=== PATIENT | male | born 1955 | race Caucasian/White ===

== ENCOUNTER 2021-09-03 06:53 | Observation (INO) ==
--- NOTE | 2021-08-30 16:15 | Anesthesiology Consultation ---
Date of Service August 30, 2021 Assessment & Plan (1) Encounter for pre-operative examination: - check CBC with diff, BMP and coags am DOS. - Pt expresses concern with neuraxial anesthesia related to concerns with significant pain/paresthesias with cortisone injections in past. We discussed GA vs neuraxial anesthesia risks/benefits.He will have final discussion with anesthesiologist am DOS. - Surgeon's office requested anesthesia evaluation if patient is acceptable outpatient joint candidate. Case was reviewed with Dr. Shelton who advised patient isNOToutpatient joint candidate given his cardiac history. Laura at surgeon's office made aware. - cardiology office visit 07/08/2021 [place]: "...history of CAD s/p RCA and 1st Diagonal Stents, Dyslipidemia, Hypertension, COPD, Anxiety/Depression, and Tobacco Use -- who presents today for routine Cardiologic Follow-up...stable and asymptomatic from a cardiac standpoint...remains physically active on a daily basis -- and he admits to chronic APONTE that consistently responds to his albuterol rescue inhaler. Patient has not experienced any angina pectoris or symptoms, overt signs or symptoms heart failure, nor has he had any symptoms suggestive of dysrhythmia...blood pressure appears to be controlled..." Patient advised to continue medication regimen, increase aerobic activity, stop tobacco use and follow-up in 6 months. - medical pre-op evaluation and optimization 06/09/2021 [place]: "...preoperative clearance for an upcoming RIGHT TKA surgical intervention...After a careful revi ew of his chart, evaluation of his medical file, and a thorough physical examination, I have found that he is an acceptable risk surgical candidate. He is guarded under the condition of his cardiac, pulmonary functional capacity. At this time, patient is medically cleared. After careful discussion of risks and benefits of surgical intervention, Mr. Kaur wishes to pursue the proposed surgical intervention...History of coronary artery disease / htn - stable...Restart Lisinopril and Metoprolol. Continue taking aspirin 81 milligrams, atorvastatin 80 milligrams, lisinopril 2.5 milligrams, metoprolol, and nitroglycerin as needed..." - COVID screening: Per child welfare director on 08/30/2021: Travel screen negative, no known COVID-19 positive contacts or current COVID-19 related symptoms in past 2 weeks. Patient vaccinated. Surgeon's office not requiring pre-op COVID testing given positive COVID test 06/15/2021. Chart Review Chart Review: Acceptable Risk for Surgery and Patient NOT seen in Pre Admission Testing History Surgery Operation Date: 09/03/21 13:00 Proposed Procedures p Right Total Knee Arthroplasty - Joshua Andrew DO Surgery re-scheduled since 05/19/2021 anesthesia review. Below information obtained from that review and updated records. Height/Weight Height: 5 ft 8 in Weight: 76.204 kg Allergies Allergy/AdvReac Type Severity Reaction Status Date / Time ibuprofen [From Motrin] Allergy Intermediate GI Upset, Verified 08/30/21 15:06 diffuse rash Medications Home Medications Medication Instructions Recorded Confirmed Last Taken aspirin 81 mg tablet,delayed 81 mg PO QAM 03/19/18 08/30/21 02/03/21 08:00 release (Aspir-) nitroglycerin 0.4 mg sublingual 0.4 mg SUBLINGUAL DIRECTED PRN 03/19/18 08/30/21 Unknown tablet (Nitrostat) albuterol sulfate 90 mcg/actuation 2 puffs INH Q6H PRN #6.7 gm 11/13/19 08/30/21 02/02/21 14:30 aerosol inhaler (Ventolin HFA) capsaicin 0.1 % topical cream 1 applic TOPICAL TID PRN #60 g 09/16/20 08/30/21 Unknown (Arthritis Pain Relief (capsaicin)) evolocumab 140 mg/mL subcutaneous See Rx Instructions .ROUTE 11/19/20 08/30/21 01/21/21 17:00 syringe (Repatha Syringe) .COMPLEX #6 ml ezetimibe 10 mg tablet 10 mg PO QAM #90 tab 12/29/20 08/30/21 02/03/21 08:00 lisinopril 2.5 mg tablet 2.5 mg PO QAM #90 tab 06/09/21 08/30/21 Unknown metoprolol succinate 25 mg 25 mg PO QAM #90 tab 06/09/21 08/30/21 Unknown tablet,extended release 24 hr betamethasone dipropionate 0.05 % 1 applic TOPICAL BID PRN #45 g 07/26/21 08/30/21 Unknown topical cream tramadol 50 mg tablet 50 mg PO Q6H PRN #30 tab 08/15/21 08/30/21 Unknown Past Medical History Medical History Anxiety and depression Bipolar disorder Chronic back pain Chronic obstructive pulmonary disease, unspecified stable, rescue inhaler use every few days with higher levels of activity Closed compression fracture of L3 vertebra 02/2019 (no surgical intervention/conservative management) Coronary artery disease First diagonal and RCA PCI (2012, 2014) Cardiac Cath 2017 ([employer] TUBE of distal circumflex) Degenerative disc disease Dyslipidemia (high LDL; low HDL) Hearing difficulty Heart attack Total x3 () Follows with [facility] ([facility]) History of COVID-19 06/15/21 *SYMPTOMS ONLY NAUSEA (TESTED AT [facility]) Hx of rheumatic fever As child Hypertension Post traumatic stress disorder Restless legs syndrome Patient denied h/o stroke, seizures, heart failure, DM, blood clots or blood transfusions. Past Family History Family History Other Adopted Past Surgical History Surgical History History of arthroscopy Right knee PMM, chondroplasty (02/04/21): LMA#4 at [facility]. No issues per anesthesia progress note. History of back surgery Lumbar decompression History of cardiac cath 2008 ([facility]) First diagonal and RCA PCI (2012, 2014) Cardiac Cath 03/2018 [employer] TU[employer] of distal circumflex ([facility]) History of cholecystectomy History of cochlear implant right osteointegrated implant History of colonoscopy History of heart artery stent First diagonal and RCA PCI (2012, 2014) History of laminectomy L4-S1 Social History Smoking Status: Current every day smoker tobacco type: cigarettes Smoking cigarettes per day: 10 CIG PER DAY*ADVISED Do You Dip or Chew Tobacco: No Hx Alcohol Use: No Alcohol type: beer alcohol intake frequency: other Hx Substance Use: Yes substance use type: marijuana Substance Use Type Other:: smokes few times per month, aware of pre-op interval Last Used Substance: Unknown Last Used Substance Other:: ADVISED Review of Systems Patient denied chest pain, shortness of breath, dyspnea on exertion, snoring, witnessed apneas, reflux, fever, chills, cough, wheezing, or palpitations. Physical Exam Vital Signs Vitals BP 123/79 P 78 TEMP 97.7 SP02 98% on RA RESP 17 Physical Full cervical extension range of motion without pain Full TMJ range of motion TMD 3.5 finger breaths Mallampati Score 3 Dentition: edentulous, full upper and lower dentures Lungs: normal respiratory effort. Clear throughout to auscultation, no adventitious breath sounds Cardiac: regular rate and rhythm, no murmurs noted Carotid arteries: negative bruit bilat Extremities: no distal extremity edema Lab Results Anesthesia Preop Results Results Lab Comments: K: 5.3 05/19/2021, 4.3 05/25/2021. Testing Electrocardiogram Date: 05/19/21 Normal sinus rhythm, rate 74 bpm. Cardiac Catheterization Date: 03/19/18 Summary: 1. Severe single-vessel coronary artery disease -Chronic total occlusion of distal circumflex; left PLB fills via left to left collaterals 40-50% mid LAD Widely patent diagonal, R-PAV stents 2. Normal intracardiac filling pressure Recommendations: Maximize antianginal therapy Continued ASCVD risk factor modification If refractory symptoms in the future could consider FFR with possible PCI to mid LAD. PCI of LAD would likely involve long, small-diameter stent across bifurcation of first diagonal. Other Testing CT lung 09/18/2020: IMPRESSION: 1. Minimal dependent groundglass opacities of the posterior segment right upper lobe suggest atelectasis or a mild nonspecific pneumonitis. 2. Mild emphysema. 3. No suspicious pulmonary nodules. 4. Extensive coronary artery calcifications. [place] AAA screening 09/18/2020: IMPRESSION: Mildly ectatic distal abdominal aorta without evidence for aneurysm. This is similar to the prior study Aorto-iliac duplex 08/26/2020: <49% stenosis in the aorto-iliac system Ectatic proximal abdominal aorta (2.5 cm) Compared to 01/16/2019, there are no significant changes
--- NOTE | 2021-09-02 13:51 | History & Physical Report ---
Date of Service September 02, 2021 Assessment & Plan (1) Osteoarthritis of right knee: We will proceed with a right total knee arthroplasty. Postoperatively he will be started on aspirin for DVT prophylaxis and kept overnight for postop medical management. He plans to use energy physical therapy upon discharge. History of Present Illness Chief Complaint: Osteoarthritis of the right knee. Primary Care Provider: HOLA Tonwsend Ray is a pleasant 65-year-old male who I did a right knee arthroscopy on in September 2000. He was found to have advanced arthritis at that time. Unfortunately his knee is never gotten better. He continues to be very painful. After failing extensive conservative treatment, he has elected proceed with a right total knee arthroplasty. Allergies Allergy/AdvReac Type Severity Reaction Status Date / Time ibuprofen [From Motrin] Allergy Intermediate GI Upset, Verified 08/30/21 15:06 diffuse rash Home Medications Medication Instructions Recorded Confirmed Type aspirin 81 mg tablet,delayed 81 mg PO QAM 03/19/18 08/30/21 History release (Aspir-) nitroglycerin 0.4 mg sublingual 0.4 mg SUBLINGUAL DIRECTED PRN 03/19/18 08/30/21 History tablet (Nitrostat) albuterol sulfate 90 mcg/actuation 2 puffs INH Q6H PRN #6.7 gm 11/13/19 08/30/21 Rx aerosol inhaler (Ventolin HFA) capsaicin 0.1 % topical cream 1 applic TOPICAL TID PRN #60 g 09/16/20 08/30/21 Rx (Arthritis Pain Relief (capsaicin)) evolocumab 140 mg/mL subcutaneous See Rx Instructions .ROUTE 11/19/20 08/30/21 Rx syringe (Repatha Syringe) .COMPLEX #6 ml ezetimibe 10 mg tablet 10 mg PO QAM #90 tab 12/29/20 08/30/21 Rx lisinopril 2.5 mg tablet 2.5 mg PO QAM #90 tab 06/09/21 08/30/21 Rx metoprolol succinate 25 mg 25 mg PO QAM #90 tab 06/09/21 08/30/21 Rx tablet,extended release 24 hr betamethasone dipropionate 0.05 % 1 applic TOPICAL BID PRN #45 g 07/26/21 08/30/21 Rx topical cream tramadol 50 mg tablet 50 mg PO Q6H PRN #30 tab 08/15/21 08/30/21 Rx Past Med/Surg History Medical History Anxiety and depression Bipolar disorder Chronic back pain Chronic obstructive pulmonary disease, unspecified stable, rescue inhaler use every few days with higher levels of activity Closed compression fracture of L3 vertebra 02/2019 (no surgical intervention/conservative management) Coronary artery disease First diagonal and RCA PCI (2012, 2014) Cardiac Cath 2017 ([employer] WORK[employer] of distal circumflex) Degenerative disc disease Dyslipidemia (high LDL; low HDL) Hearing difficulty Heart attack Total x3 () Follows with [facility] ([facility]) History of COVID-19 06/15/21 *SYMPTOMS ONLY NAUSEA (TESTED AT [facility]) Hx of rheumatic fever As child Hypertension Post traumatic stress disorder Restless legs syndrome Surgical History History of arthroscopy Right knee PMM, chondroplasty (02/04/21): LMA#4 at [facility]. No issues per anesthesia progress note. 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 ([facility]) History of cholecystectomy History of cochlear implant right osteointegrated implant History of colonoscopy History of heart artery stent First diagonal and RCA PCI (2012, 2014) History of laminectomy L4-S1 Family History Other Adopted Social History Smoking Status: Current every day smoker Tobacco Type: Cigarettes packs per day: 0.5; Cigarettes Per Day: 10 CIG PER DAY*ADVISED; Second Hand Exposure: Yes; Hx Alcohol Use: No Hx Substance Use: Yes Prescribed Medications: Marijuana Last Used Substance: Unknown Last Used Substance Other:: ADVISED Substance Use Type Other:: smokes few times per month, aware of pre-op interval Preferred Language: [place] Communication Ability: Effective Visual Impairment: No Limitations Hearing Ability: Use of Hearing Aid Wood Grainer Required: No Beliefs That Will Affect Care: None marital status: Current Living Situation: Family Current Living Situation Comment: Lives with and daughter current occupational status: retired Feels Safe at Home: Yes caffeine: Yes during the past year weight has: remained stable Dental Care, Regularly: No Physical Activity Frequency: Daily Seatbelt Use: always Sunscreen Use: No Assistive Devices: Denture - Upper, Denture - Lower and Glasses Review of Systems All systems reviewed & are unremarkable except as noted in HPI & below. Physical Exam On physical examination of the right knee, he has no effusion on exam. His motion of 0 to 125 degrees. He has no instability. He has pain over the distal medial femoral condyle and over the medial joint line. Constitutional WD/WN, vitals as above Eyes PERRL, conjunctivae normal, anicteric sclerae ENMT external ear and nose normal, oropharynx normal Neck trachea midline, no thyromegaly Respiratory normal respiratory effort Cardiovascular RRR, no murmur, no edema Gastrointestinal (Abdomen) normal bowel sounds, soft, nontender, no hepatosplenomegaly Psychiatric A+Ox3, euthymic affect Results & Data Results & Data Laboratory Results . Diagnostic Findings X-rays of the right knee do show medial compartment arthritis with some joint space narrowing and some obvious cartilage defects. PG Care Time/CCT Total # of Minutes Spent Total Time Spent with Patient: Total time spent is greater than 50% in coordination of care (as documented) at patient's floor/unit and/or counseling patient: Coding Level of Care Code None Diagnoses Osteoarthritis of right knee M17.11
[~2021-09-03 06:53] MED LIST: ACETAMINOPHEN 500 MG TAB PO SCH; FAMOTIDINE 20 MG TAB PO SCH; GABAPENTIN 300 MG CAP PO SCH; LR 500ML BOLUS, THEN 15ML/HR IV SCH; LR 60ML/HR IV SCH; ceFAZolin 2000MG 2,000 MG/15 ML SYR IV SCH; dexAMETHasone 4 MG TAB PO SCH
[2021-09-03] MEDS ORDERED: ROPIVACAINE 0.5% 5 MG/ML 30 ML VIAL ONE (07:13)
[2021-09-03] MEDS ORDERED: BUPIVACAINE 0.5 % 5 MG/1 ML PF 10ML VIAL ONE (07:13)
[2021-09-03] MEDS ORDERED: MIDAZOLAM HCL 1 MG/ML 2ML VIAL ONE (07:20)
[2021-09-03] MEDS ORDERED: PROPOFOL IV EMULSION 10 MG/ML 20 ML VIAL IV ONE (07:20)
[2021-09-03] MEDS ORDERED: fentaNYL citrate 100 MCG/2 ML VIAL ONE ×2 (07:20→09:38)
[2021-09-03 07:28] LABS: Basophils # (auto) 0.02 K/uL (0-0.2); Basophils % (auto) 0.2 %; Eosinophils % (auto) 2.2 %; Hematocrit (blood only) 49.4 % (42-52); Hemoglobin 17.5 g/dL (14.0-18.0); Immature Granulocytes # (auto) 0.02 K/uL (0.00-0.02); Immature Granulocytes % (auto) 0.2 %; Lymphocytes # (auto) 1.27 K/uL (1.2-3.4); Lymphocytes % (auto) 13.9 %; Mean Corpuscular Hemoglobin 31.8 pg (25-34); Mean Corpuscular Volume 89.7 fL (80-100); Mean Platelet Volume 9.2 fL (7.4-10.4); Monocytes # (auto) 0.87 K/uL (0.11-0.59); Monocytes % (auto) 9.5 %; Neutrophils # (auto) 6.77 K/uL (1.4-6.5); Platelet Count 250 K/uL (130-400); RDW Coefficient of Variation 13.9 % (11.5-14.5); RDW Standard Deviation 45.9 fL (36.4-46.3); Red Blood Count 5.51 M/uL (4.7-6.1); White Blood Count 9.15 K/uL (4.8-10.8)
[2021-09-03 07:37] LABS: Partial Thromboplastin Time 28.6 Seconds (21.0-31.0); Prothrombin Time 10.9 Seconds (9.0-12.0)
[2021-09-03 07:50] LABS: Mean Corpuscular Hgb Conc 35.4 g/dL (32-36)
[2021-09-03 07:56] LABS: Calcium 9.8 mg/dl (8.5-10.1); Creatinine Clr Calc Pharmacy 42.9 ml/min; Est GFR (African American) 49.8 ml/min; Est GFR (Non-African American) 42.9 ml/min; Potassium 4.2 mmol/L (3.5-5.1)
--- NOTE | 2021-09-03 08:09 | History & Physical Bridge Note ---
Date of Service September 03, 2021 History & Physical Bridge Note I have examined the patient, reviewed the History & Physical and in the interval since the performance of the History & Physical I have noted the following changes of clinical significance: no changes noted
[2021-09-03] MEDS ORDERED: TRANEXAMIC ACID 100 MG/ML 10 ML VIAL IV ONE (08:39)
[2021-09-03] MEDS ORDERED: TRANEXAMIC ACID / 0.7% NACL 1000MG/100ML BAG IV ONE (08:40)
[2021-09-03] MEDS ORDERED: ONDANSETRON INJ 2 MG/ML 2 ML VIAL IV PRN ×2 (08:53→12:21)
[2021-09-03] MEDS ORDERED: ePHEDrine sulfate 50 MG/ML AMP IV PRN (08:53)
[2021-09-03] MEDS ORDERED: ATROPINE SULFATE 0.1 MG/ML 10ML SYR IV PRN (08:53)
[2021-09-03] MEDS ORDERED: PROMETHAZINE HCL 12.5 MG in SODIUM CHLORIDE 0.9% 50 ML IV PRN (08:53)
[2021-09-03] MEDS ORDERED: MoRPHine SULFATE 10 MG/ML CARP/VIAL IV PRN (08:53)
[2021-09-03] MEDS ORDERED: TRANEXAMIC ACID 1,000 MG **IV Intra-op IV ONE (09:00)
[2021-09-03] MEDS ORDERED: PHENYLEPHRINE 100MCG/ML 5ML SYR ONE (09:13)
[2021-09-03] MEDS ORDERED: ONDANSETRON INJ 2 MG/ML 2 ML VIAL ONE (09:13)
[2021-09-03] MEDS ORDERED: TRANEXAMIC ACID 1,000 MG **IV Pre-op IV ONE (09:15)
[2021-09-03] MEDS ORDERED: Ketorolac (*for OR use only*) 30 MG, dexAMETHasone 4 MG, KETAMINE HCL (**OR use only) 1... INFIL ONE (09:15)
[2021-09-03] MEDS ORDERED: ePHEDrine sulfate 50 MG/ML AMP ONE (09:24)
--- NOTE | 2021-09-03 10:22 | Operative Report ---
PG Post Operative Report Pre & Post Diagnosis Operation Date: 09/03/21 09:20 Pre-Op Diagnosis: Right Knee Degenerative Joint Disease Post-Op Diagnosis: Right Knee Degenerative Joint Disease I identified the patient and participated in the time-out.: Yes Procedure Operation Date: 09/03/21 09:20 Actual Procedures p Right Total Knee Arthroplasty, Cemented(Right) - Joshua Andrew DO Surgeon Joshua Andrew DO Advanced Developer Joshua Zelaya PAC Estimated Blood Loss 10 Findings Consistent with Post-Op Diagnosis Specimens Right femoral and tibial bone Complications none Disposition Disposition: Recovery Room Indications Ray is a pleasant six 6-year-old male who is been doing with chronic increasing right knee pain. I did knee arthroscopy on him over the last summer. Unfortunately found full-thickness chondral loss. After failing conservative treatment, he elected proceed with a right total knee arthroplasty. Description of Procedure Implants used: I used a [employer] total knee arthroplasty system with a size 10 standard femur, F tibia, 34 oval patella, and a size 10 medial congruent polyethylene bearing. All components were cemented in place with Biomet cement. Ray arrived [facility] for the above procedure. He was seen in the preoperative holding area and the operative extremity was identified and signed. He was given a preoperative antibiotic, TXA, a spinal anesthetic and an adductor nerve block. He was taken back to the operating room and laid on the table in supine position. He was given basic sedation. The operative knee was then prepped and draped in sterile fashion. A timeout was done, and the patient and the operative extremity was properly identified. A midline incision was made directly over the patella. Dissection was taken down to the extensor mechanism. A subvastus arthrotomy was used. The medial retinaculum was released and the fat pad was mostly excised. The knee was flexed and the ACL, PCL, and meniscus were removed. A drill was sent down the center of the femoral canal followed by an intramedullary rohith. Off that rohith a distal femoral cutting block was placed. 9 mm was resected off the distal femur at 5 of valgus. A posterior referencing AP sizing guide was then placed on the distal femur. The femur measured to be a size 10 standard. 2 drill holes were placed in 3 of external rotation. A 4-in-1 cutting block was then impacted into place. Anterior, posterior, and chamfer cuts were then made. The proximal tibia was then exposed. An external tibial alignment guide was placed. A tibial cut guide was then anchored in place and the proximal tibia was then resected. The posterior aspect of the knee was then opened up and any additional meniscus fragments and osteophytes were removed. The tibia measured to be a size F. The tibial plate was then placed in the appropriate rotation and the tibia was drilled and punched. Trial components were then placed. I used a size 10 medial congruent po lyethylene insert. The knee was brought through a full range of motion and felt to be stable. The peg holes for the femoral component were then drilled. The patella was then everted and 9 mm was resected off the posterior aspect of the patella. The patella measured to be a size 34 oval. 3 peg holes were then drilled. A trial patella was placed. The knee was once again brought through a full range of motion and felt to be stable. Trial components were then removed. The surrounding soft tissues were injected with 100 cc of an orthopedic pain control cocktail. All components were then c emented into place with Biomet cement. The final polyethylene insert was then snapped into place. Once cement was dry the tourniquet was deflated. Hemostasis was obtained. A dilute betadyne lavage was then done for 3 minutes. The joint was then irrigated with normal saline solution. The subvastus arthrotomy was then closed with #1 Vicryl suture. The skin was closed with 2-0 Vicryl, 3-0V lock suture, and asmita. A soft compressive dressing was placed. He was then transferred to a hospital bed and taken to the postanesthesia care unit in stable condition. He tolerated the procedure well. Joshua Zelaya PA-C, was present for the entire procedure. He was critical for patient positioning, prepping, draping, retraction exposure, wound closure and application of sterile dressing. I attest to the content of the Intraoperative Record and any orders documented therein. Any exceptions are noted below.
[2021-09-03] MEDS: fentaNYL citrate 100 MCG/2 ML VIAL IV PRN ×2 (10:55→11:00)
--- NOTE | 2021-09-03 11:06 | XRay Report ---
XR knee RT 1 or 2V routine CLINICAL HISTORY: Surgical Post Op COMPARISON: Right knee radiographs October 21, 2020. FINDINGS: Alignment of the total right knee arthroplasty is anatomic. There is no periprosthetic fra cture or unexpected radiopaque foreign body. There are skin asmita. IMPRESSION: Expected findings following total right knee arthroplasty. ACT 112: Negative or not required by law. Electronically signed by: Javid Gerardo M.D. 09/03/2021 11:05 AM
[2021-09-03] MEDS: HYDROmorphone INJ 2 MG/ML SYR/VIAL IV PRN ×4 (11:08→11:25)
--- NOTE | 2021-09-03 11:42 | Anesthesiology Progress Note ---
Date of Service September 03, 2021 Anesthesia Post Procedure Vital Signs Vital Signs: Temp Pulse Pulse Resp BP Pulse Ox 09/03/21 11:35 36.1 C L 66 16 134/77 97 09/03/21 11:25 68 16 135/78 95 09/03/21 11:15 73 16 140/81 94 09/03/21 11:05 66 18 142/79 H 100 09/03/21 10:55 77 19 127/93 99 09/03/21 10:45 78 23 136/77 100 09/03/21 10:38 36.4 C L 65 23 116/65 99 09/03/21 07:49 36.4 C L 74 18 169/102 H 97 Pain Intensity Right Knee: Pain Intensity: 4 Transfer of Care Handoff Completed per policy Notes Mental Status: alert / awake / arousable and participated in evaluation Patient Amnestic to Procedure: Yes Nausea / Vomiting: adequately controlled Pain: adequately controlled Airway Patency, RR, SpO2: stable & adequate BP & HR: stable & adequate Hydration State: stable & adequate Anesthetic Complications: no major complications apparent
[2021-09-03] MEDS ORDERED: NITROGLYCERIN SL 0.4 MG/TAB TAB SL PRN (12:21)
[2021-09-03] MEDS ORDERED: ALBUTEROL HFA 8 GM INHALER INH PRN (12:21)
[2021-09-03] MEDS ORDERED: bisacodyL 10 MG SUPP PR PRN (12:21)
[2021-09-03] MEDS ORDERED: MAGNESIUM HYDROXIDE SUSP 30 ML UDC PO PRN (12:21)
[2021-09-03] MEDS ORDERED: METOCLOPRAMIDE HCL INJ 5 MG/ML 2 ML VIAL IV PRN (12:21)
[2021-09-03] MEDS ORDERED: NALOXONE HCL 0.4 MG/1 ML VIAL/CARP IV PRN (12:21)
[2021-09-03] MEDS: KETOROLAC TROMETHAMINE 15 MG/ML VIAL IV SCH ×2 (13:12→19:55)
[2021-09-03] MEDS: ACETAMINOPHEN 500 MG TAB PO SCH ×2 (14:16→21:03)
[2021-09-03] MEDS: HYDROmorphone INJ 0.5 MG/0.5 ML SYR IV PRN ×2 (14:22→18:15)
[2021-09-03] MEDS: SODIUM CHLORIDE 0.9% 1000ML 1,000 ML IV SCH (14:46)
[2021-09-03] MEDS: oxyCODONE HCL IR 5 MG TAB (IMMEDIATE RELEASE) PO PRN ×2 (16:47→20:46)
[2021-09-03] MEDS: ceFAZolin 2000MG 2,000 MG/15 ML SYR IV SCH (18:00)
[2021-09-03] MEDS: ASPIRIN 81 MG ECTAB PO SCH (20:36)
[2021-09-03] MEDS: DOCUSATE SODIUM 100 MG CAP PO SCH (20:37)
[2021-09-03] MEDS ORDERED: SENNA 8.6 MG TAB PO SCH (21:00)
[2021-09-04] MEDS: ceFAZolin 2000MG 2,000 MG/15 ML SYR IV SCH (00:38)
[2021-09-04] MEDS: KETOROLAC TROMETHAMINE 15 MG/ML VIAL IV SCH ×2 (00:38→06:03)
[2021-09-04] MEDS: SODIUM CHLORIDE 0.9% 1000ML 1,000 ML IV SCH (00:41)
[2021-09-04] MEDS: oxyCODONE HCL IR 5 MG TAB (IMMEDIATE RELEASE) PO PRN ×2 (04:05→09:02)
[2021-09-04] MEDS ORDERED: TRANEXAMIC ACID 100 MG/ML 10 ML VIAL IV SCH (06:00)
[2021-09-04] MEDS: ACETAMINOPHEN 500 MG TAB PO SCH (06:02)
[2021-09-04] MEDS ORDERED: dexAMETHasone 4 MG TAB PO SCH (08:00)
--- NOTE | 2021-09-04 08:14 | Orthopedic Progress Note ---
Date of Service September 04, 2021 Assessment & Plan (1) Status post right knee replacement: Overall is doing very well. Is not having much pain in the right knee. He will be seen by physical therapy today for ambulation and range of motion exercises. His dressing can be changed by the nursing staff after physical therapy. He is on aspirin for DVT prophylaxis. He can be discharged home later today. He will follow-up with orthopedics in 2 weeks. Pippa Bell was seen and examined at bedside this morning. Overall is doing very well. Is not any much pain in the right knee. He has been up and ambulating to the bathroom. He has no complaints. Review of Systems All systems reviewed & are unremarkable except as noted in HPI & below. Physical Exam On physical examination of the right knee, the dressing is clean and dry. His legs out full extension. He has active dorsiflexion and plantarflexion of the right ankle.. Results & Data Results & Data Laboratory Results . Diagnostic Findings Postoperative x-rays of the right knee show the prosthesis to be in anatomic alignment without any evidence of fracture, desiccation, or loosening. PG Care Time/CCT Total # of Minutes Spent Total Time Spent with Patient: Total time spent is greater than 50% in coordination of care (as documented) at patient's floor/unit and/or counseling patient: Coding Level of Care Code 82836 Post Operative Follow-Up Diagnoses Status post right knee replacement Z96.651
--- NOTE | 2021-09-04 08:15 | Discharge Summary ---
Date of Service September 04, 2021 Admission HPI (Per Admitting) Ray is a pleasant 65-year-old male who I did a right knee arthroscopy on in September 2000. He was found to have advanced arthritis at that time. Unfortunately his knee is never gotten better. He continues to be very painful. After failing extensive conservative treatment, he has elected proceed with a right total knee arthroplasty. Admission Exam (Per Admitting) On physical examination of the right knee, he has no effusion on exam. His motion of 0 to 125 degrees. He has no instability. He has pain over the distal medial femoral condyle and over the medial joint line. Principal Diagnosis Same as "Discharge Diagnosis" noted below under Discharge Instructions. Discharge Exam On physical examination of the right knee, the dressing is clean and dry. His legs out full extension. He has active dorsiflexion and plantarflexion of the right ankle.. Discharge Data Procedures Performed Operation Date: 09/03/21 09:20 Actual Procedures p Right Total Knee Arthroplasty, Cemented(Right) - Joshua Andrew DO Ordered Studies 09/03/21 05:00 US - OR guided needle placemen Routine Hospital Course (1) Status post right knee replacement: On September 03, 2021 Ray arrived at [facility] and underwent a right knee replacement without complication. He had a general anesthetic. Postoperatively he was started on aspirin for DVT prophylaxis and transferred to the general orthopedic floors. His hospital course was uneventful. On postop day #1 his vital signs were stable and his pain was well controlled. He was able to participate well with physical therapy doing ambulation and range of motion exercises. He was then discharged home. He will follow-up with orthopedics in 2 weeks. PG Care Time/CCT Total # of Minutes Spent Total Time Spent with Patient: Total time spent is greater than 50% in coordination of care (as documented) at patient's floor/unit and/or counseling patient: Discharge Plan Discharge Items Patient Disposition: Home - Home Health Services Reason For Visit: Right Knee Degenerative Joint Disease Discharge Diagnosis: Right knee replacement Activity: Per Instructions section Non-emergency contact: Surgeon Call non-emergency contact if: your wound has increased redness and your wound has increased drainage Follow-up/Referrals: Leonard Nicolas CRNP [Primary Care Provider] - Diet: Regular Addtl Attending Provider Instructions: Activity and Therapy Recommendations: * If you are using [facility] then therapy will be provided at your home until they feel you have accomplished all of your goals. * If you are using [facility] then Physical Therapy will be provided until they feel you are ready to start Outpatient Physical Therapy. * If you are not using home therapy then Outpatient Physical Therapy should start about 3-5 days from your day of surgery. Therapy will last about 6-10 weeks * It is important not to put a pillow under your knee when you are relaxing or sleeping. It is just as important to make sure you are getting your knee perfectly straight as it is to regain your knee bend. * You were shown a series of exercises in the hospital. Do these exercises three times each day including the exercises you were shown in physical therapy. * Get up and walk several times each day. For the first four weeks, try not to stand or walk for more than one hour at a time. If you do stand or walk for more than one hour, you will not hurt anything, but your leg will likely swell. * As you feel comfortable, you may change from the walker or crutches to a cane and then to independent walking. Medications: * Narcotic You will likely be sent home from the hospital with a prescription for the narcotic pain medication that worked best throughout your stay. * Aspirin Most patients will be required to take Aspirin 81mg twice a day for 6 weeks after surgery. This is obtained [id number] and a prescription is not necessary. * Other medications may be prescribed for specific circumstances. If you have any questions, please call the office at . * Resume previous home medications unless otherwise instructed TEDs/Elastic Stockings: The white elastic stockings help limit swelling and prevent blood clots from forming in your legs.~ The more you wear them, the more they work. Wear them for six weeks. Dressing Care: The dressing can be changed after physical therapy on postop day #1. Daily dry dressing changes for a few days, especially if the incision is still draining some. If the incision is not draining then you may leave the asmita open to air. If there is a little bit of drainage or if the asmita are getting stuck on your clothing then cover the incision with a dry dressing. The asmita will be removed at your 2 week follow-up appointment. Showering: You may shower 5 days from the day of surgery as long as the incision is no longer draining. You may shower with the asmita exposed. Let soapy water run over the asmita and pat them dry. Do not scrub or soak the incision. Things To Watch For: * Drainage from the incision site that occurs more than one week after your surgery. * Increased redness at the incision site. * Fever above 102 degrees Fahrenheit. * Unusual chest pain or shortness of breath. * Call [facility] at with any of the above problems Follow-Up Visit: Follow-up with Dr. Andrew's PA (Joshua Zelaya) 2-3 weeks after your day of surgery. He will remove your asmita and answer any questions. If you have any additional questions or concerns, Dr Andrew is usually in the office at the same time and will be available An appointment was probably scheduled when you signed-up for surgery in the office. If you have any questions call Office Instructions: More detailed instructions as well as Frequently Asked Questions were provided in a folder by our office when you signed-up for surgery. Please review these instructions when you get home. If you have any further questions or concerns, please feel free to call the office at [phone] Pending Studies at Discharge: No Stand-Alone Forms: My [facility], Smoking Cessation Medications and DC Order Prescriptions: New oxycodone-acetaminophen 5-325 mg tablet 1 tab PO Q6H PRN (Reason: pain) Qty: 40 RF: 0 aspirin 81 mg Tablet,Delayed Release (Dr/Ec) 81 mg PO BID 42 Days Qty: 84 RF: 0 Continued albuterol sulfate [Ventolin HFA] 90 mcg/actuation HFA aerosol inhaler 2 puffs INH Q6H PRN (Reason: shortness of breath or wheezing) Qty: 6.7 RF: 2 tramadol 50 mg tablet 50 mg PO Q6H PRN (Reason: pain) Qty: 30 RF: 0 capsaicin [Arthritis Pain Relief(capsaic)] 0.1 % cream 1 applic topical TID PRN (Reason: joint pain) Qty: 60 RF: 0 Repatha Syringe 140 mg/mL syringe See Rx Instructions .ROUTE .COMPLEX Qty: 6 RF: 3 lisinopril 2.5 mg tablet 2.5 mg PO QAM Qty: 90 RF: 1 metoprolol succinate 25 mg tablet extended release 24 hr 25 mg PO QAM Qty: 90 RF: 1 betamethasone dipropionate 0.05 % cream 1 applic topical BID PRN (Reason: skin irritation) Qty: 45 RF: 0 nitroglycerin [Nitrostat] 0.4 mg Tablet, Sublingual 0.4 mg Sublingual DIRECTED PRN (Reason: Chest Pain ) RF: 0 ezetimibe [Zetia] 10 mg tablet 10 mg PO QAM RF: 0 Discontinued aspirin [Aspir-81] 81 mg Tablet,Delayed Release (Dr/Ec) 81 mg PO QAM RF: 0 Discharge Orders: Discharge Order (Routine); Ordered 09/04/21 Ordered By: Joshua Andrew Admission Data Admit Date/Time: 09/03/21 12:10 Attending Provider: Joshua Andrew Admit Provider: Joshua Andrew Primary Care Provider: Leonard Nicolas
[2021-09-04] MEDS ORDERED: MULTIVITAMIN TAB PO SCH (09:00)
[2021-09-04] MEDS ORDERED: METOPROLOL SUCC 25MG EXT REL TAB PO SCH (09:00)
[2021-09-04] MEDS ORDERED: lisinopril 2.5 MG TAB PO SCH (09:00)
[2021-09-04] MEDS ORDERED: EZETIMIBE 10 MG TABLET PO SCH (09:00)
[2021-09-04] MEDS: ASPIRIN 81 MG ECTAB PO SCH (09:04)
[2021-09-04] MEDS: DOCUSATE SODIUM 100 MG CAP PO SCH (09:05)
== END 2021-09-04 12:19 | disposition home health service (06) ==
LOC: 3E 06:53 → ASU 06:53
DX: Z95.5 Presence of coronary angioplasty implant and graft; E78.5 Hyperlipidemia, unspecified; J44.9 Chronic obstructive pulmonary disease, unspecified; M17.11 Unilateral primary osteoarthritis, right knee; I10 Essential (primary) hypertension; F17.210 Nicotine dependence, cigarettes, uncomplicated; Z88.6 Allergy status to analgesic agent; Z79.82 Long term (current) use of aspirin; I25.2 Old myocardial infarction; I25.10 Atherosclerotic heart disease of native coronary artery without angina pectoris; Z79.899 Other long term (current) drug therapy

== ENCOUNTER 2022-08-22 10:03 | Inpatient (IN) ==
--- NOTE | 2022-07-29 15:53 | PAT Medication Instructions ---
Medication Instructions Date of Service July 29, 2022 Home Medications Medication Instructions Recorded albuterol sulfate 90 mcg/actuation 2 puffs inhalation Q6H PRN 11/13/19 aerosol inhaler (Ventolin HFA) shortness of breath or wheezing #6.7 grams ezetimibe 10 mg tablet (Zetia) 10 mg PO QAM #90 tabs 03/17/22 hydrocodone 5 mg-acetaminophen 325 1 tab PO BID PRN pain #20 tabs 05/25/22 mg tablet nitroglycerin 0.4 mg sublingual tablet (Nitrostat) 0.4 mg sublingual UD PRN albuterol sulfate 90 mcg/actuation aerosol inhaler (Ventolin HFA) 2 puffs inhalation Q6H PRN ezetimibe 10 mg tablet (Zetia) 10 mg PO QAM hydrocodone 5 mg-acetaminophen 325 mg tablet 1 tab PO BID PRN meloxicam 15 mg tablet 15 mg PO QAM evolocumab 140 mg/mL subcutaneous syringe (Repatha Syringe) 140 mg subcut Q14D lisinopril 5 mg tablet 5 mg PO QAM Continue as directed nitroglycerin 0.4 mg sublingual tablet (Nitrostat) 0.4 mg sublingual UD PRN(if needed) ASK your surgeon for instructions meloxicam 15 mg tablet 15 mg PO QAM ASK your prescriber and surgeon evolocumab 140 mg/mL subcutaneous syringe (Repatha Syringe) 140 mg subcut Q14D DO NOT take the morning of surgery lisinopril 5 mg tablet 5 mg PO QAM Take morning of surgery With a small sip of water, OTHERWISE NOTHING TO EAT OR DRINK AFTER MIDNIGHT: albuterol sulfate 90 mcg/actuation aerosol inhaler (Ventolin HFA) 2 puffs inhalation Q6H PRN(use if needed; please bring with you to hospital day of surgery if possible) ezetimibe 10 mg tablet (Zetia) 10 mg PO QAM hydrocodone 5 mg-acetaminophen 325 mg tablet 1 tab PO BID PRN(if needed) Take evening before surgery albuterol sulfate 90 mcg/actuation aerosol inhaler (Ventolin HFA) 2 puffs inhalation Q6H PRN(if needed) hydrocodone 5 mg-acetaminophen 325 mg tablet 1 tab PO BID PRN(if needed) Other Notes If you have any questions please call us at [phone] or [phone] or [phone] or [phone]
--- NOTE | 2022-08-03 13:39 | Anesthesiology Consultation ---
Date of Service August 03, 2022 Assessment & Plan (1) Encounter for pre-operative examination: - COVID screening: Per assessment on 08/03: No known COVID-19 positive contacts or current COVID-19 related symptoms. Travel screen negative. Patient vaccinated. At surgeon discretion if preop Covid testing being done. - Outpatient joint assessment: Pt currently scheduled for inpatient pathway. If surgeon requests review for outpatient joint pathway, patient is not recommended candidate for outpatient joint program for upcoming knee revision arthroplasty from anesthesia standpoint. - S/P Right TKA (09/03/21): LMA igel#4 + PNB at [facility] (pt concern with neuraxial anesthesia given hx of significant pain/paresthesia with cortisone injections in past per 08/2021 anesthesia consult) *Discussed SAB vs GA with patient at PAT visit 08/03/22- he would again wish to be done under GA for upcoming knee arthroplasty revision* - Cardiology office visit (08/04/22): "Based on his functional status without angina pectoris, normal EKG tracing, known coronary anatomy, widely patent stents on cardiac catheterization 2018, and the fact that his left main coronary artery disease has regressed -- patient is a low to intermediate cardiac risk for his upcoming elective orthopedic procedure. Patient is aware that he should take Aspirin 81 mg daily including the morning of surgery with sips of water. There is no need for further ischemic workup at this time." Chart Review Chart Review: Acceptable Risk for Surgery and Patient seen in Pre Admission Testing Teaching & Discussion Pre-Anesthesia Teaching/Discussion Notes: Instructed NPO after midnight before surgery,except medications with 15 cc of water. Medication instructions provided according to the PAT guidelines. History Surgery Operation Date: 08/22/22 11:10 Proposed Procedures p Partial versus Complete Revision Right Total Knee Arthroplasty - Joshua Andrew, DO Height/Weight Height: 5 ft 7 in Weight: 67 kg Allergies Allergy/AdvReac Type Severity Reaction Status Date / Time ibuprofen [From Motrin] Allergy Intermediate GI Upset, Verified 08/04/22 13:51 diffuse rash Medications Home Medications Medication Instructions Recorded Confirmed Last Taken nitroglycerin 0.4 mg sublingual 0.4 mg sublingual UD PRN Chest Pain 03/19/18 08/04/22 Unknown tablet (Nitrostat) albuterol sulfate 90 mcg/actuation 2 puffs inhalation Q6H PRN 11/13/19 08/04/22 02/02/21 14:30 aerosol inhaler (Ventolin HFA) shortness of breath or wheezing #6.7 grams ezetimibe 10 mg tablet (Zetia) 10 mg PO QAM #90 tabs 03/17/22 08/04/22 06/27/22 hydrocodone 5 mg-acetaminophen 325 1 tab PO BID PRN pain #20 tabs 05/25/22 08/04/22 Unknown mg tablet meloxicam 15 mg tablet 15 mg PO QAM 06/28/22 08/04/22 06/27/22 evolocumab 140 mg/mL subcutaneous 140 mg subcut Q14D 07/29/22 08/04/22 Unknown syringe (Repatha Syringe) lisinopril 5 mg tablet 5 mg PO QAM 07/29/22 08/04/22 Unknown tramadol 50 mg tablet 50 mg PO Q8H PRN pain #30 tabs 08/03/22 08/04/22 Unknown aspirin 81 mg tablet,delayed 81 mg PO DAILY #90 tabs 08/04/22 08/04/22 Unknown release (Vandana Low Dose Aspirin) Past Medical History Medical History Adopted unsure about family history Anxiety and depression Bipolar disorder Chronic back pain Chronic obstructive pulmonary disease, unspecified Closed compression fracture of L3 vertebra 2018 (no surgical intervention > conservative management) Coronary artery disease First diagonal and RCA PCI (2012, 2014) Cardiac Cath 2018 (LUGGER of distal circumflex) Degenerative disc disease Dyslipidemia (high LDL; low HDL) Hearing difficulty Heart attack Total x3 (2008/2012/2014) Follows with [facility] ([facility]) History of COVID-19 06/15/21- nausea, tested negative at [facility] Hx of rheumatic fever As child Hypertension Post traumatic stress disorder Restless legs syndrome Exercise / Class Metabolic Activity II 4-5 Yardwork/Stairs/Walk up hill Past Family History Family History Other Adopted Past Surgical History Surgical History History of arthroscopy Right knee PMM, chondroplasty (02/04/21): LMA#4 at [facility]. No issues per anesthesia progress note. History of back surgery Lumbar decompression History of cardiac cath 2008 ([facility]) First diagonal and RCA PCI (2012, 2014) Cardiac Cath 03/2018 LUGGER of distal circumflex ([facility]); f/u stew vasques History of cholecystectomy History of cochlear implant right osteointegrated implant History of colonoscopy History of heart artery stent First diagonal and RCA PCI (2012, 2014) History of laminectomy L4-S1 History of total right knee replacement Right TKA (09/03/21): LMA igel#4 + PNB at [facility] (pt concern with neuraxial anesthesia given hx of significant pain/paresthesia with cortisone injections in past per 08/2021 anesthesia consult) Past Anesthesia History No Hx of Anesthesia Complications and No Family Hx of Anesthesia Complications History of PONV No Hx of PONV and No Hx of Motion Sickness Social History Smoking Status: Current every day smoker tobacco type: cigarettes Smoking cigarettes per day: 10 cigs/day Do You Dip or Chew Tobacco: No Hx Alcohol Use: No Hx Substance Use: Yes substance use type: marijuana (occasional) Last Used Substance Other:: 3 weeks ago Review of Systems Patient denies chest pain, shortness of breath, dyspnea on exertion, fever, chills, cough, wheezing, palpitations. Physical Exam Vital Signs VITALS BP 171/84 P 88 TEMP 98.6 SP02 97%RA RESP 16 PHYSICAL Full cervical extension range of motion. Full TMJ range of motion. TMD 3.5 finger breaths Mallampati Score 2 Dentition: upper/lower dentures Lungs: course breath sounds Cardiac: regular rate and rhythm, no murmurs noted Spine: normal Carotid arteries: negative bruit Extremities: no edema Lab Results Anesthesia Preop Results Results Anesthesia Widget: WBC 8.30 K/ul (4.8-10.8) 08/03/22 Hgb 16.0 g/dl (14.0-18.0) 08/03/22 Hct 46.0 % (42.0-52.0) 08/03/22 Plt 252 K/uL (130-400) 08/03/22 Na 137 mmol/L (136-145) 08/03/22 K 3.9 mmol/L (3.5-5.1) 08/03/22 Cl 103 mmol/L (98-107) 08/03/22 CO2 28 mmol/L (21-32) 08/03/22 BUN 10 mg/dl (6-23) 08/03/22 Creat 1.34 mg/dl (0.6-1.4) 08/03/22 Glucose Level 95 mg/dl (70-99(Fasting)) 08/03/22 PT 10.6 Seconds (9.0-12.0) 08/03/22 PTT 29.8 Seconds (21.0-31.0) 08/03/22 INR 1.0 (0.9-1.1) 08/03/22 Urine Color Yellow 06/30/22 Urine Appearance Clear (Clear) 06/30/22 Urine pH 7.5 (4.5-7.5) 06/30/22 Urine Specific [place] 1.011 (1.000-1.030) 06/30/22 Urine Protein 1+ (Negative) H 06/30/22 Urine Glucose (UA) Negative (Negative) 06/30/22 Urine Ketones Negative (Negative) 06/30/22 Urine Blood Negative (Negative) 06/30/22 Urine Nitrite Negative (Negative) 06/30/22 Urine Bilirubin Negative (Negative) 06/30/22 Urine Urobilinogen Negative (Negative) 06/30/22 Urine Leukocyte Esterase Negative (Negative) 06/30/22 Urine WBC (Auto) 1-5 /hpf (0-5) 06/30/22 Urine RBC (Auto) 0-4 /hpf (0-4) 06/30/22 Urine Hyaline Casts (Auto) 0 /lpf (0-5) 06/30/22 Urine Epithelial Cells (Auto) 10-20 /lpf (0-5) H 06/30/22 Urine Bacteria (Auto) Negative (Negative) 06/30/22 Blood Type O Positive 08/03/22 Antibody Screen NEGATIVE 08/03/22 Testing Electrocardiogram Date: 08/03/22 NSR at 83bpm. Cardiac Catheterization Date: 03/19/18 Summary: Severe single-vessel coronary artery disease- Chronic total occlusion of distal circumflex; left PLB fills via left to left collaterals. 40-50% mid LAD. Widely patent diagonal, R-PAV stents Normal intracardiac filling pressure Recommendations: Maximize antianginal therapy. Continued ASCVD risk factor modification. If refractory symptoms in the future could consider FFR with possible PCI to mid LAD. PCI of LAD would likely involve long, small-diameter stent across bifurcation of first diagonal. Other Testing US AAA screening 09/18/2020: IMPRESSION: Mildly ectatic distal abdominal aorta without evidence for aneurysm. This is similar to the prior study Aorto-iliac duplex 08/26/2020: <49% stenosis in the aorto-iliac system Ectatic proximal abdominal aorta (2.5 cm) Compared to 01/16/2019, there are no significant changes CT lung (01/28/22) No new or suspicious pulmonary nodules. No focal lung consolidations to suggest pneumonia. Emphysema. Moderate coronary artery calcifications are again noted. COVID-19 Risk Screen Screening Information COVID-19 Screen Date: 08/03/22 Exposure 21 Days Family/Household +COVID Last 21 Days: No Exposure 10 Days Any COVID Exposure Last 10 Days: No Symptoms Last 10 Days Experienced COVID Sx Last 10 Days: No + COVID 0-90 Days COVID + in Last 0-90 Days: No
[~2022-08-22 10:03] MED LIST changes: +BUPIVACAINE 0.5 % 5 MG/1 ML PF 10ML VIAL ONE; +Ketorolac (*for OR use only*) 30 MG, dexAMETHasone 4 MG, KETAMINE HCL (**OR use only) 1... INFIL SCH; +ROPIVACAINE 0.5% 5 MG/ML 30 ML VIAL ONE; +TRANEXAMIC ACID 1,000 MG **IV Intra-op IV SCH; +TRANEXAMIC ACID 1,000 MG **IV Pre-op IV SCH
[2022-08-22] MEDS ORDERED: ePHEDrine sulfate 50 MG/ML AMP IV PRN (11:08)
[2022-08-22] MEDS ORDERED: ATROPINE SULFATE 0.1 MG/ML 10ML SYR IV PRN (11:08)
[2022-08-22] MEDS ORDERED: ONDANSETRON INJ 2 MG/ML 2 ML VIAL IV PRN ×2 (11:08→17:49)
[2022-08-22] MEDS ORDERED: LIDOCAINE 2% MPF LOCAL 5 ML VIAL INFIL ONE (11:34)
[2022-08-22] MEDS ORDERED: fentaNYL citrate PF 100 MCG/2 ML VIAL ONE ×2 (11:34→13:33)
[2022-08-22] MEDS ORDERED: MIDAZOLAM HCL 1 MG/ML 2ML VIAL ONE (11:34)
[2022-08-22] MEDS ORDERED: PROPOFOL IV EMULSION 10 MG/ML 20 ML VIAL IV ONE (11:34)
[2022-08-22] MEDS ORDERED: ORTHO JOINT ANESTHETIC ONE (12:56)
--- NOTE | 2022-08-22 13:09 | History & Physical Bridge Note ---
Date of Service August 22, 2022 History & Physical Bridge Note I have examined the patient, reviewed the History & Physical and in the interval since the performance of the History & Physical I have noted the following changes of clinical significance: no changes noted
--- NOTE | 2022-08-22 15:02 | Operative Report ---
PG Post Operative Report Pre & Post Diagnosis Operation Date: 08/22/22 12:20 Pre-Op Diagnosis: Instability following right knee replacement Post-Op Diagnosis: Instability following right knee replacement I identified the patient and participated in the time-out.: Yes Procedure Operation Date: 08/22/22 12:20 Actual Procedures p revision right total knee arthroplasty with removal of the femoral component only and conversion to a PRK femoral implant and a more constrained polyethylene insert. (Right) - Joshua Andrew DO Surgeon Joshua Andrew DO Fur Dry Cleaner Joshua Zelaya PA-C Estimated Blood Loss 5 Findings Consistent with Post-Op Diagnosis Varus instability of the right knee Specimens None Description of Procedure On August 22, 2022 Ray arrived at [facility] for the above procedure. He was seen in the preoperative holding area and the operative extremity was identified and signed. Is given a preoperative antibiotic. He was taken back the operating room and laid on the table in supine position. He was put under general anesthesia. The right knee was then prepped and draped in sterile fashion. A timeout was done. The patient and the operative extremity was prepped identified. On preoperative physical examination he had gross varus instability. He did not have any valgus instability. There was no effusion of the knee. The previous midline incision was opened back up. Dissection was taken down to the extensor mechanism. A medial parapatellar arthrotomy was used. There was normal appearing synovial fluid. There was no signs of infection. Any surrounding scar tissue was removed. The 10 mm medial congruent polyethylene insert was then removed. The femoral component was then removed using a small oscillating saw. The femoral component was well fixed however I was able to remove it fairly easily without much bone loss. The tibial component was well fixed. The current tibia measured to be a size 9. The reamer was sent down the center of the femoral canal. A 4-in-1 cutting block was placed. Any bone cuts were freshened up but very little additional bone was removed. The central canal was drilled. A 9 mm PRK femoral implant with a 30 mm stem was then trialed. I was able to get a good fit. A 12 mm CCK poly was also trialed. The knee was brought through full range of motion and felt to be stable. The trials were removed. The final size 9 mm PRK femoral implant with a 30 mm stem extension was then cemented in place with Palacos G cement. Once cement had hardened a final size 12 CCK polyethylene insert was snapped into place. The torque screw was also placed. The knee was brought through full range of motion and felt to be stable. The extensor mechanism was closed with #1 Vicryl. Skin was closed with 2-0 Vicryl, 3 oh VueLock sutures, and asmita. He was then placed in a soft compressive dressing. He was then extubated and transferred to a hospital bed. He was taken to the postanesthesia care unit in stable condition. He tolerated the procedure well. Joshua Zelaya PA-C, was present for the entire procedure. He was critical for patient positioning, prepping, draping, retraction exposure, wound closure and application of sterile dressing. I attest to the content of the Intraoperative Record and any orders documented therein. Any exceptions are noted below.
[2022-08-22] MEDS: fentaNYL citrate PF 100 MCG/2 ML VIAL IV PRN ×4 (15:29→15:45)
--- NOTE | 2022-08-22 15:32 | XRay Report ---
TWO VIEWS RIGHT KNEE CLINICAL HISTORY: Postoperative examination. FINDINGS: AP and crosstable lateral portable views of the right knee are obtained. A right knee arthr oplasty is in near anatomic alignment. There has been undersurface remodeling of the patella. No acut e fracture is seen. There are expected postoperative changes around the knee including skin clips, so ft tissue edema, and subcutaneous gas. IMPRESSION: Expected postoperative changes status post right knee arthroplasty. No acute fracture is seen. ACT 112: Negative or not required by law. Electronically signed by: Akil Contreras M.D. 08/22/2022 3:31 PM
--- NOTE | 2022-08-22 15:56 | Anesthesiology Progress Note ---
Date of Service August 22, 2022 Anesthesia Post Procedure Vital Signs Vital Signs: Temp Pulse Pulse Resp BP BP Pulse Ox 08/22/22 15:50 84 12 157/93 H 95 08/22/22 15:40 81 12 156/91 H 96 08/22/22 15:30 82 15 163/99 H 100 08/22/22 15:20 67 14 140/80 99 08/22/22 15:13 36.6 C 68 16 127/79 99 08/22/22 10:39 36.6 C 82 20 160/100 H 178/111 H 99 O2 Del Method O2 Flow Rate 08/22/22 15:50 Room Air 08/22/22 15:40 Room Air 08/22/22 15:30 Oxymask 4 08/22/22 15:20 Oxymask 9 08/22/22 15:13 Oxymask 9 08/22/22 10:39 Room Air Pain Intensity Right Knee: Pain Intensity: 8 Transfer of Care Handoff Completed per policy Notes Mental Status: alert / awake / arousable Patient Amnestic to Procedure: Yes Nausea / Vomiting: adequately controlled Pain: adequately controlled Airway Patency, RR, SpO2: stable & adequate BP & HR: stable & adequate Hydration State: stable & adequate Anesthetic Complications: no major complications apparent and Pt Satisfied with anesthetic care
--- NOTE | 2022-08-22 17:16 | Anesthesiology Progress Note ---
Date of Service August 22, 2022 Anesthesia Post Procedure Vital Signs Vital Signs: Temp Pulse Pulse Resp BP BP Pulse Ox 08/22/22 17:00 76 16 151/90 H 96 08/22/22 16:45 74 15 151/88 H 96 08/22/22 16:30 79 13 151/96 H 95 08/22/22 16:15 82 13 150/89 H 95 08/22/22 16:00 36.4 C L 86 15 154/92 H 96 08/22/22 15:50 84 12 157/93 H 95 08/22/22 15:40 81 12 156/91 H 96 08/22/22 15:30 82 15 163/99 H 100 08/22/22 15:20 67 14 140/80 99 08/22/22 15:13 36.6 C 68 16 127/79 99 08/22/22 10:39 36.6 C 82 20 160/100 H 178/111 H 99 O2 Del Method O2 Flow Rate 08/22/22 17:00 Room Air 08/22/22 16:45 Room Air 08/22/22 16:30 Room Air 08/22/22 16:15 Room Air 08/22/22 16:00 Room Air 08/22/22 15:50 Room Air 08/22/22 15:40 Room Air 08/22/22 15:30 Oxymask 4 08/22/22 15:20 Oxymask 9 08/22/22 15:13 Oxymask 9 08/22/22 10:39 Room Air Pain Intensity Right Knee: Pain Intensity: 7 Transfer of Care Handoff Completed per policy Notes Mental Status: alert / awake / arousable and participated in evaluation Nausea / Vomiting: adequately controlled Pain: adequately controlled Airway Patency, RR, SpO2: stable & adequate BP & HR: stable & adequate Hydration State: stable & adequate Anesthetic Complications: no major complications apparent and Pt Satisfied with anesthetic care
[2022-08-22] MEDS ORDERED: NALOXONE HCL 0.4 MG/1 ML VIAL/CARP IV PRN (17:49)
[2022-08-22] MEDS ORDERED: SODIUM CHLORIDE 0.9% 1000ML 1,000 ML IV SCH (17:49)
[2022-08-22] MEDS ORDERED: MAGNESIUM HYDROXIDE SUSP 30 ML UDC PO PRN (17:49)
[2022-08-22] MEDS ORDERED: NITROGLYCERIN SL 0.4 MG/TAB TAB SL PRN (17:49)
[2022-08-22] MEDS ORDERED: ALBUTEROL HFA 8 GM INHALER INH PRN (17:49)
[2022-08-22] MEDS ORDERED: METOCLOPRAMIDE HCL INJ 5 MG/ML 2 ML VIAL IV PRN (17:49)
[2022-08-22] MEDS ORDERED: bisacodyL 10 MG SUPP PR PRN (17:49)
[2022-08-22] MEDS: HYDROmorphone INJ 0.5 MG/0.5 ML SYR IV PRN ×2 (18:03→22:05)
[2022-08-22] MEDS: oxyCODONE HCL IR 5 MG TAB (IMMEDIATE RELEASE) PO PRN (19:27)
[2022-08-22] MEDS ORDERED: SENNA 8.6 MG TAB PO SCH (21:00)
[2022-08-22] MEDS: ceFAZolin 2000MG 2,000 MG/15 ML SYR IV SCH (21:09)
[2022-08-22] MEDS: ASPIRIN 81 MG ECTAB PO SCH (21:10)
[2022-08-22] MEDS: ACETAMINOPHEN 500 MG TAB PO SCH (21:10)
[2022-08-22] MEDS: DOCUSATE SODIUM 100 MG CAP PO SCH (21:10)
[2022-08-23] MEDS: oxyCODONE HCL IR 5 MG TAB (IMMEDIATE RELEASE) PO PRN ×2 (02:59→08:56)
[2022-08-23] MEDS: ACETAMINOPHEN 500 MG TAB PO SCH (05:31)
[2022-08-23] MEDS: ceFAZolin 2000MG 2,000 MG/15 ML SYR IV SCH (06:10)
--- NOTE | 2022-08-23 07:01 | Orthopedic Progress Note ---
Date of Service August 23, 2022 Assessment & Plan (1) Status post revision of total replacement of right knee: Overall he is doing fairly well. Is not having too much pain in the right knee. He will be seen by physical therapy today for ambulation and range of motion exercises. He is on aspirin for DVT prophylaxis. He can be discharged home later today. He will follow-up with orthopedics in 2 weeks. Pippa Bell was seen and examined at bedside this morning. Overall he is doing fairly well. He is not having too much pain in the right knee. He has been up and ambulating in the hallways. He has no complaints.. Review of Systems All systems reviewed & are unremarkable except as noted in HPI & below. Physical Exam On physical examination of the right knee, the dressing is clean and dry. His leg is out full extension. He has active dorsiflexion plantarflexion of his right ankle.. Results & Data Results & Data Laboratory Results . Diagnostic Findings Postoperative x-rays of the right knee show the prosthesis to be in anatomic alignment without any evidence of fracture, screws, or loosening. PG Care Time/CCT Total # of Minutes Spent Total Time Spent with Patient: Total time spent is greater than 50% in coordination of care (as documented) at patient's floor/unit and/or counseling patient: Coding Level of Care Code 06416 Post Operative Follow-Up Diagnoses Status post revision of total replacement of right knee Z96.651
--- NOTE | 2022-08-23 07:02 | Discharge Summary ---
Date of Service August 23, 2022 Principal Diagnosis Same as "Discharge Diagnosis" noted below under Discharge Instructions. Discharge Exam On physical examination of the right knee, the dressing is clean and dry. His leg is out full extension. He has active dorsiflexion plantarflexion of his right ankle.. Discharge Data Procedures Performed Operation Date: 08/22/22 12:20 Actual Procedures p Partial Revision Right Total Knee Arthroplasty(Right) - Joshua Andrew DO Ordered Studies 08/22/22 05:00 US - OR guided needle placemen Routine Hospital Course (1) Status post revision of total replacement of right knee: On August 22, 2022 Ray arrived at [facility] and underwent a revision right knee replacement without complication. He had a general anesthetic. Postoperatively he was started on aspirin for DVT prophylaxis and transferred to the general orthopedic floors. His hospital course was uneventful. On postop day #1, his vital signs were stable and his pain was well controlled. He was able to participate well with physical therapy doing ambulation and range of motion exercises. He was then discharged home. He will follow with orthopedics in 2 weeks. PG Care Time/CCT Total # of Minutes Spent Total Time Spent with Patient: Total time spent is greater than 50% in coordination of care (as documented) at patient's floor/unit and/or counseling patient: Discharge Plan Discharge Items Patient Disposition: Home - Home Health Services Reason For Visit: Painful Right Total Knee Replacement Discharge Diagnosis: Right knee replacement Activity: Per Instructions section Non-emergency contact: Surgeon Call non-emergency contact if: your wound has increased redness and your wound has increased drainage Follow-up/Referrals: Leonard Nicolas CRNP [Primary Care Provider] - Diet: Regular Addtl Attending Provider Instructions: Activity and Therapy Recommendations: * If you are using [facility] then therapy will be provided at your home until they feel you have accomplished all of your goals. * If you are using [facility] then Physical Therapy will be provided until they feel you are ready to start Outpatient Physical Therapy. * If you are not using home therapy then Outpatient Physical Therapy should start about 3-5 days from your day of surgery. Therapy will last about 6-10 weeks * It is important not to put a pillow under your knee when you are relaxing or sleeping. It is just as important to make sure you are getting your knee perfectly straight as it is to regain your knee bend. * You were shown a series of exercises in the hospital. Do these exercises three times each day including the exercises you were shown in physical therapy. * Get up and walk several times each day. For the first four weeks, try not to stand or walk for more than one hour at a time. If you do stand or walk for more than one hour, you will not hurt anything, but your leg will likely swell. * As you feel comfortable, you may change from the walker or crutches to a cane and then to independent walking. Medications: * Narcotic You will likely be sent home from the hospital with a prescription for the narcotic pain medication that worked best throughout your stay. * Aspirin Most patients will be required to take Aspirin 81mg twice a day for 6 weeks after surgery. This is obtained [id number] and a prescription is not necessary. * Other medications may be prescribed for specific circumstances. If you have any questions, please call the office at . * Resume previous home medications unless otherwise instructed TEDs/Elastic Stockings: The white elastic stockings help limit swelling and prevent blood clots from forming in your legs.~ The more you wear them, the more they work. Wear them for six weeks. Dressing Care: The dressing can be changed after physical therapy on postop day #1. Daily dry dressing changes for a few days, especially if the incision is still draining some. If the incision is not draining then you may leave the asmita open to air. If there is a little bit of drainage or if the asmita are getting stuck on your clothing then cover the incision with a dry dressing. The asmita will be removed at your 2 week follow-up appointment. Showering: You may shower 5 days from the day of surgery as long as the incision is no longer draining. You may shower with the asmita exposed. Let soapy water run over the asmita and pat them dry. Do not scrub or soak the incision. Things To Watch For: * Drainage from the incision site that occurs more than one week after your surgery. * Increased redness at the incision site. * Fever above 102 degrees Fahrenheit. * Unusual chest pain or shortness of breath. * Call [facility] at with any of the above problems Follow-Up Visit: Follow-up with Dr. Andrew's PA (Joshua Zelaya) 2-3 weeks after your day of surgery. He will remove your asmita and answer any questions. If you have any additional questions or concerns, Dr Andrew is usually in the office at the same time and will be available An appointment was probably scheduled when you signed-up for surgery in the office. If you have any questions call Office Instructions: More detailed instructions as well as Frequently Asked Questions were provided in a folder by our office when you signed-up for surgery. Please review these instructions when you get home. If you have any further questions or concerns, please feel free to call the office at [phone] Pending Studies at Discharge: No Stand-Alone Forms: My [facility] Medications and DC Order Prescriptions: New oxycodone-acetaminophen 5-325 mg tablet 1 tab PO Q6H PRN (Reason: pain) Qty: 30 0RF Continued albuterol sulfate [Ventolin HFA] 90 mcg/actuation HFA aerosol inhaler 2 puffs INH Q6H PRN (Reason: shortness of breath or wheezing) Qty: 6.7 2RF ezetimibe [Zetia] 10 mg tablet 10 mg PO QAM Qty: 90 1RF hydrocodone-acetaminophen 5-325 mg tablet 1 tab PO BID PRN (Reason: pain) Qty: 20 0RF tramadol 50 mg tablet 50 mg PO Q8H PRN (Reason: pain) Qty: 30 0RF nitroglycerin [Nitrostat] 0.4 mg Tablet, Sublingual 0.4 mg Sublingual UD PRN (Reason: Chest Pain ) lisinopril 5 mg tablet 5 mg PO QAM Repatha Syringe 140 mg/mL syringe 140 mg subcut Q14D Rx Instructions: Subcutaneously inject 140 mg (1 ml) every 2 weeks; meloxicam 15 mg Tablet 15 mg PO QAM Changed aspirin [Vandana Low Dose Aspirin] 81 mg tablet,delayed release (DR/EC) 81 mg PO BID 42 Days Qty: 90 3RF Admission Data Admit Date/Time: 08/22/22 15:14 Attending Provider: Joshua Andrew Admit Provider: Joshua Andrew Primary Care Provider: Leonard Nicolas
[2022-08-23] MEDS ORDERED: dexAMETHasone 4 MG TAB PO SCH (08:00)
[2022-08-23] MEDS: ASPIRIN 81 MG ECTAB PO SCH (08:51)
[2022-08-23] MEDS: DOCUSATE SODIUM 100 MG CAP PO SCH (08:51)
[2022-08-23] MEDS ORDERED: EZETIMIBE 10 MG TABLET PO SCH (09:00)
[2022-08-23] MEDS ORDERED: lisinopril 5 MG TAB PO SCH (09:00)
[2022-08-23] MEDS ORDERED: MULTIVITAMIN TAB PO SCH (09:00)
== END 2022-08-23 12:09 | disposition home health service (06) | DRG 468 ==
LOC: 3N 10:03 → ASU 10:03 → OBSVTOIN 15:14

== ENCOUNTER 2023-01-05 10:27 | Inpatient (IN) ==
--- NOTE | 2023-01-04 10:22 | Anesthesiology Consultation ---
Date of Service January 04, 2023 Assessment & Plan (1) Encounter for pre-operative examination: - Covid screening: Per streetcar motorman on 01/04/23: No known infectious disease contacts or current infectious disease symptoms in past 10 days. No COVID positive test result in the past 90 days noted. -Cardiology office visit (08/04/22): Patient seen prior to Right TKA revision performed 08/2022 at [facility] > "Based on his functional status without angina pectoris, normal EKG tracing, known coronary anatomy, widely patent stents on cardiac catheterization 2018, and the fact that his left main coronary artery disease has regressed --patient is a low to intermediate cardiac risk for his upcoming elective orthopedic procedure. Patient is aware that he should take Aspirin 81 mg daily including the morning of surgery with sips of water. There is no need for further ischemic workup at this time." - S/P Right TKA (09/03/21): LMA igel#4 + PNB at [facility] (pt concern with neuraxial anesthesia given hx of significant pain/paresthesia with cortisone injections in past per 08/2021 anesthesia consult). SAB vs GA was discussed with patient at 08/03/22 PAT visit, patient indicated he wished to have Revision TKA done under GA > Revision TKA with removal of hardware and conversion to PRK femoral implant (08/22/22): LMA#4.0, atraumatic + PNB at [facility] Chart Review Chart Review: Acceptable Risk for Surgery and Patient NOT seen in Pre Admission Testing History Surgery Operation Date: 01/05/23 13:00 Proposed Procedures p Open Irrigation and Debridement, Poly Exchange Right Total Knee Arthroplasty - Joshua Andrew DO Height/Weight Height: 5 ft 7 in Weight: 73.482 kg Allergies Allergy/AdvReac Type Severity Reaction Status Date / Time ibuprofen [From Motrin] Allergy Intermediate GI Upset, Verified 01/04/23 09:34 diffuse rash Medications Home Medications Medication Instructions Recorded Confirmed Last Taken nitroglycerin 0.4 mg sublingual 0.4 mg sublingual UD PRN Chest Pain 03/19/18 01/04/23 Unknown tablet (Nitrostat) albuterol sulfate 90 mcg/actuation 2 puffs inhalation Q6H PRN 11/13/19 01/04/23 08/18/22 14:00 aerosol inhaler (Ventolin HFA) shortness of breath or wheezing #6.7 grams meloxicam 15 mg tablet 15 mg PO QAM 06/28/22 01/04/23 08/21/22 07:00 evolocumab 140 mg/mL subcutaneous 140 mg subcut Q14D 07/29/22 01/04/23 08/14/22 10:00 syringe (Repatha Syringe) lisinopril 5 mg tablet 5 mg PO QAM 07/29/22 01/04/23 08/21/22 07:00 ezetimibe 10 mg tablet (Zetia) 10 mg PO QAM #90 tabs 09/12/22 01/04/23 Unknown tramadol 50 mg tablet 50 mg PO Q8H PRN pain #30 tabs 12/07/22 01/04/23 Unknown aspirin 81 mg tablet,delayed 81 mg PO QAM 01/04/23 01/04/23 Unknown release (Vandana Low Dose Aspirin) metoprolol succinate 50 mg 50 mg PO QAM 01/04/23 01/04/23 Unknown tablet,extended release 24 hr Past Medical History Medical History Anxiety and depression Bipolar disorder Chronic back pain Chronic obstructive pulmonary disease, unspecified Closed compression fracture of L3 vertebra 2018 (no surgical intervention > conservative management) Coronary artery disease First diagonal and RCA PCI (2012, 2014) Cardiac Cath 2017 ([employer] of distal circumflex) Degenerative disc disease Dyslipidemia (high LDL; low HDL) Hearing difficulty Heart attack Total x3 () Follows with [facility] cardiology History of COVID-19 06/15/21- nausea, tested negative at [facility] Hx of rheumatic fever As child Hypertension Post traumatic stress disorder Restless legs syndrome Past Family History Family History Other Adopted Family history not known due to adoption Past Surgical History Surgical History History of arthroscopy Right knee PMM, chondroplasty (02/04/21): LMA#4 at [facility]. No issues per anesthesia progress note. History of back surgery Lumbar decompression History of cardiac cath 2008 ([facility]) First diagonal and RCA PCI (2012, 2014) Cardiac Cath 03/2018 [employer] of distal circumflex ([facility]); f/u stew vasques---pt states total of 2 stents History of cholecystectomy History of cochlear implant right osteointegrated implant History of colonoscopy History of heart artery stent First diagonal and RCA PCI (2012, 2014) History of laminectomy L4-S1 History of total right knee replacement Right TKA (09/03/21): LMA igel#4 + PNB at [facility] (pt concern with neuraxial anesthesia given hx of significant pain/paresthesia with cortisone injections in past per 08/2021 anesthesia consult) Status post revision of total replacement of right knee Revision TKA with removal of hardware and conversion to PRK femoral implant (08/22/22): LMA#4.0, atraumatic + PNB at [facility] Social History Smoking Status: Current every day smoker tobacco type: cigarettes Smoking cigarettes per day: 10 cigs/day (advised on policy) Do You Dip or Chew Tobacco: No Hx Alcohol Use: No Alcohol type: beer alcohol intake frequency: other Hx Substance Use: Yes (smokes marijuana (advised on policy)) substance use type: marijuana Substance Use Type Other:: smokes few times per month, aware of pre-op interval Last Used Substance: Days (ago) Last Used Substance Other:: 2 days ago used marijuana Lab Results Anesthesia Preop Results Results Anesthesia Widget: WBC 7.06 K/ul (4.8-10.8) 12/28/22 Hgb 14.8 g/dl (14.0-18.0) 12/28/22 Hct 42.7 % (42.0-52.0) 12/28/22 Plt 243 K/uL (130-400) 12/28/22 Na 136 mmol/L (136-145) 12/28/22 K 4.5 mmol/L (3.5-5.1) 12/28/22 Cl 104 mmol/L (98-107) 12/28/22 CO2 26 mmol/L (21-32) 12/28/22 BUN 14 mg/dl (6-23) 12/28/22 Creat 1.46 mg/dl (0.6-1.4) H 12/28/22 Glucose Level 82 mg/dl (70-99(Fasting)) 12/28/22 PT 10.9 Seconds (9.0-12.0) 01/03/23 PTT 30.9 Seconds (21.0-31.0) 01/03/23 INR 1.0 (0.9-1.1) 01/03/23 Blood Type O Positive 01/03/23 Antibody Screen NEGATIVE 01/03/23 Testing Electrocardiogram Date: 08/03/22 Findings: + NSR @ (83) Cardiac Catheterization Date: 03/19/18 Summary: Severe single-vessel coronary artery disease- Chronic total occlusion of distal circumflex; left PLB fills via left to left collaterals. 40-50% mid LAD. Widely patent diagonal, R-PAV stents Normal intracardiac filling pressure Recommendations: Maximize antianginal therapy. Continued ASCVD risk factor modification. If refractory symptoms in the future could consider FFR with possible PCI to mid LAD. PCI of LAD would likely involve long, small-diameter stent across bifurcation of first diagonal. Other Testing US AAA screening Date: 09/18/2020 IMPRESSION: Mildly ectatic distal abdominal aorta without evidence for aneurysm. This is similar to the prior study Aorto-iliac duplex Date: 08/26/2020 <49% stenosis in the aorto-iliac system Ectatic proximal abdominal aorta (2.5 cm) Compared to 01/16/2019, there are no significant changes CT lung Date: 01/28/22 No new or suspicious pulmonary nodules. No focal lung consolidations to suggest pneumonia. Emphysema. Moderate coronary artery calcifications are again noted.
[~2023-01-05 10:27] MED LIST changes: -BUPIVACAINE 0.5 % 5 MG/1 ML PF 10ML VIAL ONE; -Ketorolac (*for OR use only*) 30 MG, dexAMETHasone 4 MG, KETAMINE HCL (**OR use only) 1... INFIL SCH; -ROPIVACAINE 0.5% 5 MG/ML 30 ML VIAL ONE; -ceFAZolin 2000MG 2,000 MG/15 ML SYR IV SCH
--- NOTE | 2023-01-05 11:32 | History & Physical Bridge Note ---
Date of Service January 05, 2023 History & Physical Bridge Note I have examined the patient, reviewed the History & Physical and in the interval since the performance of the History & Physical I have noted the following changes of clinical significance: no changes noted
[2023-01-05] MEDS ORDERED: ONDANSETRON INJ 2 MG/ML 2 ML VIAL ONE (12:15)
[2023-01-05] MEDS ORDERED: fentaNYL citrate PF 100 MCG/2 ML VIAL ONE ×2 (12:15→13:08)
[2023-01-05] MEDS ORDERED: LIDOCAINE 2% 2 ML VIAL/AMP(20MG/ML) INFIL ONE (12:15)
[2023-01-05] MEDS ORDERED: MIDAZOLAM HCL 1 MG/ML 2ML VIAL ONE (12:15)
[2023-01-05] MEDS ORDERED: PROPOFOL IV EMULSION 10 MG/ML 20 ML VIAL IV ONE (12:15)
[2023-01-05] MEDS ORDERED: ROPIVACAINE 0.5% 5 MG/ML 30 ML VIAL ONE (12:16)
[2023-01-05] MEDS ORDERED: PROMETHAZINE HCL 6.25 MG in SODIUM CHLORIDE 0.9% 50 ML IV PRN (12:21)
[2023-01-05] MEDS ORDERED: ONDANSETRON INJ 2 MG/ML 2 ML VIAL IV PRN (12:21)
[2023-01-05] MEDS ORDERED: LABETALOL HCL IV 5 MG/ML 20ML IV PRN (12:21)
[2023-01-05] MEDS ORDERED: ATROPINE SULFATE 0.1 MG/ML 10ML SYR IV PRN (12:21)
[2023-01-05] MEDS: ceFAZolin 2000MG 2,000 MG/15 ML SYR IV SCH ×2 (12:30→13:01)
[2023-01-05] MEDS ORDERED: DAKIN'S SOLN 0.5% FULL STRENGTH 473ML BTL EXT ONE (12:44)
--- NOTE | 2023-01-05 13:52 | Operative Report ---
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 A year after the procedure he was having pain and instability of his knee. He did not show any signs of infection. He underwent a revision of his knee replacement on August 22, 2022 to a more constrained liner with a femoral stem. Postoperatively he initially did great. He then began having some swelling of his knee. His knee would swell worse throughout the day and then go down by morning. His knee never really looked infected. There was never any redness. He never had any fevers. X-rays always look good and showed well fixed components. I then sent him for blood work and it showed a sed rate of 28 and a CRP of 2.4. These are mildly elevated. His white count was normal. He was having some discomfort in the knee but he was able to walk into the off ice without much difficulty. I then aspirated the knee and send it to lab for cultures. The cultures were negative and showed no growth. The fluid did not appear to be infected. I then sent the fluid to [facility] for testing. It came back positive for alpha defense and and leukocyte esterase. He was still dealing with some discomfort in the knee. He was about 4 months out from the index procedure, however, he had well cemented stemmed femoral and tibial components and there would be significant morbidity to remove the components from his knee. I do not see any signs of staph and I talked to the patient extensively about the risks, benefits, and failure rates of a DAIR procedure versus a two-stage revision of his knee. He elected to try the DAIR procedure first. Description of Procedure On January 05, 2023 Ray arrived at [facility] for the above procedure. He was seen in the preoperative holding area and the operative extremity identified and signed. He was not given a preoperative antibiotic. He was taken back to the operating room and laid on the table in supine position. He was put under general anesthesia. The right knee was prepped and draped in sterile fashion. A timeout was done. The patient and the operative extremity was properly identified. The previous midline incision was opened back up. Dissection was taken down to the extensor mechanism and a mid vastus arthrotomy was used. There was a small to moderate amount of synovial fluid that came out of the knee. It was watery and a little yellowish in color. It looked almost like standard synovial fluid. It did not appear to be infected. There was no purulent fluid. A swab culture was taken. The medial retinaculum was then released. Significant time was spent removing all synovium from the medial and lateral gutters. For soft tissue samples were also sent to pathology. The polyethylene insert was then removed. Time was spent debriding soft tissue in the posterior aspect of the knee. Once I was happy with the complete debridement of all synovial soft tissue, I felt comfortable proceeding with a irrigation. The implants were then irrigated with a 3-minute Betadine lavage.The components were then scrubbed vigorously with a Betadine scrub brush. The knee was then irrigated with 3 L normal saline solution with bacitracin. A 3-minute full strength Dakin's solution lavage was then done. The complements were then scrubbed once again with a Betadine scrub brush. The knee was then irrigated with another 3 L of normal saline solution by pulse lavage.An additional 3 L normal saline solution were used to irrigate the knee. A total of 9 L was irrigated through the knee. The drapes were then changed. Suction tips and Bovie tips were changed. New gloves were put on and a clean table was brought in. A 14 mm polyethylene insert was then trialed and felt to be a good fit. This was 2 mm larger than the previous insert. The final polyethylene insert was then snapped into place and the screw was locked. The knee was brought through full range of motion and felt to be stable. Tourniquet was deflated and hemostasis was obtained. There was not much bleeding. The extensor mechanism was closed with #1 Vicryl. Skin was closed with 2-0 Vicryl, 3 oh VueLock, and asmita. He was then placed in a soft compressive dressing. He was then extubated and transferred to [facility]. He was taken to the postanesthesia care unit in stable condition. He tolerated the procedure well. Joshua Zelaya PA-C, was present for the entire procedure. He was critical for patient positioning, prepping, draping, retraction exposure, wound closure and application of sterile dressing. I attest to the content of the Intraoperative Record and any orders documented therein. Any exceptions are noted below.
[2023-01-05] MEDS: HYDROmorphone INJ 1 MG/ML SYRINGE IV PRN ×4 (14:37→14:52)
--- NOTE | 2023-01-05 14:59 | XRay Report ---
XR knee RT 1 or 2V routine CLINICAL HISTORY: Postoperative evaluation. COMPARISON: Knee radiographs October 18, 2022. FINDINGS: Total right knee arthroplasty is noted. The hardware is intact. There is no periprosthetic fracture. There are no unexpected radiopaque foreign bodies. There are skin asmita. IMPRESSION: Expected findings following total right knee arthroplasty. ACT 112: Negative or not required by law. Electronically signed by: Javid Gerardo M.D. 01/05/2023 2:58 PM
--- NOTE | 2023-01-05 15:04 | Anesthesiology Progress Note ---
Date of Service January 05, 2023 Anesthesia Post Procedure Vital Signs Vital Signs: Temp Pulse Resp BP Pulse Ox O2 Del Method O2 Flow Rate 01/05/23 14:55 72 12 152/86 H 95 Room Air 01/05/23 14:45 36.5 C 76 13 153/87 H 97 Room Air 01/05/23 14:35 74 18 161/96 H 100 Room Air 01/05/23 14:25 82 18 165/101 H 100 Oxymask 4 01/05/23 14:15 36.7 C 65 20 147/93 H 100 Oxymask 6 01/05/23 10:49 37.2 C 95 H 18 172/100 H 100 Room Air Pain Intensity Right Knee: Pain Intensity: 4 Transfer of Care Handoff Completed per policy Notes Mental Status: alert / awake / arousable Patient Amnestic to Procedure: Yes Nausea / Vomiting: adequately controlled Pain: adequately controlled Airway Patency, RR, SpO2: stable & adequate BP & HR: stable & adequate Hydration State: stable & adequate Anesthetic Complications: no major complications apparent
[2023-01-05] MEDS ORDERED: ALBUTEROL HFA 8 GM INHALER INH PRN (16:28)
[2023-01-05] MEDS ORDERED: NITROGLYCERIN SL 0.4 MG/TAB TAB SL PRN (16:28)
[2023-01-05] MEDS ORDERED: HYDROmorphone INJ 0.5 MG/0.5 ML SYR IV PRN (16:28)
[2023-01-05] MEDS ORDERED: NALOXONE HCL 0.4 MG/1 ML VIAL/CARP IV PRN (16:28)
[2023-01-05] MEDS ORDERED: bisacodyL 10 MG SUPP PR PRN (16:28)
[2023-01-05] MEDS ORDERED: VANCOMYCIN CONSULT ACTIVE PRN (16:28)
[2023-01-05] MEDS ORDERED: MAGNESIUM HYDROXIDE SUSP 30 ML UDC PO PRN (16:28)
[2023-01-05] MEDS ORDERED: METOCLOPRAMIDE HCL INJ 5 MG/ML 2 ML VIAL IV PRN (16:28)
[2023-01-05] MEDS ORDERED: SODIUM CHLORIDE 0.9% 1000ML 1,000 ML IV SCH (16:28)
--- NOTE | 2023-01-05 16:42 | Pharmacy Report ---
Pharmacy PK ABX Note - Date of Service January 05, 2023 - Assessment and Plan Assessment 67 year old M receiving IV Vancomycin for empiric treatment of periprosthetic join infection of right knee, s/p open I & D, poly exchange of right TKA . Knee cultures pending. Day # 1 of antimicrobial therapy. Plan Vancomycin * Loading dose: 1500 mg IV x 1 * Maintenance dose: 1000 mg IV every 24 hours * Regimen is predicted to achieve target AUC/IDALMIS of 400-600 mg/L.hr * Level to be ordered if duration of therapy exceeds 48 hours empiric therapy Pharmacy will continue to follow and will adjust dose/frequency as necessary. Thank you. Pharmacy has transitioned to AUC monitoring for vancomycin. AUC/IDALMIS is the preferred PK/PD target and is associated with decreased risk of nephrotoxicity compared to traditional trough targets.
[2023-01-05] MEDS: KETOROLAC TROMETHAMINE 15 MG/ML VIAL IV SCH ×2 (16:52→22:21)
[2023-01-05] MEDS ORDERED: VANCOMYCIN HCL 1,500 MG in SODIUM CHLORIDE 0.9% 500 ML IV ONE (17:00)
[2023-01-05 17:28] LABS: Calcium 8.9 mg/dl (8.6-10.3); Creatinine Clr Calc Pharmacy 44.6 ml/min; Est GFR (African American) 57.3 ml/min; Est GFR (Non-African American) 49.5 ml/min; Potassium 4.8 mmol/L (3.5-5.1)
[2023-01-05] MEDS ORDERED: METOPROLOL SUCC 50MG EXT REL TAB PO STA (17:33)
[2023-01-05 17:54] LABS: Hematocrit (blood only) 44.3 % (42.0-52.0); Hemoglobin 15.2 g/dl (14.0-18.0); Mean Corpuscular Hemoglobin 29.6 pg (25.0-34.0); Mean Corpuscular Hgb Conc 34.3 g/dL (32.0-36.0); Mean Corpuscular Volume 86.2 fL (80.0-100.0); Mean Platelet Volume 8.8 fL (9.4-12.4); Platelet Count 216 K/uL (130-400); RDW Coefficient of Variation 13.8 % (11.5-14.5); RDW Standard Deviation 43.8 fL (36.4-46.3); Red Blood Count 5.14 M/uL (4.70-6.10); White Blood Count 8.37 K/ul (4.8-10.8)
[2023-01-05 18:26] LABS: Basophils # (auto) 0.03 K/uL (0-0.2); Basophils % (auto) 0.4 %; Eosinophils # (auto) 0.02 K/uL (0-0.50); Eosinophils % (auto) 0.2 %; Immature Granulocytes # (auto) 0.05 K/uL (0.01-0.20); Immature Granulocytes % (auto) 0.6 %; Lymphocytes # (auto) 0.39 K/uL (1.2-3.4); Lymphocytes % (auto) 4.7 %; Monocytes # (auto) 0.06 K/uL (0.11-0.59); Monocytes % (auto) 0.7 %; Neutrophils # (auto) 7.82 K/uL (1.40-6.50); Neutrophils % (auto) 93.4 %
--- NOTE | 2023-01-05 19:18 | Hospitalist Consultation ---
Date of Consultation January 05, 2023 Assessment & Plan (1) Infected prosthetic knee joint: Patient with negative cultures from right knee aspiration on 12/28 performed by orthopedics, but the Synovasure test was positive for alpha defense and He has not had any fevers or chills, no leukocytosis, no systemic symptoms. Only symptom was knee effusion and pain, no erythema. CRP was elevated at 2, procalcitonin is negative Now status post Open Irrigation and Debridement, Poly Exchange of Right Total Knee Arthroplasty(Right) by Dr. Andrew on 01/05 Knee cultures and blood cultures drawn and pending Infectious disease consult placed by orthopedics Continue empiric vancomycin for now, no gram-negative coverage needed-patient is not a diabetic or high risk for gram-negative organisms Pain control, postop management as per orthopedics Follow CBC, CMP, CRP (2) Benign essential hypertension: Blood pressures elevated postoperatively-the patient did not take his metoprolol or lisinopril this morning like he usually does Gave home metoprolol this evening but hold lisinopril this evening for now -Continue home metoprolol and lisinopril in the morning -Pain control will likely improve the blood pressure as well -Continue to monitor and can give IV hydralazine if systolic blood pressure greater than 180 -Follow BMP (3) Chronic obstructive pulmonary disease, unspecified: No acute issues Albuterol inhaler as needed Counseled on smoking cessation (4) Current smoker: counseled on smoking cessation and importance in wound healing He declines a nicotine patch at this time he is contemplating quitting (5) Coronary artery disease: CAD s/p RCA and 1st Diagonal Stents Stable, no chest pain Continue home aspirin but this has been increased to twice daily for DVT prophylaxis as per orthopedics Continue home Zetia, he receives Repatha injections every 2 weeks, and continue home metoprolol, lisinopril (6) Depression: Stable, not on medication anymore (7) Dyslipidemia (high LDL; low HDL): Zetia and Repatha (8) CKD (chronic kidney disease) stage 3, GFR 30-59 ml/min: Creatinine mildly elevated over baseline at 1.3-1.4 Okay to continue lisinopril as he is hypertensive Follow BMP Avoid nephrotoxins, renally dose meds when appropriate Plan DVT prophylaxis-SCDs, aspirin 81 Mg p.o. twice daily Disposition-continued stay medical/surgical unit. Hospitalist service will follow along History of Present Illness Reason for Consultation: Infected total knee arthroplasty Requesting Physician: Dr. Andrew Attending Physician: Joshua Anderw, History of Present Illness This patient is a 67-year-old male with a history of HTN, CAD s/p RCA and 1st Diagonal Stents, Dyslipidemia, Anxiety/Depression, Tobacco Use, Osteoarthritis s/p Right TKA, RLS, and COPD who was admitted for postoperative management after an Open Irrigation and Debridement, Poly Exchange of Right Total Knee Arthroplasty(Right) today with Dr. Andrew. The indication for surgery was infected periprosthetic knee joint. He had aspiration and cultures which did not grow any bacteria recently with Dr. Andrew, but the Synovasurecame back positive for alpha defense and indicating infection. He has been placed on IV vancomycin and an infectious disease consultation is pending. The patient has been having elevated blood pressures but had not received his home blood pressure pills prior to surgery today. He is having some pain in the right knee and is thinking on asking for pain medicine. He denies lightheadedness or headache, no chest pains or shortness of breath, no nausea or vomiting or abdominal pain. His last bowel movement was this morning before surgery. He is voiding well since surgery. Denies any other complaints. Allergies Allergy/AdvReac Type Severity Reaction Status Date / Time ibuprofen [From Motrin] Allergy Intermediate GI Upset, Verified 01/04/23 09:34 diffuse rash Home Medications Medication Instructions Recorded Confirmed Type nitroglycerin 0.4 mg sublingual 0.4 mg sublingual UD PRN Chest Pain 03/19/18 01/05/23 History tablet (Nitrostat) albuterol sulfate 90 mcg/actuation 2 puffs inhalation Q6H PRN 11/13/19 01/05/23 Rx aerosol inhaler (Ventolin HFA) shortness of breath or wheezing #6.7 grams meloxicam 15 mg tablet 15 mg PO QAM 06/28/22 01/05/23 History evolocumab 140 mg/mL subcutaneous 140 mg subcut Q14D 07/29/22 01/05/23 History syringe (Repatha Syringe) lisinopril 5 mg tablet 5 mg PO QAM 07/29/22 01/05/23 History ezetimibe 10 mg tablet (Zetia) 10 mg PO QAM #90 tabs 09/12/22 01/05/23 Rx tramadol 50 mg tablet 50 mg PO Q8H PRN pain #30 tabs 12/07/22 01/05/23 Rx aspirin 81 mg tablet,delayed 81 mg PO QAM 01/04/23 01/05/23 History release (Vandana Low Dose Aspirin) metoprolol succinate 50 mg 50 mg PO QAM 01/04/23 01/05/23 History tablet,extended release 24 hr Patient History Medical History (Updated 01/05/23 @ 19:59 by Kassi Phelps MD) Anxiety and depression Bipolar disorder Chronic back pain Chronic obstructive pulmonary disease, unspecified CKD (chronic kidney disease) stage 3, GFR 30-59 ml/min Closed compression fracture of L3 vertebra 2018 (no surgical intervention > conservative management) Coronary artery disease First diagonal and RCA PCI (2012, 2014) 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 No issues per anesthesia progress note. 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/2018 MACHINE BUFFER of distal circumflex ([facility]); f/u stew vasques---pt states total of 2 stents History of cholecystectomy History of cochlear implant right osteointegrated implant History of colonoscopy History of heart artery stent First diagonal and RCA PCI (2012, 2014) History of laminectomy L4-S1 History of total right knee replacement Right TKA (09/03/21): LMA igel#4 + PNB at [facility] (pt concern with neuraxial anesthesia given hx of significant pain/paresthesia with cortisone injections in past per 08/2021 anesthesia consult) Status post revision of total replacement of right knee Revision TKA with removal of hardware and conversion to PRK femoral implant (08/22/22): LMA#4.0, atraumatic + PNB at [facility] Family History Other Adopted Family history not known due to adoption Social History Smoking Status: Current every day smoker Tobacco Type: Cigarettes packs per day: 0.5; Cigarettes Per Day: 10 cigs/day (advised on policy); Second Hand Exposure: No; Do You Dip or Chew Tobacco: No; Tobacco Cessation Education Requested by Patient: No Hx Alcohol Use: No Hx Substance Use: Yes (smokes marijuana (advised on policy)) Last Used Substance: Days (ago) Last Used Substance Other:: 2 days ago used marijuana Substance Use Type Other:: smokes few times per month, aware of pre-op interval Preferred Language: Amharic Communication Ability: Effective Visual Impairment: No Limitations Hearing Ability: Use of Hearing Aid Food Assembler Required: No Beliefs That Will Affect Care: None marital status: Current Living Situation: Spouse and Family Current Living Situation Comment: Lives with , daughter and 2 grandkids current occupational status: retired How many Children do You have: 4 Other Information That Helps Us Care for You: No Feels Safe at Home: Yes Safety Concerns: Feels Safe At This Time Childhood Exposure to Second-Hand Smoke: Yes Diet: regular caffeine: Yes during the past year weight has: remained stable Dental Care, Regularly: No Physical Activity Frequency: Daily Seatbelt Use: always Sunscreen Use: No Assistive Devices: Denture - Upper, Denture - Lower and Glasses Assistive Devices Comment: cochlear implant right ear Review of Systems Review of Systems: All systems reviewed & are unremarkable except as noted in HPI & below Physical Exam Constitutional: WD/WN, vitals as above Eyes: PERRL, conjunctivae normal, anicteric sclerae ENMT: external ear and nose normal, oropharynx normal Neck: trachea midline, no thyromegaly Respiratory: normal respiratory effort, lungs clear to auscultation Cardiovascular: RRR, no murmur, no edema Chest (Breasts): Chest: normal inspection of chest Gastrointestinal (Abdomen): normal bowel sounds, soft, nontender, no hepatosplenomegaly Musculoskeletal: Extremities: + extremities abnormal to inspection (Right lower extremity in dressing and Benito wrap not removed) Skin: no rashes, warm and dry Neurologic: moves all extremities and awake; no focal motor deficits Psychiatric: A+Ox3, euthymic affect Lymphatic: no lymphedema Results & Data Results & Data Vital Signs (Past 12 Hours) Vital Signs Temp Pulse Pulse Pulse Resp BP Pulse Ox 01/05/23 18:31 36.4 C L 70 17 168/89 H 100 01/05/23 18:10 01/05/23 17:31 36.5 C 79 17 169/90 H 99 01/05/23 17:02 36.4 C L 75 17 171/90 H 97 01/05/23 16:30 36.5 C 74 17 168/98 H 98 01/05/23 16:08 74 16 162/84 H 96 01/05/23 15:55 76 14 157/95 H 97 01/05/23 15:40 36.4 C L 73 18 123/81 95 01/05/23 15:25 68 12 149/88 H 95 01/05/23 15:10 76 13 148/83 H 96 01/05/23 14:55 72 12 152/86 H 95 01/05/23 14:45 36.5 C 76 13 153/87 H 97 01/05/23 14:35 74 18 161/96 H 100 01/05/23 14:25 82 18 165/101 H 100 01/05/23 14:15 36.7 C 65 20 147/93 H 100 01/05/23 10:49 37.2 C 95 H 18 172/100 H 100 O2 Del Method O2 Flow Rate 01/05/23 18:31 Room Air 01/05/23 18:10 Room Air 01/05/23 17:31 Room Air 01/05/23 17:02 Room Air 01/05/23 16:30 Room Air 01/05/23 16:08 Room Air 01/05/23 15:55 Room Air 01/05/23 15:40 Room Air 01/05/23 15:25 Room Air 01/05/23 15:10 Room Air 01/05/23 14:55 Room Air 01/05/23 14:45 Room Air 01/05/23 14:35 Room Air 01/05/23 14:25 Oxymask 4 01/05/23 14:15 Oxymask 6 01/05/23 10:49 Room Air Laboratory Results CBC, BMP, procalcitonin reviewed PG Care Time/CCT Total # of Minutes Spent Total Time Spent with Patient: Total time spent is greater than 50% in coordination of care (as documented) at patient's floor/unit and/or counseling patient: Coding Level of Care Code 98261 IN/OBS CONSULT LVL 4,60M Diagnoses Infected prosthetic knee joint T84.59XA; Z96.659 Benign essential hypertension I10 Chronic obstructive pulmonary disease, unspecified J44.9 Current smoker F17.200 Coronary artery disease I25.10 Depression F32.9 Dyslipidemia (high LDL; low HDL) E78.5 CKD (chronic kidney disease) stage 3, GFR 30-59 ml/min N18.30
[2023-01-05] MEDS: oxyCODONE HCL IR 5 MG TAB (IMMEDIATE RELEASE) PO PRN (20:08)
[2023-01-05] MEDS: ASPIRIN 81 MG ECTAB PO SCH (20:08)
[2023-01-05] MEDS: DOCUSATE SODIUM 100 MG CAP PO SCH (20:09)
[2023-01-05] MEDS: SENNA 8.6 MG TAB PO SCH (20:09)
[2023-01-05] MEDS: ACETAMINOPHEN 500 MG TAB PO SCH (22:20)
[2023-01-06] MEDS: oxyCODONE HCL IR 5 MG TAB (IMMEDIATE RELEASE) PO PRN ×2 (01:57→11:13)
[2023-01-06] MEDS: KETOROLAC TROMETHAMINE 15 MG/ML VIAL IV SCH ×4 (05:50→22:04)
[2023-01-06] MEDS: ACETAMINOPHEN 500 MG TAB PO SCH ×3 (05:50→20:49)
[2023-01-06 06:39] LABS: Albumin Globulin Ratio 1.3 (0.9-2); Albumin Level 3.2 gm/dl (3.4-5.0); Bilirubin,Total 0.3 mg/dl (0.2-1.0); C Reactive Protein 0.58 mg/dl (0-0.5); Calcium 8.4 mg/dl (8.6-10.3); Est GFR (African American) 53.3 ml/min; Globulin 2.5 gm/dl (2.5-4.0); Potassium 4.8 mmol/L (3.5-5.1); Total Protein 5.7 gm/dl (6.0-8.3)
--- NOTE | 2023-01-06 07:50 | Hospitalist Progress Note ---
Date of Service January 06, 2023 Assessment & Plan (1) Infected prosthetic knee joint: Plan: Patient with negative cultures from right knee aspiration on 12/28 performed by orthopedics, but the Synovasure test was positive for alpha defense and He has not had any fevers or chills, no leukocytosis, no systemic symptoms. Only symptom was knee effusion and pain, no erythema. CRP was elevated at 2, procalcitonin is negative Now status post Open Irrigation and Debridement, Poly Exchange of Right Total Knee Arthroplasty(Right) by Dr. Andrew on 01/05 Knee cultures and blood cultures drawn and pending Infectious disease consult placed by orthopedics Continue empiric vancomycin for now, no gram-negative coverage needed-patient is not a diabetic or high risk for gram-negative organisms Pain control, postop management as per orthopedics 01/06 - ID consult pending Continues on Vancomycin Cautious use NSAIDs given CKD, Cr not significantly above baseline but will need to monitor. UOP acceptable Continued inpatient stay, therapy evals pending (2) Benign essential hypertension: Plan: Blood pressures elevated postoperatively likely from pain, howeverthe patient did not take his metoprolol or lisinopril this morning like he usually does Gave home metoprolol evening but hold lisinopril this evening for now Lisinopril given this morning, will hold temporarily for AM and monitor BMP Continues metoprolol (3) Chronic obstructive pulmonary disease, unspecified: Plan: No acute issues Albuterol inhaler as needed Counseled on smoking cessation 97% on RA (4) Current smoker: Plan: counseled on smoking cessation and importance in wound healing He declines a nicotine patch at this time he is contemplating quitting (5) Coronary artery disease: Plan: CAD s/p RCA and 1st Diagonal Stents Stable, no chest pain Continue home aspirin but this has been increased to twice daily for DVT prophylaxis as per orthopedics Continue home Zetia, he receives Repatha injections every 2 weeks, and continue home metoprolol, lisinopril (on hold as above) (6) Depression: Plan: Stable, not on medication anymore (7) Dyslipidemia (high LDL; low HDL): Plan: Zetia and Repatha (8) CKD (chronic kidney disease) stage 3, GFR 30-59 ml/min: Plan: Creatinine mildly elevated over baseline at 1.3-1.4, elevated to 1.[address] further lisinopril on hold, BP stable 153/71 Toradol IV ordered post-op -- rec cautious use of such Avoid further nephrotoxins, renal dose as able BMP in AM Plan DVT prophylaxis-SCDs, aspirin 81 Mg p.o. twice daily Disposition-continued stay medical/surgical unit. Hospitalist service will follow along Admission and Anticipated Discharge Date Admission Date: January 05, 2023 Supervising Physician Co-Signing Physician Notes The patient was not seen by me. The chart was reviewed. Case discussed with JESSIE Angel. Agree with assessment and plan Subjective eval this morning, pain about a 5/10. passing gas, wants to go to bathroom to see if able to have BM. Reports he wishes ortho never sent test as he doesn't want to be in hospital, reassurance provided that this is best to prevent infection to blood/worsening infection/etc. ID not yet seen, or seen by ortho this morning.No fever/chills, chest pain, shortness of breath at this time. Physical Exam Constitutional: WD/WN, vitals as above Eyes: PERRL, conjunctivae normal, anicteric sclerae ENMT: external ear and nose normal, oropharynx normal Neck: trachea midline, no thyromegaly Respiratory: normal respiratory effort, lungs clear to auscultation Cardiovascular: RRR, no murmur, no edema Chest (Breasts): Chest: normal inspection of chest Gastrointestinal (Abdomen): normal bowel sounds, soft, nontender, no hepatosplenomegaly Musculoskeletal: Extremities: + extremities abnormal to inspection (Right lower extremity in dressing and Benito wrap not removed) Skin: no rashes, warm and dry Neurologic: moves all extremities and awake; no focal motor deficits Psychiatric: AOX3, irritated about need for inpatient stay but cooperative with exam Lymphatic: no lymphedema Results & Data Results & Data Vital Signs (Past 12 Hours) Vital Signs Temp Pulse Resp BP Pulse Ox O2 Del Method 01/06/23 07: 36.6 C 65 16 138/75 97 Room Air 01/06/23 03:30 36.7 C 64 18 130/67 97 Room Air 01/05/23 23:00 36.8 C 66 18 131/80 97 Room Air 01/05/23 20:39 Room Air Laboratory Results 07/28/23 07/28/23 07/27/23 Range/Units 05:37 05:37 16:54 WBC 13.97 H (4.8-10.8) K/ul RBC 4.40 L (4.70-6.10) M/uL Hgb 12.8 L (14.0-18.0) g/dl Hct 37.8 L (42.0-52.0) % MCV 85.9 (80.0-100.0) fL MCH 29.1 (25.0-34.0) pg MCHC 33.9 (32.0-36.0) g/dL RDW Std Deviation 43.5 (36.4-46.3) fL RDW Coeff of Wes 13.8 (11.5-14.5) % Plt Count 202 (130-400) K/uL MPV 9.5 (9.4-12.4) fL Immature Gran % (Auto) 0.6 % Neut % (Auto) 85.6 % Lymph % (Auto) 6.8 % Borden % (Auto) 6.3 % Eos % (Auto) 0.3 % Baso % (Auto) 0.4 % Neut # (Auto) 11.96 H (1.40-6.50) K/uL Lymph # (Auto) 0.95 L (1.2-3.4) K/uL Borden # (Auto) 0.88 H (0.11-0.59) K/uL Eos # (Auto) 0.04 (0-0.50) K/uL Baso # (Auto) 0.05 (0-0.2) K/uL Immature Gran # (Auto) 0.09 (0.01-0.20) K/uL Sodium 135 L (136-145) mmol/L Potassium 4.8 (3.5-5.1) mmol/L Chloride 107 (98-107) mmol/L Carbon Dioxide 25 (21-32) mmol/L Anion Gap 3 (3-11) BUN 20 (6-23) mg/dl Creatinine 1.54 H (0.6-1.4) mg/dl Est Cr Clr Drug Dosing 42.0 ml/min Est GFR ( Amer) 53.3 ml/min Est GFR (Non-Af Amer) 46.0 ml/min BUN/Creatinine Ratio 13.0 (10-20) Glucose 106 H (70-99(Fasting)) mg/dl Calcium 8.4 L (8.6-10.3) mg/dl Total Bilirubin 0.3 (0.2-1.0) mg/dl AST 14 (13-39) U/L ALT 9 (7-52) U/L Alkaline Phosphatase 90 (34-104) U/L C-Reactive Protein 0.58 H (0-0.5) mg/dl Total Protein 5.7 L (6.0-8.3) gm/dl Albumin 3.2 L (3.4-5.0) gm/dl Globulin 2.5 (2.5-4.0) gm/dl Albumin/Globulin Ratio 1.3 (0.9-2) Procalcitonin < 0.05 (0-0.5) ng/ml 01/05/23 01/05/23 Range/Units 16:54 16:54 WBC 8.37 (4.8-10.8) K/ul RBC 5.14 (4.70-6.10) M/uL Hgb 15.2 (14.0-18.0) g/dl Hct 44.3 (42.0-52.0) % MCV 86.2 (80.0-100.0) fL MCH 29.6 (25.0-34.0) pg MCHC 34.3 (32.0-36.0) g/dL RDW Std Deviation 43.8 (36.4-46.3) fL RDW Coeff of Wes 13.8 (11.5-14.5) % Plt Count 216 (130-400) K/uL MPV 8.8 L (9.4-12.4) fL Immature Gran % (Auto) 0.6 % Neut % (Auto) 93.4 % Lymph % (Auto) 4.7 % Borden % (Auto) 0.7 % Eos % (Auto) 0.2 % Baso % (Auto) 0.4 % Neut # (Auto) 7.82 H (1.40-6.50) K/uL Lymph # (Auto) 0.39 L (1.2-3.4) K/uL Borden # (Auto) 0.06 L (0.11-0.59) K/uL Eos # (Auto) 0.02 (0-0.50) K/uL Baso # (Auto) 0.03 (0-0.2) K/uL Immature Gran # (Auto) 0.05 (0.01-0.20) K/uL Sodium 134 L (136-145) mmol/L Potassium 4.8 (3.5-5.1) mmol/L Chloride 104 (98-107) mmol/L Carbon Dioxide 24 (21-32) mmol/L Anion Gap 6 (3-11) BUN 16 (6-23) mg/dl Creatinine 1.45 H (0.6-1.4) mg/dl Est Cr Clr Drug Dosing 44.6 ml/min Est GFR ( Amer) 57.3 ml/min Est GFR (Non-Af Amer) 49.5 ml/min BUN/Creatinine Ratio 11.0 (10-20) Glucose 123 H (70-99(Fasting)) mg/dl Calcium 8.9 (8.6-10.3) mg/dl Total Bilirubin (0.2-1.0) mg/dl AST (13-39) U/L ALT (7-52) U/L Alkaline Phosphatase (34-104) U/L C-Reactive Protein (0-0.5) mg/dl Total Protein (6.0-8.3) gm/dl Albumin (3.4-5.0) gm/dl Globulin (2.5-4.0) gm/dl Albumin/Globulin Ratio (0.9-2) Procalcitonin (0-0.5) ng/ml Diagnostic Findings Knee X-Ray 01/05/23 14:12 XR knee RT 1 or 2V routine CLINICAL HISTORY: Postoperative evaluation. COMPARISON: Knee radiographs October 18, 2022. FINDINGS: Total right knee arthroplasty is noted. The hardware is intact. There is no periprosthetic fracture. There are no unexpected radiopaque foreign bodies. There are skin asmita. IMPRESSION: Expected findings following total right knee arthroplasty. ACT 112: Negative or not required by law. Electronically signed by: Javid Gerardo M.D. 01/05/2023 2:58 PM PG Care Time/CCT Total # of Minutes Spent Total Time Spent with Patient: Total time spent is greater than 50% in coordination of care (as documented) at patient's floor/unit and/or counseling patient: Coding Level of Care Code 95913 SUB INP/OBS CARE MIN Diagnoses Infected prosthetic knee joint T84.59XA; Z96.659 Benign essential hypertension I10 Chronic obstructive pulmonary disease, unspecified J44.9 Current smoker F17.200 Coronary artery disease I25.10 Depression F32.9 Dyslipidemia (high LDL; low HDL) E78.5 CKD (chronic kidney disease) stage 3, GFR 30-59 ml/min N18.30
[2023-01-06] MEDS ORDERED: dexAMETHasone 4 MG TAB PO SCH (08:00)
[2023-01-06] MEDS: lisinopril 5 MG TAB PO SCH (09:17)
[2023-01-06] MEDS: METOPROLOL SUCC 50MG EXT REL TAB PO SCH (09:17)
[2023-01-06] MEDS: EZETIMIBE 10 MG TAB PO SCH (09:17)
[2023-01-06] MEDS: MULTIVITAMIN TAB PO SCH (09:18)
[2023-01-06] MEDS: ASPIRIN 81 MG ECTAB PO SCH ×2 (09:19→20:49)
[2023-01-06] MEDS: DOCUSATE SODIUM 100 MG CAP PO SCH ×2 (09:20→20:50)
[2023-01-06] MEDS: VANCOMYCIN HCL 1,000 MG in SODIUM CHLORIDE 0.9% 250 ML IV SCH (09:23)
[2023-01-06 09:46] LABS: Basophils # (auto) 0.05 K/uL (0-0.2); Basophils % (auto) 0.4 %; Eosinophils # (auto) 0.04 K/uL (0-0.50); Eosinophils % (auto) 0.3 %; Hematocrit (blood only) 37.8 % (42.0-52.0); Hemoglobin 12.8 g/dl (14.0-18.0); Immature Granulocytes # (auto) 0.09 K/uL (0.01-0.20); Immature Granulocytes % (auto) 0.6 %; Lymphocytes # (auto) 0.95 K/uL (1.2-3.4); Lymphocytes % (auto) 6.8 %; Mean Corpuscular Hemoglobin 29.1 pg (25.0-34.0); Mean Corpuscular Hgb Conc 33.9 g/dL (32.0-36.0); Mean Corpuscular Volume 85.9 fL (80.0-100.0); Mean Platelet Volume 9.5 fL (9.4-12.4); Monocytes # (auto) 0.88 K/uL (0.11-0.59); Monocytes % (auto) 6.3 %; Neutrophils # (auto) 11.96 K/uL (1.40-6.50); Neutrophils % (auto) 85.6 %; Platelet Count 202 K/uL (130-400); RDW Coefficient of Variation 13.8 % (11.5-14.5); RDW Standard Deviation 43.5 fL (36.4-46.3); White Blood Count 13.97 K/ul (4.8-10.8)
--- NOTE | 2023-01-06 11:46 | Infectious Disease Consult ---
Date of Consultation January 06, 2023 Assessment & Plan (1) Infected prosthetic knee joint: Plan Micro: 01/05 OR R knee synovium: pin-point growth present, reincubating. GS--no organisms 01/05 OR R knee synovial fluid: NGTD. GS--no organisms 01/05 BCx x2: pending 12/28 R knee joint fluid: -Cx NG. GS--no organisms -Cell counts: 5718 WBCs (92% neutrophils), 29K RBCs -No crystals -Synovasure positive for alpha defensin, neutrophil elastase. Microbial ID panel negative for P acnes, Staph, Genevieve, Enterococcus Abx: Vanc 01/05 - present Cefazolin 01/05 Problems: #Concern for R TKA PJI s/p DAIR procedure 01/05 #Elevated inflammatory markers 67 yo M with history of HTN, HLD, CKD, CAD s/p stent, COPD, osteoarthritis s/p R TKA (08/2021) c/b pain/instability without signs of infection s/p revision to a CCK constrained knee replacement (08/2022) c/b swelling, pain, recurrent effusio ns with c/f prosthetic joint infection. Per ortho note, pt's knee would swell throughout the day, and then go down by morning, and pt did not have erythema of the knee or fevers. He underwent knee aspiration in Ortho clinic on 12/28, and fluid did not look infected--appeared blood-tinged, watery. Labs showed no leukocytosis, ESR 28, CRP 2.46. Joint fluid showed 5718 WBCs (92% neutrophils), 29K RBCs, no crystals. Synovasure testing was positive for alpha-defensin, and microbial ID panel negative for P acnes, Staph, Genevieve, and Enterococcus. Culture was no growth. Pt had well-cemented stemmed femoral and tibial components, and there was concern for significant morbidity to remove the components from his knee. Ortho discussed with the pt a DAIR procedure vs two- stage revision, and the pt opted to try the DAIR procedure first. Now s/p OR on 01/05. Standard synovial fluid was seen which did not appear infected, and there was no purulent fluid. Polyethylene insert was exchanged. Pt was given lizzeth-op cefazolin and subsequently started on vanc. OR culture shows pin-point growth, reincubating. Recommendations: -Follow-up 01/05 OR cultures -Continue vancomycin -Added ceftriaxone 2 g IV daily -With concern for prosthetic joint infection with retained hardware, would plan for 6 weeks of IV antibiotics, followed by PO antibiotic suppression for likely at least 1 year Will continue to follow. Please note that there will be no ID notes over the weekend. If questions or concerns arise, please contact the Infectious Disease Call Center and ask to speak with the covering ID physician. I will be back on service on Monday. Consultation Information This patient recommendation is based on a telemedicine consult request which was completed asynchronously through chart review and information provided by the primary physician. The patient was not seen or examined today. The evaluation is consultative in nature and all patient care and treatment decisions can either be accepted or rejected by the patient's primary hospital-based treating physician using their own independent medical judgment for their patient. Archivist Political History contact information: Please call ID Connect Call Center . (Phone Number For Physician Use Only) Time Spent Reviewing Chart: 31+ minutes History of Present Illness Reason for Consultation: prosthetic joint infection Requesting Physician: JESSIE Saleh Attending Physician: Joshua Andrew DO History of Present Illness 67 yo M with history of HTN, HLD, CKD, CAD s/p stent, COPD, osteoarthritis s/p R TKA (08/2021) c/b pain/instability without signs of infection s/p revision to a CCK constrained knee replacement (08/2022) c/b swelling, pain, recurrent effusions with c/f prosthetic joint infection. Per ortho note, pt's knee would swell throughout the day, and then go down by morning, and pt did not have erythema of the knee or fevers. He underwent knee aspiration in Ortho clinic on 12/28, and fluid did not appear infected--appeared blood-tinged, watery. Labs showed no leukocytosis, ESR 28, CRP 2.46. Joint fluid showed 5718 WBCs (92% neutrophils), 29K RBCs, no crystals. Synovasure testing was positive for alpha- defensin, and microbial ID panel negative for P acnes, Staph, Genevieve, and Enterococcus. Culture was no growth. Pt had well-cemented stemmed femoral and tibial components, and there was concern for significant morbidity to remove the components from his knee. Ortho discussed with the pt a DAIR procedure vs two- stage revision, and the pt opted to try the DAIR procedure first. Pt was taken to the OR on 01/05. Standard synovial fluid was seen which did not appear infected, and there was no purulent fluid. Polyethylene insert was exchanged. Pt was given lizzeth-op cefazolin and subsequently started on vanc. Allergies Allergy/AdvReac Type Severity Reaction Status Date / Time ibuprofen [From Motrin] Allergy Intermediate GI Upset, Verified 01/04/23 09:34 diffuse rash Home Medications Medication Instructions Recorded Confirmed Type nitroglycerin 0.4 mg sublingual 0.4 mg sublingual UD PRN Chest Pain 03/19/18 01/05/23 History tablet (Nitrostat) albuterol sulfate 90 mcg/actuation 2 puffs inhalation Q6H PRN 11/13/19 01/05/23 Rx aerosol inhaler (Ventolin HFA) shortness of breath or wheezing #6.7 grams meloxicam 15 mg tablet 15 mg PO QAM 06/28/22 01/05/23 History evolocumab 140 mg/mL subcutaneous 140 mg subcut Q14D 07/29/22 01/05/23 History syringe (Repatha Syringe) lisinopril 5 mg tablet 5 mg PO QAM 07/29/22 01/05/23 History ezetimibe 10 mg tablet (Zetia) 10 mg PO QAM #90 tabs 09/12/22 01/05/23 Rx tramadol 50 mg tablet 50 mg PO Q8H PRN pain #30 tabs 12/07/22 01/05/23 Rx aspirin 81 mg tablet,delayed 81 mg PO QAM 01/04/23 01/05/23 History release (Vandana Low Dose Aspirin) metoprolol succinate 50 mg 50 mg PO QAM 01/04/23 01/05/23 History tablet,extended release 24 hr Patient History Medical History (Updated 01/05/23 @ 19:59 by Kassi Phelps MD) Anxiety and depression Bipolar disorder Chronic back pain Chronic obstructive pulmonary disease, unspecified CKD (chronic kidney disease) stage 3, GFR 30-59 ml/min Closed compression fracture of L3 vertebra 2018 (no surgical intervention > conservative management) Coronary artery disease First diagonal and RCA PCI (2012, 2014) Cardiac Cath 2017 ([employer] [facility] of distal circumflex) Current smoker Degenerative disc disease Dyslipidemia (high LDL; low HDL) Hearing difficulty Heart attack Total x3 (/2014) Follows with [facility] cardiology History of COVID-19 06/15/21- nausea, tested negative at [facility] Hx of rheumatic fever As child Hypertension Post traumatic stress disorder Restless legs syndrome Surgical History History of arthroscopy Right knee PMM, chondroplasty (02/04/21): LMA#4 at [facility]. No issues per anesthesia progress note. History of back surgery Lumbar decompression History of cardiac cath 2008 ([facility]) First diagonal and RCA PCI (2012, 2014) Cardiac Cath 03/2018 [facility] [facility] of distal circumflex ([facility]); f/u jonny adan [place]---pt states total of 2 stents History of cholecystectomy History of cochlear implant right osteointegrated implant History of colonoscopy History of heart artery stent First diagonal and RCA PCI (2012, 2014) History of laminectomy L4-S1 History of total right knee replacement Right TKA (09/03/21): LMA igel#4 + PNB at [facility] (pt concern with neuraxial anesthesia given hx of significant pain/paresthesia with cortisone injections in past per 08/2021 anesthesia consult) Status post revision of total replacement of right knee Revision TKA with removal of hardware and conversion to PRK femoral implant (08/22/22): LMA#4.0, atraumatic + PNB at [facility] Family History Other Adopted Family history not known due to adoption Social History Smoking Status: Current every day smoker Tobacco Type: Cigarettes packs per day: 0.5; Cigarettes Per Day: 10 cigs/day (advised on policy); Second Hand Exposure: No; Do You Dip or Chew Tobacco: No; Tobacco Cessation Education Requested by Patient: No Hx Alcohol Use: No Hx Substance Use: Yes (smokes marijuana (advised on policy)) Last Used Substance: Days (ago) Last Used Substance Other:: 2 days ago used marijuana Substance Use Type Other:: smokes few times per month, aware of pre-op interval Preferred Language: Turkmen Communication Ability: Effective Visual Impairment: No Limitations Hearing Ability: Use of Hearing Aid Supervisor Pig Machine Required: No Beliefs That Will Affect Care: None marital status: Current Living Situation: Spouse and Family Current Living Situation Comment: Lives with , daughter and 2 grandkids current occupational status: retired How many Children do You have: 4 Other Information That Helps Us Care for You: No Feels Safe at Home: Yes Safety Concerns: Feels Safe At This Time Childhood Exposure to Second-Hand Smoke: Yes Diet: regular caffeine: Yes during the past year weight has: remained stable Dental Care, Regularly: No Physical Activity Frequency: Daily Seatbelt Use: always Sunscreen Use: No Assistive Devices: Cane and Walker Assistive Devices Comment: cochlear implant right ear Review of System pt not seen Physical Exam Physical Exam: pt not seen Results & Data Vital Signs (Past 12 Hours) Vital Signs Temp Pulse Resp BP Pulse Ox O2 Del Method 01/06/23 07:30 Room Air 01/06/23 09:15 61 153/71 H 01/06/23 07:23 36.6 C 65 16 138/75 97 Room Air 01/06/23 03:30 36.7 C 64 18 130/67 97 Room Air Laboratory Results Short CBC 01/05/23 01/06/23 Range/Units 16:54 05:37 WBC 8.37 13.97 H (4.8-10.8) K/ul Hgb 15.2 12.8 L (14.0-18.0) g/dl Hct 44.3 37.8 L (42.0-52.0) % Plt Count 216 202 (130-400) K/uL BMP 01/05/23 01/06/23 16:54 05:37 Sodium 134 L 135 L Potassium 4.8 4.8 Chloride 104 107 Carbon Dioxide 24 25 BUN 16 20 Creatinine 1.45 H 1.54 H Glucose 123 H 106 H Calcium 8.9 8.4 L Liver Function 01/06/23 Range/Units 05:37 Total Bilirubin 0.3 (0.2-1.0) mg/dl AST 14 (13-39) U/L ALT 9 (7-52) U/L Alkaline Phosphatase 90 (34-104) U/L Albumin 3.2 L (3.4-5.0) gm/dl Diagnostic Findings Knee X-Ray 01/05/23 14:12 XR knee RT 1 or 2V routine CLINICAL HISTORY: Postoperative evaluation. COMPARISON: Knee radiographs October 18, 2022. FINDINGS: Total right knee arthroplasty is noted. The hardware is intact. There is no periprosthetic fracture. There are no unexpected radiopaque foreign bodies. There are skin asmita. IMPRESSION: Expected findings following total right knee arthroplasty. ACT 112: Negative or not required by law. Electronically signed by: Javid Gerardo M.D. 01/05/2023 2:58 PM Medications Administered Current Inpatient Medications Acetaminophen (Acetaminophen 500 Mg Tab) 1,000 mg PO Q8 ANGEL Stop: 02/04/23 21:59 Last Admin: 01/06/23 05:50 Dose: 1,000 mg Albuterol (Albuterol Hfa 8 Gm Inhaler) 2 puffs INH Q6H PRN PRN Reason: shortness of breath or wheezin Stop: 02/04/23 16:27 Aspirin (Aspirin 81 Mg Ectab) 81 mg PO BID ANGEL Stop: 02/04/23 20:59 Last Admin: 01/06/23 09:19 Dose: 81 mg Bisacodyl (Bisacodyl 10 Mg Supp) 10 mg NE DAILY PRN PRN Reason: Constipation Stop: 02/04/23 16:27 Docusate Sodium (Docusate Sodium 100 Mg Cap) 100 mg PO BID ANGEL Stop: 02/04/23 20:59 Last Admin: 01/06/23 09:20 Dose: Not Given Ezetimibe (Ezetimibe 10 Mg Tablet) 10 mg PO QAM ANGEL Stop: 02/05/23 08:59 Last Admin: 01/06/23 09:17 Dose: 10 mg Hydromorphone HCl (Hydromorphone Inj 0.5 Mg/0.5 Ml Syr) 0.5 mg IV Q4H PRN PRN Reason: Pain or Pre PT Stop: 01/19/23 16:27 Vancomycin HCl 1,000 mg/ (Sodium Chloride) 270 mls @ 200 mls/hr IV Q24H ANGEL Stop: 01/08/23 07:59 Last Infusion: 01/06/23 11:04 Dose: Infused Ketorolac Tromethamine (Ketorolac Tromethamine 15 Mg/Ml Vial) 15 mg IV Q6H ANGEL Stop: 01/07/23 11:01 Last Admin: 01/06/23 11:09 Dose: Not Given Lisinopril (Lisinopril 5 Mg Tab) 5 mg PO [facility] Stop: 02/05/23 08:59 Last Admin: 01/06/23 09:17 Dose: 5 mg Magnesium Hydroxide (Magnesium Hydroxide Susp 30 Ml Udc) 30 ml PO Q6H PRN PRN Reason: Constipation Stop: 02/04/23 16:27 Metoclopramide HCl (Metoclopramide Hcl Inj 5 Mg/Ml 2 Ml Vial) 10 mg IV Q6H PRN PRN Reason: Nausea And Vomiting Stop: 02/04/23 16:27 Metoprolol Succinate (Metoprolol Succ 50mg Ext Rel Tab) 50 mg PO [facility] Stop: 02/05/23 08:59 Last Admin: 01/06/23 09:17 Dose: 50 mg Miscellaneous Information (Vancomycin Consult Active) 1 each N/A UD PRN PRN Reason: Consult Stop: 02/04/23 16:27 Multivitamins (Multivitamin Tab) 1 tab PO [facility] Stop: 02/05/23 08:59 Last Admin: 01/06/23 09:18 Dose: 1 tab Naloxone HCl (Naloxone Hcl 0.4 Mg/1 Ml Vial/Carp) 0.1 mg IV Q5M PRN PRN Reason: Oversedation/Resp Depression Stop: 02/04/23 16:27 Nitroglycerin (Nitroglycerin Sl 0.4 Mg/Tab Tab) 0.4 mg SL UD PRN PRN Reason: Chest Pain Stop: 02/04/23 16:27 Ondansetron HCl (Ondansetron Inj 2 Mg/Ml 2 Ml Vial) 4 mg IV Q6H PRN PRN Reason: Nausea And Vomiting Stop: 02/04/23 16:27 Oxycodone HCl (Oxycodone Hcl Ir 5 Mg Tab (Immediate Release)) 5 - 10 mg PO Q4H PRN PRN Reason: Pain or Pre PT Stop: 01/19/23 16:27 Last Admin: 01/06/23 11:13 Dose: 10 mg Sennosides (Senna 8.6 Mg Tab) 17.2 mg PO [facility] Stop: 02/04/23 20:59 Last Admin: 01/05/23 20:09 Dose: Not Given
[2023-01-06] MEDS ORDERED: cefTRIAXone SODIUM 2,000 MG in DEXTROSE 5% 50 ML IV SCH (12:45)
[2023-01-06] MEDS: cefTRIAXone SODIUM 2,000 MG in DEXTROSE 5% 50 ML IV SCH (13:18)
--- NOTE | 2023-01-06 14:51 | Orthopedic Progress Note ---
Date of Service January 06, 2023 Assessment & Plan (1) Infected prosthetic knee joint: Overall he is doing very well. He is up and ambulating. He says his knee feels really good. He is currently on vancomycin and ceftriaxone IV. He was seen by the hospitalist and by infectious disease today. So far his cultures have come back negative. Blood cultures have already been drawn. We will likely set up a PICC line on Monday and discharge him to home on Monday. We will see how he does over the weekend. Pippa Bell was seen and examined at bedside this morning. Overall he is doing very well. He says that this is the best his knee is felt in a very long time. He has been up and ambulating. He was seen today by the hospitalist and by infectious disease. He has no other complaints.. Review of Systems All systems reviewed & are unremarkable except as noted in HPI & below. Physical Exam On physical examination of the right knee, the dressing is clean and dry. He is sitting with his knee bent at 90 degrees. Results & Data Results & Data Laboratory Results . Diagnostic Findings . PG Care Time/CCT Total # of Minutes Spent Total Time Spent with Patient: Total time spent is greater than 50% in coordination of care (as documented) at patient's floor/unit and/or counseling patient: Coding Level of Care Code 33198 Post Operative Follow-Up Diagnoses Infected prosthetic knee joint T84.59XA; Z96.659
[2023-01-06] MEDS: ONDANSETRON INJ 2 MG/ML 2 ML VIAL IV PRN (19:27)
[2023-01-06] MEDS: SENNA 8.6 MG TAB PO SCH (20:50)
[2023-01-07] MEDS: ACETAMINOPHEN 500 MG TAB PO SCH ×3 (04:58→21:24)
[2023-01-07] MEDS: KETOROLAC TROMETHAMINE 15 MG/ML VIAL IV SCH (04:58)
--- NOTE | 2023-01-07 06:38 | Orthopedic Progress Note ---
Date of Service January 07, 2023 Assessment & Plan (1) Infected prosthetic knee joint: Overall he is doing fairly well. He is not having much pain in his knee. He is on IV ceftriaxone and vancomycin azithromycin. He has been seen by infectious disease and the hospitalist. So far cultures have all been negative. We will keep him on the IV antibiotics today. Hopefully we can get a PICC line in him tomorrow. He will be seen by infectious disease again on Monday and we hope to discharge him to home then. The nursing staff can change his dressing today. Pippa Bell was seen and examined at bedside this morning. Overall is doing very very well. He is not having much pain in the knee. He is much better than he was before the surgery. He is currently on vancomycin and ceftriaxone. He has no complaints.. Review of Systems All systems reviewed & are unremarkable except as noted in HPI & below. Physical Exam On physical examination of the right knee, the dressing is clean and dry. He has excellent motion of his knee.. Results & Data Results & Data Laboratory Results . Diagnostic Findings . PG Care Time/CCT Total # of Minutes Spent Total Time Spent with Patient: Total time spent is greater than 50% in coordination of care (as documented) at patient's floor/unit and/or counseling patient: Coding Level of Care Code 93254 Post Operative Follow-Up Diagnoses Infected prosthetic knee joint T84.59XA; Z96.659
[2023-01-07] MEDS: VANCOMYCIN HCL 1,000 MG in SODIUM CHLORIDE 0.9% 250 ML IV SCH ×2 (07:43→08:33)
--- NOTE | 2023-01-07 07:49 | Hospitalist Progress Note ---
Date of Service January 07, 2023 Assessment & Plan (1) Infected prosthetic knee joint: Plan: Patient with negative cultures from right knee aspiration on 12/28 performed by orthopedics, but the Synovasure test was positive for alpha defense and He has not had any fevers or chills, no leukocytosis, no systemic symptoms. Only symptom was knee effusion and pain, no erythema. CRP was elevated at 2, procalcitonin is negative POD#2 s/p Open Irrigation and Debridement, Poly Exchange of Right Total Knee Arthroplasty(Right) by Dr. Andrew on 01/05 Hgb 12.8 on labs, acute blood loss anemia from surgery and dilutional aspect from IVF. Repeat hgb remaining stable ID consult ordered by primary service Continues on Vanco/Rocpehin OR Cx w/ staph species on preliminary -- monitor Blood cultures remaining NGTD D/c further Toradol -- patient w/ issues w/ ibuprofen use. Protonix IVP x 1 ordered and plan to start daily PO supp for tomorrow. Discussed if any coffee ground emesis/bleeding to notify immediately (2) Benign essential hypertension: Plan: BP elevated, reporting some increased pain today Continues on metoprolol, lisinopril resumed Monitor (3) Chronic obstructive pulmonary disease, unspecified: Plan: No acute issues Albuterol inhaler as needed -- faint wheezing on exam, no SOB/hypoxia -- discussed albuterol HFA available Counseled on smoking cessation 98% on RA (4) Current smoker: Plan: counseled on smoking cessation and importance in wound healing He declines a nicotine patch at this time he is contemplating quitting (5) Coronary artery disease: Plan: CAD s/p RCA and 1st Diagonal Stents Stable, no chest pain Continue home aspirin but this has been increased to twice daily for DVT prophylaxis as per orthopedics Continue home Zetia, he receives Repatha injections every 2 weeks, and continue home metoprolol, lisinopril (6) Depression: Plan: Stable, not on medication anymore (7) Dyslipidemia (high LDL; low HDL): Plan: Zetia and Repatha (8) CKD (chronic kidney disease) stage 3, GFR 30-59 ml/min: Plan: Creatinine mildly elevated over baseline at 1.3-1.4 Appearing stable renal function, toradol discontinued Renal dose meds/avoid nephrotoxins as able and monitor BMP in AM (9) Nausea and vomiting: Plan: he reports he thinks from pain medication -- review meds w/ toradol use. Issues w/ GI upset w/ ibuprofen. Protonix IVP x 1 and start PO for tomorrow for GI proph as above Antiemetics prn Plan DVT prophylaxis-SCDs, aspirin 81 Mg p.o. twice daily Disposition-continued stay medical/surgical unit. Hospitalist service will follow along Admission and Anticipated Discharge Date Admission Date: January 05, 2023 Supervising Physician Co-Signing Physician Notes The patient was not seen by me. The chart was reviewed. Case discussed with JESSIE Angel. Agree with assessment and plan Subjective eval this morning, having some nausea/vomiting. Reports he thinks from the medications they gave him last night. Review of medications w/ reports of toradol and tylenol given. Prior allergy to ibuprofen with GI upset. Will order PPI IVP x 1 now, start PO protonix for AM. Clear emesis in the bag presently however darker bile in bag from last night.Discussed any further vomiting/coffee ground emesis to let us know. No fever/chills, chest pain, shortness of breath. Decent pain to his knee since nerve block has worn off. Remains on IV abx per GI, moving bowels. Review of Systems Review of Systems: All systems reviewed & are unremarkable except as noted in HPI & below Physical Exam Constitutional: WD/WN, vitals as above NAD but feeling nauseated Eyes: PERRL, conjunctivae normal, anicteric sclerae ENMT: external ear and nose normal, oropharynx normal Neck: trachea midline, no thyromegaly Respiratory: normal respiratory effort, lungs clear to auscultation faint expiratory wheezing, 98% on RA Cardiovascular: RRR, no murmur, no edema Chest (Breasts): Chest: normal inspection of chest Gastrointestinal (Abdomen): normal bowel sounds, soft, nontender, no hepatosplenomegaly Musculoskeletal: Extremities: + extremities abnormal to inspection (Right lower extremity in dressing and Benito wrap not removed) Skin: no rashes, warm and dry Neurologic: moves all extremities and awake; no focal motor deficits Psychiatric: AOX3, irritated about need for inpatient stay but cooperative with exam Lymphatic: no lymphedema Results & Data Results & Data Vital Signs (Past 12 Hours) Vital Signs Temp Pulse Resp BP Pulse Ox O2 Del Method 07/29/23 02:36 36.6 C 67 16 153/76 H 95 Room Air 01/06/23 22:48 36.7 C 52 L 16 149/79 H 97 Room Air Laboratory Results 01/07/23 01/07/23 Range/Units 08:12 08:12 WBC 12.65 H (4.8-10.8) K/ul RBC 4.39 L (4.70-6.10) M/uL Hgb 12.8 L (14.0-18.0) g/dl Hct 37.8 L (42.0-52.0) % MCV 86.1 (80.0-100.0) fL MCH 29.2 (25.0-34.0) pg MCHC 33.9 (32.0-36.0) g/dL RDW Std Deviation 44.6 (36.4-46.3) fL RDW Coeff of Wes 14.3 (11.5-14.5) % Plt Count 208 (130-400) K/uL MPV 9.5 (9.4-12.4) fL Immature Gran % (Auto) 0.4 % Neut % (Auto) 79.2 % Lymph % (Auto) 10.8 % Ballard % (Auto) 5.5 % Eos % (Auto) 3.6 % Baso % (Auto) 0.5 % Neut # (Auto) 10.01 H (1.40-6.50) K/uL Lymph # (Auto) 1.37 (1.2-3.4) K/uL Ballard # (Auto) 0.70 H (0.11-0.59) K/uL Eos # (Auto) 0.46 (0-0.50) K/uL Baso # (Auto) 0.06 (0-0.2) K/uL Immature Gran # (Auto) 0.05 (0.01-0.20) K/uL Sodium 136 (136-145) mmol/L Potassium 4.2 (3.5-5.1) mmol/L Chloride 105 (98-107) mmol/L Carbon Dioxide 26 (21-32) mmol/L Anion Gap 5 (3-11) BUN 20 (6-23) mg/dl Creatinine 1.42 H (0.6-1.4) mg/dl Est Cr Clr Drug Dosing 45.5 ml/min Est GFR ( Amer) 58.8 ml/min Est GFR (Non-Af Amer) 50.7 ml/min BUN/Creatinine Ratio 14.1 (10-20) Glucose 90 (70-99(Fasting)) mg/dl Calcium 8.7 (8.6-10.3) mg/dl Magnesium 1.8 (1.7-2.4) mg/dl PG Care Time/CCT Total # of Minutes Spent Total Time Spent with Patient: Total time spent is greater than 50% in coordination of care (as documented) at patient's floor/unit and/or counseling patient: Coding Level of Care Code 00096 SUB INP/OBS CARE 2/35MIN Diagnoses Infected prosthetic knee joint T84.59XA; Z96.659 Benign essential hypertension I10 Chronic obstructive pulmonary disease, unspecified J44.9 Current smoker F17.200 Coronary artery disease I25.10 Depression F32.9 Dyslipidemia (high LDL; low HDL) E78.5 CKD (chronic kidney disease) stage 3, GFR 30-59 ml/min N18.30 Nausea and vomiting R11.2
[2023-01-07] MEDS: ONDANSETRON INJ 2 MG/ML 2 ML VIAL IV PRN (08:32)
[2023-01-07 08:47] LABS: Basophils # (auto) 0.06 K/uL (0-0.2); Basophils % (auto) 0.5 %; Eosinophils # (auto) 0.46 K/uL (0-0.50); Eosinophils % (auto) 3.6 %; Hematocrit (blood only) 37.8 % (42.0-52.0); Hemoglobin 12.8 g/dl (14.0-18.0); Immature Granulocytes # (auto) 0.05 K/uL (0.01-0.20); Immature Granulocytes % (auto) 0.4 %; Lymphocytes # (auto) 1.37 K/uL (1.2-3.4); Lymphocytes % (auto) 10.8 %; Mean Corpuscular Hemoglobin 29.2 pg (25.0-34.0); Mean Corpuscular Hgb Conc 33.9 g/dL (32.0-36.0); Mean Corpuscular Volume 86.1 fL (80.0-100.0); Mean Platelet Volume 9.5 fL (9.4-12.4); Monocytes % (auto) 5.5 %; Neutrophils # (auto) 10.01 K/uL (1.40-6.50); Neutrophils % (auto) 79.2 %; Platelet Count 208 K/uL (130-400); RDW Coefficient of Variation 14.3 % (11.5-14.5); RDW Standard Deviation 44.6 fL (36.4-46.3); Red Blood Count 4.39 M/uL (4.70-6.10); White Blood Count 12.65 K/ul (4.8-10.8)
[2023-01-07 09:08] LABS: BUN Creatinine Ratio 14.1 (10-20); Calcium 8.7 mg/dl (8.6-10.3); Creatinine Clr Calc Pharmacy 45.5 ml/min; Est GFR (African American) 58.8 ml/min; Est GFR (Non-African American) 50.7 ml/min; Magnesium 1.8 mg/dl (1.7-2.4); Potassium 4.2 mmol/L (3.5-5.1)
[2023-01-07] MEDS ORDERED: PANTOprazole 40 MG in SYRINGE 0 ML IV ONE (09:41)
[2023-01-07] MEDS: METOPROLOL SUCC 50MG EXT REL TAB PO SCH (10:04)
[2023-01-07] MEDS: oxyCODONE HCL IR 5 MG TAB (IMMEDIATE RELEASE) PO PRN ×2 (13:05→21:24)
[2023-01-07] MEDS: EZETIMIBE 10 MG TAB PO SCH (13:06)
[2023-01-07] MEDS: MULTIVITAMIN TAB PO SCH (13:06)
[2023-01-07] MEDS: DOCUSATE SODIUM 100 MG CAP PO SCH ×2 (13:06→21:24)
[2023-01-07] MEDS: ASPIRIN 81 MG ECTAB PO SCH ×2 (13:06→21:24)
[2023-01-07] MEDS: cefTRIAXone SODIUM 2,000 MG in DEXTROSE 5% 50 ML IV SCH (13:07)
[2023-01-07] MEDS: SENNA 8.6 MG TAB PO SCH (21:23)
[2023-01-08] MEDS: ACETAMINOPHEN 500 MG TAB PO SCH ×3 (06:05→20:58)
[2023-01-08 06:45] LABS: BUN Creatinine Ratio 12.9 (10-20); Calcium 8.8 mg/dl (8.6-10.3); Creatinine Clr Calc Pharmacy 46.2 ml/min; Est GFR (African American) 59.8 ml/min; Est GFR (Non-African American) 51.6 ml/min; Potassium 4.3 mmol/L (3.5-5.1)
[2023-01-08] MEDS ORDERED: VANCOMYCIN LEVEL ONE (07:30)
--- NOTE | 2023-01-08 07:38 | Hospitalist Progress Note ---
Date of Service January 08, 2023 Assessment & Plan (1) Infected prosthetic knee joint: Plan: Patient with negative cultures from right knee aspiration on 12/28 performed by orthopedics, but the Synovasure test was positive for alpha defense and He has not had any fevers or chills, no leukocytosis, no systemic symptoms. Only symptom was knee effusion and pain, no erythema. CRP was elevated at 2, procalcitonin is negative POD#3 s/p Open Irrigation and Debridement, Poly Exchange of Right Total Knee Arthroplasty(Right) by Dr. Andrew on 01/05 Hgb 12.8 on labs, acute blood loss anemia from surgery and dilutional aspect from IVF. Repeat hgb remaining stable ID consult ordered by primary service Continues on Vanco/Rocpehin for now OR Cx w/ staph species on preliminary -- monitor Blood cultures remaining NGTD x48 hours PICC line consent obtained by primary in anticipation for discharge tomorrow. CM to follow to assist in arranging outpt IV abx No further toradol, had been given IV protonix yesterday morning and continues on daily protonix while inpatient Hospitalist service will sign off at this time unless any new issues arise overnight. Would consider continuing daily PPI at discharge as discussed w/ patient Please call with any questions/concerns. (2) Benign essential hypertension: Plan: BP elevated, likely 2nd to pain. Not symptomatic from such Remains on metoprolol/lisinopril (3) Chronic obstructive pulmonary disease, unspecified: Plan: No acute issues Albuterol inhaler as needed -- faint wheezing on exam day prior, resolved today, no SOB/hypoxia -- discussed albuterol HFA available if needed Counseled on smoking cessation 98% on RA at present (4) Current smoker: Plan: counseled on smoking cessation and importance in wound healing He declines a nicotine patch at this time he is contemplating quitting (5) Coronary artery disease: Plan: CAD s/p RCA and 1st Diagonal Stents Stable, no chest pain Continue home aspirin -- this has been increased to twice daily for DVT prophylaxis as per orthopedics Continue home Zetia, he receives Repatha injections every 2 weeks, and continue home metoprolol, lisinopril (6) Depression: Plan: Stable, not on medication anymore (7) Dyslipidemia (high LDL; low HDL): Plan: Zetia and Repatha (8) CKD (chronic kidney disease) stage 3, GFR 30-59 ml/min: Plan: Creatinine mildly elevated over baseline at 1.3-1.4 Appearing stable renal function, toradol discontinued and remains stable on resumed lisinopril Avoid NSAIDs recommended Renal dose meds/avoid nephrotoxins as able and monitor BMP in AM (9) Nausea and vomiting: Plan: he reports he thinks from pain medication -- review meds w/ toradol use. Issues w/ GI upset w/ ibuprofen. Protonix IVP x 1 and start PO for tomorrow for GI proph as above Antiemetics prn 01/08 --> N/V resolved since PPI use/discontinuation of Toradol --> rec to continue PPI once daily at discharge Plan DVT prophylaxis-SCDs, aspirin 81 Mg p.o. twice daily Hospitalist service will sign off at this time. Please call with any questions/concerns. Admission and Anticipated Discharge Date Admission Date: January 05, 2023 Supervising Physician Co-Signing Physician Notes The patient was not seen by me. The chart was reviewed. Case discussed with JESSIE Angel. Agree with assessment and plan Subjective Eval this morning, doing much better. no further nausea/vomiting. Discussed continuing the PPI and avoiding further NSAIDs. He is quite painful this morning to anterior knee. Seen by Dr Andrew this morning and planning for dc tomorrow once ID finalized recommendations. PICC line consent obtained this morning by primary. Cx still with staph species at present. No fever/chills reported. Questions/concerns addressed at this time. Physical Exam Constitutional: WD/WN, vitals as above Eyes: PERRL, conjunctivae normal, anicteric sclerae ENMT: external ear and nose normal, oropharynx normal Neck: trachea midline, no thyromegaly Respiratory: normal respiratory effort, lungs clear to auscultation Cardiovascular: RRR, no murmur, no edema Chest (Breasts): Chest: normal inspection of chest Gastrointestinal (Abdomen): normal bowel sounds, soft, nontender, no hepatosplenomegaly Musculoskeletal: Extremities: + extremities abnormal to inspection (Right lower extremity in dressing and Benito wrap not removed) Skin: no rashes, warm and dry Neurologic: moves all extremities and awake; no focal motor deficits Lymphatic: no lymphedema Results & Data Results & Data Vital Signs (Past 12 Hours) Vital Signs Temp Pulse Resp BP Pulse Ox O2 Del Method 01/08/23 07:19 36.6 C 66 16 180/91 H 99 Room Air 01/07/23 21:15 Room Air 01/07/23 22:30 157/91 H 01/07/23 21:29 36.6 C 62 16 177/96 H 98 Room Air Laboratory Results 01/08/23 01/08/23 01/07/23 Range/Units 05:26 05:26 08:12 WBC 12.65 H (4.8-10.8) K/ul RBC 4.39 L (4.70-6.10) M/uL Hgb 12.8 L (14.0-18.0) g/dl Hct 37.8 L (42.0-52.0) % MCV 86.1 (80.0-100.0) fL MCH 29.2 (25.0-34.0) pg MCHC 33.9 (32.0-36.0) g/dL RDW Std Deviation 44.6 (36.4-46.3) fL RDW Coeff of Wes 14.3 (11.5-14.5) % Plt Count 208 (130-400) K/uL MPV 9.5 (9.4-12.4) fL Immature Gran % (Auto) 0.4 % Neut % (Auto) 79.2 % Lymph % (Auto) 10.8 % [place] % (Auto) 5.5 % Eos % (Auto) 3.6 % Baso % (Auto) 0.5 % Neut # (Auto) 10.01 H (1.40-6.50) K/uL Lymph # (Auto) 1.37 (1.2-3.4) K/uL [place] # (Auto) 0.70 H (0.11-0.59) K/uL Eos # (Auto) 0.46 (0-0.50) K/uL Baso # (Auto) 0.06 (0-0.2) K/uL Immature Gran # (Auto) 0.05 (0.01-0.20) K/uL Sodium 137 (136-145) mmol/L Potassium 4.3 (3.5-5.1) mmol/L Chloride 102 (98-107) mmol/L Carbon Dioxide 28 (21-32) mmol/L Anion Gap 7 (3-11) BUN 18 (6-23) mg/dl Creatinine 1.40 (0.6-1.4) mg/dl Est Cr Clr Drug Dosing 46.2 ml/min Est GFR ( Amer) 59.8 ml/min Est GFR (Non-Af Amer) 51.6 ml/min BUN/Creatinine Ratio 12.9 (10-20) Glucose 76 (70-99(Fasting)) mg/dl Calcium 8.8 (8.6-10.3) mg/dl Magnesium (1.7-2.4) mg/dl Random Vancomycin 9.1 L (10-20) mcg/ml 01/07/23 Range/Units 08:12 WBC (4.8-10.8) K/ul RBC (4.70-6.10) M/uL Hgb (14.0-18.0) g/dl Hct (42.0-52.0) % MCV (80.0-100.0) fL MCH (25.0-34.0) pg MCHC (32.0-36.0) g/dL RDW Std Deviation (36.4-46.3) fL RDW Coeff of Wes (11.5-14.5) % Plt Count (130-400) K/uL MPV (9.4-12.4) fL Immature Gran % (Auto) % Neut % (Auto) % Lymph % (Auto) % [place] % (Auto) % Eos % (Auto) % Baso % (Auto) % Neut # (Auto) (1.40-6.50) K/uL Lymph # (Auto) (1.2-3.4) K/uL [place] # (Auto) (0.11-0.59) K/uL Eos # (Auto) (0-0.50) K/uL Baso # (Auto) (0-0.2) K/uL Immature Gran # (Auto) (0.01-0.20) K/uL Sodium 136 (136-145) mmol/L Potassium 4.2 (3.5-5.1) mmol/L Chloride 105 (98-107) mmol/L Carbon Dioxide 26 (21-32) mmol/L Anion Gap 5 (3-11) BUN 20 (6-23) mg/dl Creatinine 1.42 H (0.6-1.4) mg/dl Est Cr Clr Drug Dosing 45.5 ml/min Est GFR ( Amer) 58.8 ml/min Est GFR (Non-Af Amer) 50.7 ml/min BUN/Creatinine Ratio 14.1 (10-20) Glucose 90 (70-99(Fasting)) mg/dl Calcium 8.7 (8.6-10.3) mg/dl Magnesium 1.8 (1.7-2.4) mg/dl Random Vancomycin (10-20) mcg/ml PG Care Time/CCT Total # of Minutes Spent Total Time Spent with Patient: Total time spent is greater than 50% in coordination of care (as documented) at patient's floor/unit and/or counseling patient: Coding Level of Care Code 60472 SUB INP/OBS CARE 2/35MIN Diagnoses Infected prosthetic knee joint T84.59XA; Z96.659 Benign essential hypertension I10 Chronic obstructive pulmonary disease, unspecified J44.9 Current smoker F17.200 Coronary artery disease I25.10 Depression F32.9 Dyslipidemia (high LDL; low HDL) E78.5 CKD (chronic kidney disease) stage 3, GFR 30-59 ml/min N18.30 Nausea and vomiting R11.2
[2023-01-08] MEDS: PANTOprazole 40 MG TAB PO SCH (08:02)
[2023-01-08] MEDS: EZETIMIBE 10 MG TAB PO SCH (08:02)
[2023-01-08] MEDS: DOCUSATE SODIUM 100 MG CAP PO SCH ×2 (08:02→20:57)
[2023-01-08] MEDS: MULTIVITAMIN TAB PO SCH (08:02)
[2023-01-08] MEDS: ASPIRIN 81 MG ECTAB PO SCH ×2 (08:02→20:58)
[2023-01-08] MEDS: lisinopril 5 MG TAB PO SCH (08:03)
[2023-01-08] MEDS: METOPROLOL SUCC 50MG EXT REL TAB PO SCH (08:03)
--- NOTE | 2023-01-08 09:08 | Orthopedic Progress Note ---
Date of Service January 08, 2023 Assessment & Plan (1) Infected prosthetic knee joint: The synovial swab cultures have still show no growth to date, however, the tissue cultures have shown a staph species. He is currently on IV vancomycin and ceftriaxone. Because of the staph species, I started him on rifampin 300 mg twice a day. His blood cultures are negative at 48 hours so I consented him for a PICC line and put a PICC line order in for today. He will be seen by infectious disease tomorrow. He is hoping to have final recommendations for antibiotics tomorrow and to be discharged to home tomorrow. We will have the nursing staff change his knee dressing today. Pippa Bell was seen and examined at bedside this morning. Overall is doing very well. He is not having much pain in the right knee. He still feels much better than he did before the surgery. He is currently on IV antibiotics. He has no new complaints.. Review of Systems All systems reviewed & are unremarkable except as noted in HPI & below. Physical Exam On physical examination of the right knee, the dressing is clean and dry. His leg is out full extension. He is neurovascular intact.. Results & Data Results & Data Laboratory Results . Diagnostic Findings . PG Care Time/CCT Total # of Minutes Spent Total Time Spent with Patient: Total time spent is greater than 50% in coordination of care (as documented) at patient's floor/unit and/or counseling patient: Coding Level of Care Code 54084 Post Operative Follow-Up Diagnoses Infected prosthetic knee joint T84.59XA; Z96.659
[2023-01-08] MEDS: oxyCODONE HCL IR 5 MG TAB (IMMEDIATE RELEASE) PO PRN ×2 (09:32→20:57)
[2023-01-08] MEDS: rifAMPin 300 MG CAPSULE PO SCH ×2 (10:22→20:57)
--- NOTE | 2023-01-08 13:17 | Pharmacy Report ---
Pharmacy PK ABX Note - Date of Service January 08, 2023 - Assessment and Plan Assessment 67 year old M receiving IV Vancomycin for empiric treatment of periprosthetic join infection of right knee, s/p open I & D, poly exchange of right TKA . Knee cultures pending. O Day # 3 of antimicrobial therapy. 01/08: * Knee cx growing CoNS not lugdunensis. * Awaiting ID recs for tomorrow to determine discharge abx plan * Rifampin added by ortho today Plan Vancomycin Vancomycin * Current regimen: 1000 mg IV every 24 hours * Random level obtained 01/08/23 resulted as 9.1 mcg/mL. This is not predicted to achieve target AUC/IDALMIS of 400-600 mg/L.hr * Change to 1000 mg IV every 12 hours * Predicted AUC at steady state: 591 mg/L.hr * Repeat trough level ordered for: 01/10/23 @1300 Pharmacy will continue to follow and will adjust dose/frequency as necessary. Thank you. Pharmacy has transitioned to AUC monitoring for vancomycin. AUC/IDALMIS is the preferred PK/PD target and is associated with decreased risk of nephrotoxicity compared to traditional trough targets.
[2023-01-08] MEDS: cefTRIAXone SODIUM 2,000 MG in DEXTROSE 5% 50 ML IV SCH (13:54)
[2023-01-08] MEDS: VANCOMYCIN HCL 1,000 MG in SODIUM CHLORIDE 0.9% 250 ML IV SCH (14:39)
[2023-01-08] MEDS: SENNA 8.6 MG TAB PO SCH (20:56)
[2023-01-09] MEDS: VANCOMYCIN HCL 1,000 MG in SODIUM CHLORIDE 0.9% 250 ML IV SCH (01:23)
[2023-01-09] MEDS: ACETAMINOPHEN 500 MG TAB PO SCH (06:04)
[2023-01-09 07:21] LABS: Creatinine Clr Calc Pharmacy 51.3 ml/min; Est GFR (Non-African American) 58.6 ml/min
[2023-01-09] MEDS: ASPIRIN 81 MG ECTAB PO SCH (09:01)
[2023-01-09] MEDS: METOPROLOL SUCC 50MG EXT REL TAB PO SCH (09:01)
[2023-01-09] MEDS: EZETIMIBE 10 MG TAB PO SCH (09:01)
[2023-01-09] MEDS: PANTOprazole 40 MG TAB PO SCH (09:01)
[2023-01-09] MEDS: DOCUSATE SODIUM 100 MG CAP PO SCH (09:01)
[2023-01-09] MEDS: MULTIVITAMIN TAB PO SCH (09:01)
[2023-01-09] MEDS: lisinopril 5 MG TAB PO SCH (09:01)
[2023-01-09] MEDS: rifAMPin 300 MG CAPSULE PO SCH (09:01)
--- NOTE | 2023-01-09 09:08 | Infectious Disease Progress Nt ---
Date of Service January 09, 2023 Assessment & Plan (1) Infected prosthetic knee joint: Plan Micro: 01/05 OR R knee synovium: coag neg Staph, not lug (S clinda, dapto, oxacillin, tetra, TMP/SMX, vanc). GS--no organisms 01/05 OR R knee synovial fluid: NGTD. GS--no organisms 01/05 BCx x2: NGTD 12/28 R knee joint fluid: -Cx NG. GS--no organisms -Cell counts: 5718 WBCs (92% neutrophils), 29K RBCs -No crystals -Synovasure positive for alpha defensin, neutrophil elastase. Microbial ID panel negative for P acnes, Staph, Genevieve, Enterococcus Abx: Vanc 01/05 - present Ceftriaxone 01/06 - present Cefazolin 01/05 Problems: #R TKA PJI s/p DAIR procedure 01/05 #Elevated inflammatory markers 67 yo M with history of HTN, HLD, CKD, CAD s/p stent, COPD, osteoarthritis s/p R TKA (08/2021) c/b pain/instability without signs of infection s/p revision to a CCK constrained knee replacement (08/2022) c/b swelling, pain, recurrent effusions with c/f prosthetic joint infection. Per ortho note, pt's knee would swell throughout the day, and then go down by morning, and pt did not have erythema of the knee or fevers. He underwent knee aspiration in Ortho clinic on 12/28, and fluid did not look infected--appeared blood-tinged, watery. Labs showed no leukocytosis, ESR 28, CRP 2.46. Joint fluid showed 5718 WBCs (92% neutrophils), 29K RBCs, no crystals. Synovasure testing was positive for alpha- defensin, and microbial ID panel negative for P acnes, Staph, Genevieve, and Enterococcus. Culture was no growth. Pt had well-cemented stemmed femoral and tibial components, and there was concern for significant morbidity to remove the components from his knee. Ortho discussed with the pt a DAIR procedure vs two- stage revision, and the pt opted to try the DAIR procedure first. Now s/p OR on 01/05. Standard synovial fluid was seen which did not appear infected, and there was no purulent fluid. Polyethylene insert was exchanged. Pt was given lizzeth-op cefazolin and subsequently started on vanc. OR culture shows pin-point growth, reincubating. Recommendations: -Discontinued ceftriaxone -Stopped vancomycin and started daptomycin 400 mg IV q24h for ease of dosing on discharge. Ordered baseline CK to be drawn today. -Note that if daptomycin is not an option for discharge due to coverage issues, could alternatively use cefazolin 6 g continuous infusion over 24 hours daily, administered via elastomeric pump. -Can continue adjunctive rifampin 300 mg PO BID (although data on this is limited, and if pt is unable to tolerate this as outpatient, can discontinue) -Due to prosthetic joint infection with retained hardware, would plan for 6 weeks of IV antibiotics plus PO rifampin through 02/15/23, followed by oral antibiotic suppression with doxycycline 100 mg PO BID for at least 1 year. -Check weekly CBC with diff, CMP, and CK (if on dapto) to monitor for toxicity while on IV antibiotics. Will sign off. Please page [facility] with further questions. Admission and Anticipated Discharge Date Admission Date: January 05, 2023 Subjective This patient recommendation is based on a telemedicine consult request which was completed asynchronously through chart review and information provided by the primary physician. The patient was not seen or examined today. The evaluation is consultative in nature and all patient care and treatment decisions can either be accepted or rejected by the patient's primary hospital-based treating physici an using their own independent medical judgment for their patient. Time Spent Reviewing Chart: 21 - 30 minutes OR tissue culture growing coag neg Staph Review of System pt not seen Physical Exam Physical Exam: pt not seen Results & Data Vital Signs (Past 12 Hours) Vital Signs Temp Pulse Resp BP Pulse Ox O2 Del Method 01/09/23 07:35 Room Air 01/09/23 07:08 36.3 C L 62 15 147/81 H 96 Room Air Laboratory Results BMP 01/09/23 06:27 Creatinine 1.26 Medications Administered Current Inpatient Medications Acetaminophen (Acetaminophen 500 Mg Tab) 1,000 mg PO Q8 ANGEL Stop: 02/04/23 21:59 Last Admin: 01/09/23 06:04 Dose: 1,000 mg Albuterol (Albuterol Hfa 8 Gm Inhaler) 2 puffs INH Q6H PRN PRN Reason: shortness of breath or wheezin Stop: 02/04/23 16:27 Aspirin (Aspirin 81 Mg Ectab) 81 mg PO BID [facility] Stop: 02/04/23 20:59 Last Admin: 01/09/23 09:01 Dose: 81 mg Bisacodyl (Bisacodyl 10 Mg Supp) 10 mg [place] DAILY PRN PRN Reason: Constipation Stop: 02/04/23 16:27 Docusate Sodium (Docusate Sodium 100 Mg Cap) 100 mg PO BID [facility] Stop: 02/04/23 20:59 Last Admin: 01/09/23 09:01 Dose: 100 mg Ezetimibe (Ezetimibe 10 Mg Tablet) 10 mg PO QAM [facility] Stop: 02/05/23 08:59 Last Admin: 01/09/23 09:01 Dose: 10 mg Heparin Sodium (Beef Lung) (Heparin 10 Unit/Ml 5 Ml Flush) 5 ml FLUSH PRN PRN PRN Reason: Flush Stop: 02/07/23 16:07 Last Admin: 01/09/23 02:53 Dose: 5 ml Hydromorphone HCl (Hydromorphone Inj 0.5 Mg/0.5 Ml Syr) 0.5 mg IV Q4H PRN PRN Reason: Pain or Pre PT Stop: 01/19/23 16:27 Ceftriaxone Sodium 2,000 mg/ (Dextrose) 70 mls @ 100 mls/hr IV Q24H [facility]; Protocol Stop: 02/17/23 12:59 Last Infusion: 01/08/23 14:52 Dose: Infused Vancomycin HCl 1,000 mg/ (Sodium Chloride) 270 mls @ 200 mls/hr IV Q12H [facility] Stop: 02/19/23 13:29 Last Infusion: 01/09/23 02:55 Dose: Infused Lisinopril (Lisinopril 5 Mg Tab) 5 mg PO QAM [facility] Stop: 02/05/23 08:59 Last Admin: 01/09/23 09:01 Dose: 5 mg Magnesium Hydroxide (Magnesium Hydroxide Susp 30 Ml Udc) 30 ml PO Q6H PRN PRN Reason: Constipation Stop: 02/04/23 16:27 Metoclopramide HCl (Metoclopramide Hcl Inj 5 Mg/Ml 2 Ml Vial) 10 mg IV Q6H PRN PRN Reason: Nausea And Vomiting Stop: 02/04/23 16:27 Metoprolol Succinate (Metoprolol Succ 50mg Ext Rel Tab) 50 mg PO QAM [facility] Stop: 02/05/23 08:59 Last Admin: 01/09/23 09:01 Dose: 50 mg Miscellaneous Information (Vancomycin Consult Active) 1 each N/A UD PRN PRN Reason: Consult Stop: 02/04/23 16:27 Multivitamins (Multivitamin Tab) 1 tab PO QAM [facility] Stop: 02/05/23 08:59 Last Admin: 01/09/23 09:01 Dose: 1 tab Naloxone HCl (Naloxone Hcl 0.4 Mg/1 Ml Vial/Carp) 0.1 mg IV Q5M PRN PRN Reason: Oversedation/Resp Depression Stop: 02/04/23 16:27 Nitroglycerin (Nitroglycerin Sl 0.4 Mg/Tab Tab) 0.4 mg SL UD PRN PRN Reason: Chest Pain Stop: 02/04/23 16:27 Ondansetron HCl (Ondansetron Inj 2 Mg/Ml 2 Ml Vial) 4 mg IV Q6H PRN PRN Reason: Nausea And Vomiting Stop: 02/04/23 16:27 Last Admin: 01/07/23 08:32 Dose: 4 mg Oxycodone HCl (Oxycodone Hcl Ir 5 Mg Tab (Immediate Release)) 5 - 10 mg PO Q4H PRN PRN Reason: Pain or Pre PT Stop: 01/19/23 16:27 Last Admin: 01/08/23 20:57 Dose: 10 mg Pantoprazole Sodium (Pantoprazole 40 Mg Tab) 40 mg PO QAM [facility] Stop: 02/07/23 08:59 Last Admin: 01/09/23 09:01 Dose: 40 mg Rifampin (Rifampin 300 Mg Capsule) 300 mg PO BID [facility] Stop: 02/19/23 09:29 Last Admin: 01/09/23 09:01 Dose: 300 mg Sennosides (Senna 8.6 Mg Tab) 17.2 mg PO HS [facility] Stop: 02/04/23 20:59 Last Admin: 01/08/23 20:56 Dose: 17.2 mg
[2023-01-09] MEDS ORDERED: DAPTOmycin 400 MG in SYRINGE 0 ML IV SCH (09:30)
--- NOTE | 2023-01-09 13:51 | Discharge Summary ---
Date of Service January 09, 2023 Principal Diagnosis Same as "Discharge Diagnosis" noted below under Discharge Instructions. Discharge Exam On physical examination of the right knee, the dressing is clean and dry. His leg is out full extension. He is neurovascular intact.. Discharge Data Consultations 01/05/23 16:28 Consult Hospitalist Routine Consult Infectious Diseases Routine 01/05/23 17:13 Consult Hospitalist Routine Procedures Performed Operation Date: 01/05/23 13:00 Actual Procedures p Poly Exchange of Right Total Knee Arthroplasty(Right) - Joshua Andrew DO s Open Irrigation and Debridement,(Right) - Joshua Andrew DO Ordered Studies 01/05/23 05:00 US - OR guided needle placemen Routine Hospital Course (1) Infected prosthetic knee joint: On January 05, 2023 Ray arrived at [facility] and underwent an I&D of his right knee without complication. Postoperatively he was started on vancomycin. He was transferred to the general orthopedic floors. He was seen by the hospitalist and infectious disease the following day. Ceftriaxone was added to the vancomycin. Initial cultures were negative and blood cultures were obtained. On postop day #2 the cultures were still negative. He was on the ceftriaxone and the vancomycin. Blood cultures were negative as well. On postop day #3 the tissue cultures grew out some coag negative staph. He was started on rifampin. He was continued with the ceftriaxone and the vancomycin. He has not was not having much pain at all in the knee. He is doing very well. He felt much better than he did when he came to the hospital originally. On postop day #4 he was seen by infectious disease again. He was started on daptomycin every 24 hours. He was told to continue the rifampin. A PICC line was placed. He was then discharged home. He will follow-up with orthopedics in 2 weeks. PG Care Time/CCT Total # of Minutes Spent Total Time Spent with Patient: Total time spent is greater than 50% in coordination of care (as documented) at patient's floor/unit and/or counseling patient: Discharge Plan Discharge Items Patient Disposition: Home - Home Health Services Reason For Visit: Infection Right Total knee Arthroplasty Discharge Diagnosis: same as above Activity: Per Instructions section Non-emergency contact: Surgeon Call non-emergency contact if: your temperature is above 101.5, your wound has increased redness and your wound has increased drainage Follow-up/Referrals: Leonard Nicolas CRNP [Primary Care Provider] - 01/19/23 11:40 am Joshua Zelaya PA-C [Physician Ship Boss] - 01/18/23 8:50 am Suzie,Fax [Non-Staff] - Diet: Regular Addtl Attending Provider Instructions: Activity and Therapy Recommendations: * If you are using [facility] then therapy will be provided at your home until they feel you have accomplished all of your goals. * If you are using [facility] then Physical Therapy will be provided until they feel you are ready to start Outpatient Physical Therapy. * If you are not using home therapy then Outpatient Physical Therapy should start about 3-5 days from your day of surgery. Therapy will last about 6-10 weeks * It is important not to put a pillow under your knee when you are relaxing or sleeping. It is just as important to make sure you are getting your knee perfectly straight as it is to regain your knee bend. * You were shown a series of exercises in the hospital. Do these exercises three times each day including the exercises you were shown in physical therapy. * Get up and walk several times each day. For the first four weeks, try not to stand or walk for more than one hour at a time. If you do stand or walk for more than one hour, you will not hurt anything, but your leg will likely swell. * As you feel comfortable, you may change from the walker or crutches to a cane and then to independent walking. Medications: * Narcotic You will likely be sent home from the hospital with a prescription for the narcotic pain medication that worked best throughout your stay. * Aspirin Most patients will be required to take Aspirin 81mg twice a day for 6 weeks after surgery. This is obtained [id number] and a prescription is not necessary. * Other medications may be prescribed for specific circumstances. If you have any questions, please call the office at . * Resume previous home medications unless otherwise instructed * * Take the Rifampin 300mg twice daily every day. * * Take the daptomycin 400mg IV once daily every day * * Will get weekly blood draws for CBC and CK to monitor kidneys during the treatment TEDs/Elastic Stockings: The white elastic stockings help limit swelling and prevent blood clots from forming in your legs.~ The more you wear them, the more they work. Wear them for six weeks. Dressing Care: The dressing can be changed after physical therapy on postop day #1. Daily dry dressing changes for a few days, especially if the incision is still draining some. If the incision is not draining then you may leave the asmita open to air. If there is a little bit of drainage or if the asmita are getting stuck on your clothing then cover the incision with a dry dressing. The asmita will be removed at your 2 week follow-up appointment. Showering: You may shower 5 days from the day of surgery as long as the incision is no longer draining. You may shower with the asmita exposed. Let soapy water run over the asmita and pat them dry. Do not scrub or soak the incision. Things To Watch For: * Drainage from the incision site that occurs more than one week after your surgery. * Increased redness at the incision site. * Fever above 102 degrees Fahrenheit. * Unusual chest pain or shortness of breath. * Call [facility] at with any of the above problems Follow-Up Visit: Follow-up with Dr. Andrew's PA (Joshua Zelaya) 2-3 weeks after your day of surgery. He will remove your asmita and answer any questions. If you have any additional questions or concerns, Dr Andrew is usually in the office at the same time and will be available An appointment was probably scheduled when you signed-up for surgery in the office. If you have any questions call Office Instructions: More detailed instructions as well as Frequently Asked Questions were provided in a folder by our office when you signed-up for surgery. Please review these instructions when you get home. If you have any further questions or concerns, please feel free to call the office at [phone] Pending Studies at Discharge: No Stand-Alone Forms: My [facility], Smoking Cessation Medications and DC Order Prescriptions: New rifampin 300 mg Capsule 300 mg PO BID Qty: 85 0RF aspirin 81 mg tablet,delayed release (DR/EC) 81 mg PO BID Qty: 60 0RF oxycodone-acetaminophen [Percocet] 5-325 mg tablet 1 tab PO Q6H PRN (Reason: pain) Qty: 20 0RF Continued albuterol sulfate [Ventolin HFA] 90 mcg/actuation HFA aerosol inhaler 2 puffs INH Q6H PRN (Reason: shortness of breath or wheezing) Qty: 6.7 2RF ezetimibe [Zetia] 10 mg tablet 10 mg PO QAM Qty: 90 1RF nitroglycerin [Nitrostat] 0.4 mg Tablet, Sublingual 0.4 mg Sublingual UD PRN (Reason: Chest Pain ) lisinopril 5 mg tablet 5 mg PO QAM Repatha Syringe 140 mg/mL syringe 140 mg subcut Q14D Rx Instructions: Subcutaneously inject 140 mg (1 ml) every 2 weeks; meloxicam 15 mg Tablet 15 mg PO QAM aspirin [Vandana Low Dose Aspirin] 81 mg tablet,delayed release (DR/EC) 81 mg PO QAM metoprolol succinate 50 mg Tablet Extended Release 24 Hr 50 mg PO QAM Discontinued tramadol 50 mg tablet 50 mg PO Q8H PRN (Reason: pain) Qty: 30 0RF Discharge Orders: Discharge Order (Routine); Ordered 01/09/23 Ordered By: Joshua Larson/Other Patient Handouts: Central Venous Access Device, Caring for Your Central Vein Access, PICC Admission Data Admit Date/Time: 01/05/23 14:12 Attending Provider: Joshua Andrew Admit Provider: Joshua Andrew Primary Care Provider: Leonard Nicolas Other Providers: Grabiel Lockett ; Leann Meneses ; Chris Ambrosio ; Elmer Alva ; Chacho Toussaint ; Dhaval Peña ; Akil Ruth ; Kassi Phelps ; Puja Ahumada ; Shadi Gallegos ; Juana Acosta ; Reyes Graf ; Sofia Espana ; Gurdeep Richards ; Pacheco Teresa ; Leann Claudio ; Kate Foster ; Weston Bey ; Chris Luo ; Roberta Hendrix ; Servando Sharma ; Haroon Malloy ; Manpreet Bourgeois ; Francisca Gibson ; Rosie Monzon ; Luis Freitas ; Philomena Ascencio ; Dillan Ty ; Elmer Yan ; Chacho Sarah ; Beronica Soares ; Isra Yeung ; Anjana Sharpe ; Andreia Appiah ; Dianne Sim ; Fouzia Carreon ; Tammy Deluna ; Dionicio Velasquez ; Julissa Stanford ; Joshua Andrew Other Interventions: Discharge Summary Assessment (RN) Last Done: 01/09/23 11:39
[2023-01-10] MEDS ORDERED: VANCOMYCIN LEVEL ONE (13:00)
== END 2023-01-09 12:05 | disposition home health service (06) | DRG 464 ==
LOC: ASU 10:27 → 3E 14:12

== ENCOUNTER 2025-01-14 13:45 | Inpatient (IN) ==
--- NOTE | 2025-01-14 14:37 | XRay Report ---
SINGLE VIEW CHEST CLINICAL HISTORY: Pneumonia FINDINGS: 2 AP, portable, upright chest radiographs are compared to study dated 11/16/2023 and correlat ed with chest CT dated 03/06/2023. The patient is status post midline sternotomy. The top normal for p rojection noting atherosclerotic calcification of the thoracic aorta. Emphysema and chronic interstit ial thickening is similar to previous. No airspace consolidation or pleural effusion is identified. T here are calcified granulomas at the right lung base. No pneumothorax is seen. The skeletal structure s are osteopenic. The bony thorax is grossly intact. Cholecystectomy clips are seen in the right uppe r quadrant. IMPRESSION: Emphysematous change with no acute cardiopulmonary abnormality identified. ACT 112: Negative or not required by law. Electronically signed by: Akil Contreras M.D. 01/14/2025 2:35 PM
[2025-01-14 14:44] LABS: Alanine Aminotransferase 26.0 U/L (7-52); Albumin Globulin Ratio 1.4 (0.9-2); Alkaline Phosphatase 104.0 U/L (34-104); Anion Gap 5.0 (3-11); Bilirubin,Total 0.4 mg/dl (0.2-1.0); Blood Urea Nitrogen 43.0 mg/dl (6-23); Calcium 8.8 mg/dl (8.6-10.3); Carbon Dioxide 26.0 mmol/L (21-32); Chloride 105.0 mmol/L (98-107); Creatinine Clr Calc Pharmacy 25.8 ml/min; Globulin 2.7 gm/dl (2.5-4.0); Glucose 103.0 mg/dl (70-99(Fasting)); Potassium 5.2 mmol/L (3.5-5.1); Sodium 136.0 mmol/L (136-145); Total Protein 6.4 gm/dl (6.0-8.3)
--- NOTE | 2025-01-14 14:55 | Emergency Department Note ---
Impression & Plan NAM (acute kidney injury), Hyperkalemia, Hypertension, HFrEF (heart failure with reduced ejection fraction), Leukocytosis ED Provider Note NAME: REBEL PORTILLO Sr AGE: 69 SEX: M : 1955 ARRIVES VIA: Walk-In INFORMANT: Patient, ED PROVIDER(S): Marty Ball MD CHIEF COMPLAINT: Abnormal blood work HPI: This is a 69-year-old male presenting for abnormal blood work. Patient was recently at an outside hospital where he was admitted for pneumonia, CHF. Patient at that time was on a ventilator and was discharged with a LifeVest due to low EF below 20%. He reports feeling weak the past 3 to 4 days. He reports shortness of breath with exertion. He reports no current chest pain. He reports no leg swelling. No history of blood clots. He reports he was sent in because his blood work showed increasing white count and creatinine. ROS: See above HPI for pertinent positives & negatives. A total of 10 systems reviewed and were otherwise negative. PAST MEDICAL HISTORY: See Below PAST SURGICAL HISTORY: See Below FAMILY HISTORY: See Below SOCIAL HISTORY: See Below HOME MEDICATIONS: See Below ALLERGIES: See Below VITALS: See Below PHYSICAL EXAMINATION: General: resting comfortably in no acute distress Head: Normocephalic and atraumatic Eyes: Normal inspection, extraocular muscles intact Ear, nose, throat: Normal external exam Neck: Normal range of motion Respiratory: lungs clear to auscultation bilaterally Cardiovascular: Regular rate/rhythm, no murmur GI: soft, nontender, no guarding or rebound Extremities: nontender, moves all extremities Neuro: The patient awake and alert, appropriately conversive, no focal deficits, symmetric faces Skin: Warm, dry, and intact MEDICAL DECISION MAKING: This is a 69-year-old male present for abnormal blood work. Patient medically complex with recent pneumonia, CHF admission requiring ventilator, LifeVest, significant reduced EF below 20%. I am able to see blood work that does show leukocytosis up to 16 today with creatinine increased to 2.39. Previous baseline was 1.6-1.7. - Will do screening blood work, EKG, lactic acid level, blood cultures. - Chest Xray independently interpreted by me showing no pneumothorax, focal opacity, or pleural effusions. -ECG independently interpreted by me with normal sinus rhythm, rate of 83, normal axis,, lateral T wave inversions, normal QRS, normal QTc, no ST segment elevations consistent with STEMI criteria lateral T wave inversions - At this time, we will admit the patient due to his significant changes in his lab results including leukocytosis and creatinine elevation. -Care discussed with Jose Maria any hospitalist team for admission Differential diagnosis: Sepsis, cardiorenal syndrome, NAM, fluid overload, CHF Independent History obtained from: Diagnostics interpreted by me: ECG: See above Cardiac Monitoring: An order was placed for continuous cardiac monitoring. The monitor shows a rate of 78 with sinus rhythm. Past Med/Surg History Problem List (Updated 01/14/25 @ 21:58 by Marty Ball MD) Leukocytosis (Acute) NAM (acute kidney injury) (Acute) Prostate cancer Hypertension (Acute) Hyperkalemia (Acute) Hospital discharge follow-up Paroxysmal A-fib HFrEF (heart failure with reduced ejection fraction) (Acute) Acute kidney injury superimposed on stage 3a chronic kidney disease Prostate cancer Elevated PSA Chronic kidney disease S/P CABG x 5 Nodular radiologic density Atrophy of muscle of right lower leg Mitral regurgitation Ischemic cardiomyopathy Tobacco abuse historically smoked between 1/2 and 1 pack per day Hypertension NSTEMI (non-ST elevated myocardial infarction) CKD (chronic kidney disease) stage 3, GFR 30-59 ml/min Insomnia Depression controlled, stable per pt Anxiety Compression fracture of L1 lumbar vertebra History of colon polyps Intermittent claudication Sensorineural hearing loss (SNHL) of right ear with restricted hearing of left ear Headache Status post revision of total replacement of right knee Revision TKA with removal of hardware and conversion to PRK femoral implant (08/22/22): LMA#4.0, atraumatic + PNB at [facility] Infected prosthetic knee joint Bipolar disorder Chronic obstructive pulmonary disease, unspecified Coronary artery disease First diagonal and RCA PCI (2012, 2014) Cardiac Cath 2018 (OYSTER HARVESTER of distal circumflex) NSTEMI 03/06/23 s/p Mid RCA stent Dyslipidemia (high LDL; low HDL) Heart attack Total x 4 (, and 03/06/23) [place] [facility] Restless legs syndrome Medical History APONTE (dyspnea on exertion) Anxiety and depression History of COVID-19 Degenerative disc disease Chronic back pain Post traumatic stress disorder Hx of rheumatic fever Closed compression fracture of L3 vertebra Surgical History History of artificial joint Stented coronary artery Status post right knee replacement (~08/2021) Status post medial meniscectomy of knee S/P coronary artery stent placement History of total right knee replacement History of arthroscopy History of cochlear implant History of heart artery stent History of cholecystectomy History of colonoscopy History of cardiac cath History of laminectomy History of back surgery Family History Other Adopted Family history not known due to adoption Social History Smoking Status: Current every day smoker Tobacco Type: Cigarettes Age Started Using Tobacco: 13; Age Quit Using Tobacco: 69; packs per day: 0.5; Cigarettes Per Day: 10 cigs/day; Second Hand Exposure: No; Do You Dip or Chew Tobacco: No; Hx Alcohol Use: No Hx Substance Use: No Preferred Language: Nauruan Communication Ability: Effective Visual Impairment: No Limitations Hearing Ability: Use of Hearing Aid Line Technician Required: No Beliefs That Will Affect Care: None marital status: Current Living Situation: Spouse and Family Current Living Situation Comment: Lives with , daughter and 2 grandkids current occupational status: retired How many Children do You have: 4 Feels Safe at Home: Yes Childhood Exposure to Second-Hand Smoke: Yes Diet: regular caffeine: Yes during the past year weight has: remained stable Dental Care, Regularly: No Physical Activity Frequency: Daily Seatbelt Use: always Sunscreen Use: No Assistive Devices: None Allergies Allergies Allergy/AdvReac Type Severity Reaction Status Date / Time ibuprofen [From Motrin] Allergy Intermediate GI Upset, Verified 01/14/25 08:50 diffuse rash Home Meds Home Medications Medication Instructions Recorded Confirmed arformoterol 15 mcg/2 mL solution 2 ml inhalation BID 08/08/24 01/14/25 for nebulization revefenacin 175 mcg/3 mL solution 175 mcg inhalation DAILY 08/08/24 01/14/25 for nebulization (Yupelri) apixaban 5 mg tablet (Eliquis) 5 mg PO BID 01/07/25 01/14/25 aspirin 81 mg tablet,delayed 81 mg PO DAILY 01/07/25 01/14/25 release (Adult Low Dose Aspirin) budesonide 0.25 mg/2 mL suspension 0.25 mg inhalation BID 01/07/25 01/14/25 for nebulization sacubitril 24 mg-valsartan 26 mg 1 tab PO BID 01/07/25 01/14/25 tablet (Entresto) Previous Rx's Medication Instructions Recorded albuterol sulfate 90 mcg/actuation 2 puff inhalation Q6H PRN 03/15/23 aerosol inhaler (Ventolin HFA) shortness of breath or wheezing #6.7 grams carvedilol 12.5 mg tablet 12.5 mg PO BID 90 days #180 tabs 08/26/24 hydralazine 25 mg tablet 25 mg PO TID 90 days #270 tabs 08/26/24 magnesium oxide 400 mg PO DAILY #90 caps 08/26/24 multivitamin with minerals 1 cap PO DAILY #90 caps 08/26/24 lisinopril 10 mg tablet 10 mg PO DAILY #90 tabs 10/28/24 evolocumab 140 mg/mL subcutaneous 140 mg subcut .Every 2 weeks #2 mL 12/04/24 pen injector ([employer]) atorvastatin 80 mg tablet 80 mg PO DAILY #30 tabs 01/07/25 triamterene 37.5 1 cap PO DAILY #30 caps 01/07/25 mg-hydrochlorothiazide 25 mg capsule Results & Data (ED) Vital Signs Vital Signs - 24 hr 01/14/25 13:55 01/14/25 14:15 01/14/25 14:38 Temperature 36.8 C Temperature Source Temporal Artery Scan Pulse Rate 100 H 91 H Pulse Rate [Apical] 83 Pulse Rhythm [Apical] Pulse Strength [Apical] Respiratory Rate 18 20 Respiratory Effort / Characteristics Non-Labored Spontaneous Non-Labored Respiratory Depth Normal Normal Respiratory Pattern Blood Pressure 111/67 Blood Pressure [Right Arm] 121/79 Blood Pressure Mean 81 Blood Pressure Mean [Right Arm] 93 Blood Pressure Position Sitting Blood Pressure Position [Right Arm] Pulse Oximetry 98 98 Oxygen Delivery Method Room Air Room Air Sepsis Recent Fever Within 48 Hours No Sepsis New/Unexplained Change in Mental Status No Sepsis Action Taken by Nursing No Action Required 01/14/25 16:16 01/14/25 17:22 08/05/25 17:43 Temperature Temperature Source Pulse Rate 74 Pulse Rate [Apical] 80 77 Pulse Rhythm [Apical] Regular Pulse Strength [Apical] Normal Respiratory Rate 20 19 Respiratory Effort / Characteristics Non-Labored Non-Labored Spontaneous Respiratory Depth Normal Normal Respiratory Pattern Regular Blood Pressure Blood Pressure [Right Arm] 181/89 H 141/89 H Blood Pressure Mean Blood Pressure Mean [Right Arm] 119 106 Blood Pressure Position Blood Pressure Position [Right Arm] Sitting Pulse Oximetry 99 98 Oxygen Delivery Method Room Air Room Air Sepsis Recent Fever Within 48 Hours Sepsis New/Unexplained Change in Mental Status Sepsis Action Taken by Nursing Laboratory Data 01/14/25 15:09 01/14/25 14:10 Lab Results 01/14/25 01/14/25 01/14/25 Range/Units 14:10 14:16 15:09 WBC 13.00 H (4.8-10.8) K/ul RBC 4.46 L (4.70-6.10) M/uL Hgb 13.0 L (14.0-18.0) g/dl POC Hgb 14.3 (14.0-18.0) g/dl Hct 38.9 L (42.0-52.0) % POC Hct 42 (42-52) % MCV 87.2 (80.0-100.0) fL MCH 29.1 (25.0-34.0) pg MCHC 33.4 (32.0-36.0) g/dL RDW Std Deviation 55.9 H (36.4-46.3) fL RDW Coeff of Wes 17.4 H (11.5-14.5) % Plt Count 256 (130-400) K/uL MPV 8.8 L (9.4-12.4) fL Immature Gran % (Auto) 1.6 % Neut % (Auto) 79.5 % Lymph % (Auto) 9.5 % Gilchrist % (Auto) 7.7 % Eos % (Auto) 1.4 % Baso % (Auto) 0.3 % Neut # (Auto) 10.33 H (1.40-6.50) K/uL Lymph # (Auto) 1.24 (1.20-3.40) K/uL Gilchrist # (Auto) 1.00 H (0.11-0.59) K/uL Eos # (Auto) 0.18 (0.00-0.50) K/uL Baso # (Auto) 0.04 (0.00-0.20) K/uL Immature Gran # (Auto) 0.21 H (0.01-0.20) K/uL POC Sodium 136 (135-144) mmol/L Sodium 136 (136-145) mmol/L POC Potassium 5.2 H (3.3-5.0) mmol/L Potassium 5.2 H (3.5-5.1) mmol/L POC Chloride 105 (101-112) mmol/L Chloride 105 (98-107) mmol/L Carbon Dioxide 26 (21-32) mmol/L POC Total CO2 23 L (24-31) mmol/L Anion Gap 5 (3-11) POC Anion Gap 15.0 L (16-25) mmol/L POC BUN 41 H (7-18) mg/dl BUN 43 H (6-23) mg/dl Creatinine 2.35 H (0.6-1.4) mg/dl POC Creatinine 2.5 H (0.6-1.3) mg/dl Est Cr Clr Drug Dosing 25.8 ml/min eGFR 29.22 BUN/Creatinine Ratio 18.3 (10-20) Glucose 103 H (70-99(Fasting)) mg/dl POC Glucose (other) 100 H (70-99) mg/dl Lactate 0.8 (0.4-2.0) mmol/L Calcium 8.8 (8.6-10.3) mg/dl POC Ioniz Calcium Rhys 1.13 (1.12-1.32) mmol/l Total Bilirubin 0.4 (0.2-1.0) mg/dl AST 23 (13-39) U/L ALT 26 (7-52) U/L Alkaline Phosphatase 104 (34-104) U/L Total Protein 6.4 (6.0-8.3) gm/dl Albumin 3.7 (3.4-5.0) gm/dl Globulin 2.7 (2.5-4.0) gm/dl Albumin/Globulin Ratio 1.4 (0.9-2) Imaging Data Radiologist's Impression: Chest X-Ray 01/14/25 14:07 SINGLE VIEW CHEST CLINICAL HISTORY: Pneumonia FINDINGS: 2 AP, portable, upright chest radiographs are compared to study dated 11/16/2023 and correlated with chest CT dated 03/06/2023. The patient is status post midline sternotomy. The top normal for projection noting atherosclerotic calcification of the thoracic aorta. Emphysema and chronic interstitial thickening is similar to previous. No airspace consolidation or pleural effusion is identified. There are calcified granulomas at the right lung base. No pneumothorax is seen. The skeletal structures are osteopenic. The bony thorax is grossly intact. Cholecystectomy clips are seen in the right upper quadrant. IMPRESSION: Emphysematous change with no acute cardiopulmonary abnormality identified. ACT 112: Negative or not required by law. Electronically signed by: Akil Contreras M.D. 01/14/2025 2:35 PM Discharge Plan Visit Data Chief Complaint: Abnormal Labs/Diagnostic Testing Stated Complaint: ABN LABS, DOC REFFERRED ED Provider: Marty Ball Discharge Problem: NAM (acute kidney injury), Hyperkalemia, Hypertension, HFrEF (heart failure with reduced ejection fraction), Leukocytosis Patient Disposition: Admitted As Inpatient Condition: Fair Discharge Instructions Interventions: ED Discharge Assessment Last Done: 01/14/25 20:38
[2025-01-14 15:28] LABS: Hematocrit (blood only) 38.9 % (42.0-52.0); Hemoglobin 13.0 g/dl (14.0-18.0); Immature Granulocytes # (auto) 0.21 K/uL (0.01-0.20); Immature Granulocytes % (auto) 1.6 %; Mean Corpuscular Hemoglobin 29.1 pg (25.0-34.0); Mean Corpuscular Volume 87.2 fL (80.0-100.0); Platelet Count 256 K/uL (130-400); RDW Standard Deviation 55.9 fL (36.4-46.3); Red Blood Count 4.46 M/uL (4.70-6.10); White Blood Count 13.00 K/ul (4.8-10.8)
--- NOTE | 2025-01-14 17:46 | History & Physical Report ---
Date of Service January 14, 2025 Assessment & Plan (1) Acute kidney injury superimposed on stage 3a chronic kidney disease: Plan: -Acute elevation in kidney readings with Cr of 2.39 and BUN 49, and a Potassium of 6 mmol/ in the setting CKD type 3. Baseline Cr ranging between 1.3-1.6 -During last hospital stay 2 weeks ago for pneumonia, cardiology findings of decreased ejection fraction to 20%, pushed forward medication adjustments with overlapping function - On arrival to ED, Pt taking Lisinopril 10 mg, Carvedilol 12.5 mg, Entresto 24- 26 mg, and Triamterene 37.5-25 mg 1 cap. Suspect overlapping use of SCOTT & ARB, is likely cause of NAM - At this time we will hold the Lisinopril and Triamterene -In addition, we will reduce Eliquis dosing to 2.5 mg to adjust for renal function - pt follows with nephrology at [facility], has been CKD stage 3 since 2021 (2) HFrEF (heart failure with reduced ejection fraction): Plan: -Status post CABG x 5 in 07/25/24 -Heart Ejection fraction has reduced from 40% to 20%, not in acute exacerbation -TTE taken today, awaiting results -placed on Entresto during last hospital visit for pneumonia (two weeks ago) due to Heart Ejection Fraction at 20%, holding as as mentioned above Continued garbing with LifeVest Defibrillator (3) Paroxysmal A-fib: Plan: -Chronic -prior Amiodarone -- but discontinued Continued Stroke & DVT prophylaxis (while in hospital) reducing Eliquis dosing to 2.5 mg, as mentioned above (4) Hyperkalemia: Plan: -labs in ER 6.0, on admission 5.2 mmol/L -Potassium elevated due to suspected NAM -EKG reviewed no evidence peak T waves -Monitor and review for tomorrow (5) Hypertension: Plan: -On arrival pt's bp is 181/89, now 123/66 -Hydralazine medication continued at 25 mg po tab, Lisinopril discontinued due to symptoms of NAM -Hydralzine medication to be ordered prn upon recheck if BP elevation persists (6) Prostate cancer: Plan: -recently diagnosed -Not taking any medications -Continued follow up outpt (7) CAD (coronary artery disease): Plan: -hx of ischemic cardiomyopathy -Remains stable on Statin & Aspirin, Lisinopril held as mentioned above, would continue to hold until after discharge History of Present Illness Primary Care Provider: HOLA Townsend Pt is 69 y/o male presenting to the ED with abnormal lab values after an a ppointment with his primary care and feelings of fatigue and general unwellness. PMH is extensive including s/p CABG, HFrEF, Paroxysmal A. Fib., CKD Stage 3, HTN, Tobacco abuse, Dyslipidemia, COPD, Intermittent Claudication. At PCP, pt complained of hands being cold to touch and at times tingling, labs were ordered and showed Cr. of 2.39 and BUN 49. In response PCP, sent pt to ED. At ED, pt reported SOB with exertion, but no chest pain or leg swelling. He has no history of blood clots. On admission, pt is AOx3, and stable, and states verbally he is doing okay. Labs show Cr of 2.39 and BUN 49, and a Potassium of 6 mmol/L. WBC count is also elevated at 13 K/ul, with no signs or symptoms of fever or infection (fever, chills or myalgia) In July of this year, pt had a CABG procedure performed, from which he indicated he recovered very well. Approximately 1 month later, in the month of August, patient was hospitalized for pneumonia. Approximately, 2 weeks ago, pt was hospitalized again for pneumonia at which point he was intubated. At last hospitalization for pneumonia, Pt Ejection fraction noted at 20%, cardiology consult added Entresto, in addition to regular medications of lisinopril, carvedilol, Triamterene Allergies Allergy/AdvReac Type Severity Reaction Status Date / Time ibuprofen [From Motrin] Allergy Intermediate GI Upset, Verified 01/14/25 08:50 diffuse rash Home Medications Medication Instructions Recorded Confirmed Type albuterol sulfate 90 mcg/actuation 2 puff inhalation Q6H PRN 03/15/23 01/14/25 Rx aerosol inhaler (Ventolin HFA) shortness of breath or wheezing #6.7 grams arformoterol 15 mcg/2 mL solution 2 ml inhalation BID 08/08/24 01/14/25 History for nebulization revefenacin 175 mcg/3 mL solution 175 mcg inhalation DAILY 08/08/24 01/14/25 History for nebulization (Yupelri) carvedilol 12.5 mg tablet 12.5 mg PO BID 90 days #180 tabs 08/26/24 01/14/25 Rx hydralazine 25 mg tablet 25 mg PO TID 90 days #270 tabs 08/26/24 01/14/25 Rx magnesium oxide 400 mg PO DAILY #90 caps 08/26/24 01/14/25 Rx multivitamin with minerals 1 cap PO DAILY #90 caps 08/26/24 01/14/25 Rx evolocumab 140 mg/mL subcutaneous 140 mg subcut .Every 2 weeks #2 mL 12/04/24 01/14/25 Rx pen injector (Repatha SureClick) apixaban 5 mg tablet (Eliquis) 5 mg PO BID 01/07/25 01/14/25 History aspirin 81 mg tablet,delayed 81 mg PO DAILY 01/07/25 01/14/25 History release (Adult Low Dose Aspirin) atorvastatin 80 mg tablet 80 mg PO DAILY #30 tabs 01/07/25 01/14/25 Rx budesonide 0.25 mg/2 mL suspension 0.25 mg inhalation BID 01/07/25 01/14/25 History for nebulization sacubitril 24 mg-valsartan 26 mg 1 tab PO BID 01/07/25 01/14/25 History tablet (Entresto) triamterene 37.5 1 cap PO DAILY #30 caps 01/07/25 01/14/25 Rx mg-hydrochlorothiazide 25 mg capsule apixaban 2.5 mg tablet (Eliquis) 2.5 mg PO BID #60 tabs 01/15/25 Rx Past Med/Surg History Problem List (Updated 01/15/25 @ 09:20 by Kelli Garvin MD) CAD (coronary artery disease) Leukocytosis (Acute) NAM (acute kidney injury) (Acute) Prostate cancer Hypertension (Acute) Hyperkalemia (Acute) Hospital discharge follow-up Paroxysmal A-fib HFrEF (heart failure with reduced ejection fraction) (Acute) Acute kidney injury superimposed on stage 3a chronic kidney disease Prostate cancer Elevated PSA Chronic kidney disease S/P CABG x 5 Nodular radiologic density Atrophy of muscle of right lower leg Mitral regurgitation Ischemic cardiomyopathy Tobacco abuse historically smoked between 1/2 and 1 pack per day Hypertension NSTEMI (non-ST elevated myocardial infarction) CKD (chronic kidney disease) stage 3, GFR 30-59 ml/min Insomnia Depression controlled, stable per pt Anxiety Compression fracture of L1 lumbar vertebra History of colon polyps Intermittent claudication Sensorineural hearing loss (SNHL) of right ear with restricted hearing of left ear Headache Status post revision of total replacement of right knee Revision TKA with removal of hardware and conversion to PRK femoral implant (08/22/22): LMA#4.0, atraumatic + PNB at [facility] Infected prosthetic knee joint Bipolar disorder Chronic obstructive pulmonary disease, unspecified Coronary artery disease First diagonal and RCA PCI (2012, 2014) Cardiac Cath 2018 (COMMUNICATIONS STRATEGIST of distal circumflex) NSTEMI 03/06/23 s/p Mid RCA stent Dyslipidemia (high LDL; low HDL) Heart attack Total x 4 (, and 03/06/23) Follows with [facility] Restless legs syndrome Medical History APONTE (dyspnea on exertion) Anxiety and depression History of COVID-19 Degenerative disc disease Chronic back pain Post traumatic stress disorder Hx of rheumatic fever Closed compression fracture of L3 vertebra Surgical History History of artificial joint Stented coronary artery Status post right knee replacement (~08/2021) Status post medial meniscectomy of knee S/P coronary artery stent placement History of total right knee replacement History of arthroscopy History of cochlear implant History of heart artery stent History of cholecystectomy History of colonoscopy History of cardiac cath History of laminectomy History of back surgery Family History Other Adopted Family history not known due to adoption Social History Smoking Status: Former smoker Tobacco Type: Cigarettes Age Started Using Tobacco: 13; Age Quit Using Tobacco: 69; packs per day: 0.5; Cigarettes Per Day: 10 cigs/day; Second Hand Exposure: Yes; Do You Dip or Chew Tobacco: No; Hx Alcohol Use: No Hx Substance Use: No Preferred Language: French Communication Ability: Effective Visual Impairment: No Limitations Hearing Ability: Use of Hearing Aid Sales Stock Associate Required: No Beliefs That Will Affect Care: None marital status: Current Living Situation: Spouse and Family Current Living Situation Comment: Home with spouse, adult child, and grandchildren current occupational status: retired How many Children do You have: 4 Feels Safe at Home: Yes Childhood Exposure to Second-Hand Smoke: Yes Diet: regular caffeine: Yes during the past year weight has: remained stable Dental Care, Regularly: No Physical Activity Frequency: Daily Seatbelt Use: always Sunscreen Use: No Assistive Devices: Cane and Walker Review of Systems Review of Systems: All systems reviewed & are unremarkable except as noted in HPI & below Physical Exam Physical Exam: On Respiratory Auscultation, light rhonchi heard bilaterally in lower lobes Constitutional: WD/WN, vitals as above Eyes: PERRL, conjunctivae normal, anicteric sclerae ENMT: external ear and nose normal, oropharynx normal Neck: trachea midline, no thyromegaly Respiratory: normal respiratory effort, lungs clear to auscultation Cardiovascular: RRR, no murmur, no edema Chest (Breasts): normal inspection/palpation of breasts Gastrointestinal (Abdomen): normal bowel sounds, soft, nontender, no hepatospl enomegaly Musculoskeletal: no cyanosis or clubbing, extremities motor strength 5/5 Skin: no rashes, warm and dry Psychiatric: A+Ox3, euthymic affect Lymphatic: no cervical or axillary lymphadenopathy Results & Data Results & Data Vital Signs (Past 12 Hours) Vital Signs Temp Pulse Pulse Resp BP BP Pulse Ox 01/14/25 17:43 74 01/14/25 17:22 77 19 141/89 H 98 01/14/25 16:16 80 20 181/89 H 99 01/14/25 14:38 91 H 01/14/25 14:15 83 20 121/79 98 01/14/25 13:55 36.8 C 100 H 18 111/67 98 O2 Del Method 01/14/25 17:43 01/14/25 17:22 Room Air 01/14/25 16:16 Room Air 01/14/25 14:38 01/14/25 14:15 Room Air 01/14/25 13:55 Room Air Supervising Physician Co-Signing Physician Notes I personally examined the patient and verified pierre points of history and exam, discussed case, and agree with decision making and plan documented by Dr. Garvin. Patient is a 69-year-old male with complicated cardiac history including CAD with CABG x 5 (07/2024), HFrEF (EF 15-20% 01/02/25), ischemic/dilated cardiomyopathy on LifeVest, CKDIII, hypertension, hyperlipidemia, COPD, tobacco abuse, prostate cancer, OA with infected prosthesis, and anxiety/depression on admission for fatigue and shortness of breath and found to have abnormal renal function on labs ordered by PCP today. On exam patient appears comfortable, non diaphoretic, conjunctiva clear, mucosa moist, non-labored breathing, rhonchi bilateral lower lobes, heart with regular rate and rhythm, no murmur appreciated, bowel sounds present and no tenderness in the abdomen, lower extremities without edema. Recent hospitalization 01/02/2025 [facility] patient was intubated for acute respiratory failure in setting of right lower lobe pneumonia and found to have severely reduced ejection fraction, he was started on Entresto 24mg26 mg twice daily at discharge. Resident Activity Tracking Resident Involvement: Resident Care Provided Care Provided: Adult Hospital Medicine
[2025-01-14] MEDS ORDERED: ONDANSETRON INJ 2 MG/ML 2 ML VIAL IV PRN (20:56)
[2025-01-14] MEDS ORDERED: POLYETHYLENE (MIRALAX) 17 GM PACK PO PRN (20:56)
[2025-01-14] MEDS ORDERED: MELATONIN 3 MG TAB PO PRN (20:56)
[2025-01-14] MEDS ORDERED: ALBUTEROL HFA 8 GM INHALER INH PRN (20:56)
[2025-01-14] MEDS ORDERED: ACETAMINOPHEN 325 MG TAB PO PRN (20:56)
[2025-01-14] MEDS: VALSARTAN/SACUBITRIL 26/24MG TAB PO SCH (22:11)
[2025-01-14] MEDS: APIXABAN 2.5 MG TAB PO SCH (22:11)
[2025-01-14] MEDS: BUDESONIDE 0.25 MG/2 ML VIAL (PULMICORT) INH STA (22:15)
[2025-01-14] MEDS: FORMOTEROL 20 MCG/2 ML VIAL INH ONE (22:15)
[2025-01-14 22:57] LABS: Appearance Urine Clear (Clear); Bacteria Urine Automated None Seen (None Seen); Cast Urine Automated 0-2 /lpf (0-2); Epithelial Cell Urine Auto 0-2 /hpf (0-2); Glucose Urine UA Negative (Negative); RBC Urine Automated 0-2 /hpf (0-2); WBC Urine Automated 0-5 /hpf (0-5)
[2025-01-15 05:18] LABS: Hematocrit (blood only) 40.1 % (42.0-52.0); Hemoglobin 13.4 g/dl (14.0-18.0); Immature Granulocytes # (auto) 0.14 K/uL (0.01-0.20); Immature Granulocytes % (auto) 1.2 %; Mean Corpuscular Hemoglobin 29.3 pg (25.0-34.0); Mean Corpuscular Volume 87.7 fL (80.0-100.0); Platelet Count 247 K/uL (130-400); RDW Standard Deviation 54.4 fL (36.4-46.3); Red Blood Count 4.57 M/uL (4.70-6.10); White Blood Count 12.15 K/ul (4.8-10.8)
[2025-01-15 05:37] LABS: Anion Gap 6.0 (3-11); Blood Urea Nitrogen 43.0 mg/dl (6-23); Calcium 8.3 mg/dl (8.6-10.3); Carbon Dioxide 21.0 mmol/L (21-32); Chloride 108.0 mmol/L (98-107); Creatinine Clr Calc Pharmacy 27.1 ml/min; Potassium 5.2 mmol/L (3.5-5.1); Sodium 135.0 mmol/L (136-145)
--- NOTE | 2025-01-15 07:03 | Hospitalist Progress Note ---
Date of Service January 15, 2025 Assessment & Plan (1) Acute kidney injury superimposed on stage 3a chronic kidney disease: Plan: -Hold Lisinopril and Triamterene, with cardiac med reconciliation follow up tomorrow after new labs reviewed (2) HFrEF (heart failure with reduced ejection fraction): Plan: -Continued garbing with LifeVest Defibrillator (3) Paroxysmal A-fib: Plan: -Continued Stroke & DVT prophylaxis (while in hospital) reducing Eliquis dosing to 2.5 mg (4) Hyperkalemia: Plan: -labs in ER 6.0, on admission 5.2 mmol/L -EKG reviewed no evidence peak T waves -Monitor and review for tomorrow (5) Hypertension: Plan: -Hydralazine medication continued at 25 mg po tab (6) Prostate cancer: Plan: -recently diagnosed -Continued follow up outpt Admission and Anticipated Discharge Date Admission Date: January 14, 2025 Review of Systems Review of Systems: All systems reviewed & are unremarkable except as noted in HPI & below Physical Exam Constitutional: WD/WN, vitals as above Eyes: PERRL, conjunctivae normal, anicteric sclerae ENMT: external ear and nose normal, oropharynx normal Neck: trachea midline, no thyromegaly Respiratory: normal respiratory effort, lungs clear to auscultation Cardiovascular: RRR, no murmur, no edema Chest (Breasts): normal inspection/palpation of breasts Gastrointestinal (Abdomen): normal bowel sounds, soft, nontender, no hepatosplenomegaly Skin: no rashes, warm and dry Psychiatric: A+Ox3, euthymic affect Lymphatic: no cervical or axillary lymphadenopathy Results & Data Results & Data Vital Signs (Past 12 Hours) Vital Signs Temp Pulse Pulse Pulse Resp BP Pulse Ox 01/15/25 04:02 36.8 C 64 20 97/54 L 94 01/15/25 00:17 37.1 C 85 20 131/76 97 01/14/25 22:16 67 18 96 01/14/25 21:55 69 01/14/25 21:28 67 01/14/25 20:56 01/14/25 20:56 36.4 C L 72 12 166/75 H 98 01/14/25 20:38 O2 Del Method 01/15/25 04:02 Room Air 01/15/25 00:17 Room Air 01/14/25 22:16 Room Air 01/14/25 21:55 01/14/25 21:28 01/14/25 20:56 Room Air 01/14/25 20:56 Room Air 01/14/25 20:38 Room Air
[2025-01-15] MEDS: BUDESONIDE 0.25 MG/2 ML VIAL (PULMICORT) INH SCH (07:25)
[2025-01-15] MEDS: FORMOTEROL 20 MCG/2 ML VIAL INH SCH (07:25)
--- NOTE | 2025-01-15 09:41 | XCELERA ---
[id number]
--- NOTE | 2025-01-15 10:36 | Cardiology Consultation ---
Date of Consultation January 15, 2025 Assessment & Plan (1) CAD (coronary artery disease): (2) Paroxysmal A-fib: (3) Mitral regurgitation: (4) Ischemic cardiomyopathy: Plan 1. Ischemic cardiomyopathy: He currently seems well compensated. He is lying flat on his back. Lung examination is benign. No evidence of peripheral edema. Unfortunately, it seems that he was taking lisinopril and Entresto which may have resulted in some compromised renal function. He would benefit from a more aggressive regimen overall. I would continue his carvedilol. When the opportunity presents itself and his renal function stabilizes we will reinstitute Entresto at the lowest dose. I think he could stay off his triamterene hydrochlorothiazide and we could add spironolactone as an alternative. Once his renal function improves he would also be a good candidate for an SGLT2 inhibitor His current degree of LV dysfunction puts him in a category of patients of benefit from an ICD as primary prevention given sudden cardiac . However, we will be intensifying his medical therapy and there is been some history of improvement over time. Hopefully his LV function will improve to the point where he does not benefit from an ICD. He will continue his wearable defibrillator in the interim. 2. Coronary disease: Status post surgical revascularization in July 2024. No current symptoms suggestive of coronary ischemia or insufficiency. He will continue secondary prevention with aspirin, apixaban and high-dose atorvastatin. 3. Atrial fibrillation: Reported in the postop period. I do not see any documentation of atrial fibrillation recently. Most patients in this category would have some form of outpatient monitoring followed by discontinuation of apixaban in the absence of more atrial fibrillation. Monitoring currently complicated by his wearable defibrillator. I think we will continue the Eliquis for now. We can consider outpatient monitoring when the opportunity arises and potentially discontinue the medication if no additional atrial fibrillation is documented. 4. Mitral regurgitation: Mild. Will follow this over time. History of Present Illness Reason for Consultation: Cardiomyopathy Requesting Physician: Bharathi Attending Physician: Philomena Ascencio, History of Present Illness The patient is a 69-year-old gentleman with an extensive cardiac history to include severe coronary disease status post percutaneous and surgical revascularization. He also has a history of postoperative atrial fibrillation, valvular heart disease and COPD. He was evaluated and [facility] early in 2024 after an acute coronary syndrome. Angiography at that time revealed severe multivessel disease and he underwent surgical revascularization in July 2024. He had some postoperative atrial fibrillation and was initially on amiodarone and Eliquis. Amiodarone is subsequently been discontinued. The patient was also noted to have reduced LV systolic function subsequent to his surgery and was wearing a wearable defibrillator for a period of time. The LV function improved on repeat echocardiogram and the wearable defibrillator was discontinued. He reports being admitted to [facility] twice over the past few months with symptoms of pneumonia. Most recently had significant breathing difficulty and was felt to have decompensated congestive heart failure. Echocardiogram performed at [facility] revealed severely reduced LV systolic function again and his medical regimen was intensified to include Entresto. Unfortunately, it seems the patient did not discontinue lisinopril and was taking both medications. Outpatient monitoring suggested compromised renal function and he was referred to our hospital for evaluation. The patient states that he has simply felt tired and fatigued recently. He did not endorse symptoms of worsening dyspnea lately. No current orthopnea. No lower extremity edema. In general breathing has improved since discharge a few days ago. He has not had symptoms of chest discomfort or dizziness. He has not been aware of any palpitations over the past few months. He did report some paresthesias and pain in his hands recently. This appears to have improved this morning. Energy level also improved this morning. Allergies Allergy/AdvReac Type Severity Reaction Status Date / Time ibuprofen [From Motrin] Allergy Intermediate GI Upset, Verified 01/14/25 08:50 diffuse rash Home Medications Medication Instructions Recorded Confirmed Type albuterol sulfate 90 mcg/actuation 2 puff inhalation Q6H PRN 03/15/23 01/14/25 Rx aerosol inhaler (Ventolin HFA) shortness of breath or wheezing #6.7 grams arformoterol 15 mcg/2 mL solution 2 ml inhalation BID 08/08/24 01/14/25 History for nebulization revefenacin 175 mcg/3 mL solution 175 mcg inhalation DAILY 08/08/24 01/14/25 History for nebulization (Gaudencio) carvedilol 12.5 mg tablet 12.5 mg PO BID 90 days #180 tabs 08/26/24 01/14/25 Rx hydralazine 25 mg tablet 25 mg PO TID 90 days #270 tabs 08/26/24 01/14/25 Rx magnesium oxide 400 mg PO DAILY #90 caps 08/26/24 01/14/25 Rx multivitamin with minerals 1 cap PO DAILY #90 caps 08/26/24 01/14/25 Rx lisinopril 10 mg tablet 10 mg PO DAILY #90 tabs 10/28/24 01/14/25 Rx evolocumab 140 mg/mL subcutaneous 140 mg subcut .Every 2 weeks #2 mL 12/04/24 01/14/25 Rx pen injector (Repatha SureClick) apixaban 5 mg tablet (Eliquis) 5 mg PO BID 01/07/25 01/14/25 History aspirin 81 mg tablet,delayed 81 mg PO DAILY 01/07/25 01/14/25 History release (Adult Low Dose Aspirin) atorvastatin 80 mg tablet 80 mg PO DAILY #30 tabs 01/07/25 01/14/25 Rx budesonide 0.25 mg/2 mL suspension 0.25 mg inhalation BID 01/07/25 01/14/25 History for nebulization sacubitril 24 mg-valsartan 26 mg 1 tab PO BID 01/07/25 01/14/25 History tablet (Entresto) triamterene 37.5 1 cap PO DAILY #30 caps 01/07/25 01/14/25 Rx mg-hydrochlorothiazide 25 mg capsule Patient History Medical History APONTE (dyspnea on exertion) Anxiety and depression History of COVID-19 Degenerative disc disease Chronic back pain Post traumatic stress disorder Hx of rheumatic fever Closed compression fracture of L3 vertebra Surgical History History of artificial joint Stented coronary artery Status post right knee replacement (~08/2021) Status post medial meniscectomy of knee S/P coronary artery stent placement History of total right knee replacement History of arthroscopy History of cochlear implant History of heart artery stent History of cholecystectomy History of colonoscopy History of cardiac cath History of laminectomy History of back surgery Family History Other Adopted Family history not known due to adoption Social History Smoking Status: Former smoker Tobacco Type: Cigarettes Age Started Using Tobacco: 13; Age Quit Using Tobacco: 69; packs per day: 0.5; Cigarettes Per Day: 10 cigs/day; Second Hand Exposure: Yes; Do You Dip or Chew Tobacco: No; Tobacco Cessation Education Requested by Patient: No Hx Alcohol Use: No Hx Substance Use: No Preferred Language: Turkish Communication Ability: Effective Visual Impairment: No Limitations Hearing Ability: Use of Hearing Aid [employer] Required: No Beliefs That Will Affect Care: None marital status: Current Living Situation: Spouse and Family Current Living Situation Comment: Home with spouse, adult child, and grandchildren current occupational status: retired How many Children do You have: 4 Other Information That Helps Us Care for You: No Feels Safe at Home: Yes Childhood Exposure to Second-Hand Smoke: Yes Diet: regular caffeine: Yes during the past year weight has: remained stable Dental Care, Regularly: No Physical Activity Frequency: Daily Seatbelt Use: always Sunscreen Use: No Assistive Devices: Denture - Upper, Denture - Lower and Glasses Assistive Devices Comment: cochlear implant Review of Systems Review of Systems: Per HPI Physical Exam Physical Exam: The patient is alert and oriented. Mood and affect appeared normal. He answered all questions appropriately. Lying flat. HEENT: Pupils are equal and reactive to light and accommodation. Extraocular movements are intact. The sclerae are anicteric. Neuro: Cranial nerves intact Chest: Well-healed sternotomy scar. Lungs: Clear to auscultation bilaterally. He has good air movement without use of accessory muscles. No rales wheezes or rhonchi. Cardiac: Heart demonstrates a regular rate and rhythm. Normal S1 and S2. No murmurs on examination. Pulses: The patient has palpable radial pulses bilaterally that are equal in intensity Extremities: There was no evidence of hypoperfusion. There is no cyanosis or clubbing. There is no edema. Skin: I did not appreciate any rashes on examination today. Results & Data Vital Signs (Past 12 Hours) Vital Signs Temp Pulse Pulse Resp BP Pulse Ox O2 Del Method 01/15/25 07:49 72 01/15/25 07:46 36.7 C 64 18 123/66 97 Room Air 08/06/25 07:25 68 18 96 Room Air 01/15/25 04:02 36.8 C 64 20 97/54 L 94 Room Air 01/15/25 00:17 37.1 C 85 20 131/76 97 Room Air Laboratory Results Abnormal Lab Results 01/14/25 01/14/25 01/14/25 14:10 14:16 15:09 WBC 13.00 H RBC 4.46 L Hgb 13.0 L POC Hgb 14.3 Hct 38.9 L POC Hct 42 MCV 87.2 MCH 29.1 MCHC 33.4 RDW Std Deviation 55.9 H RDW Coeff of Wes 17.4 H Plt Count 256 MPV 8.8 L Immature Gran % (Auto) 1.6 Neut % (Auto) 79.5 Lymph % (Auto) 9.5 Hughes % (Auto) 7.7 Eos % (Auto) 1.4 Baso % (Auto) 0.3 Neut # (Auto) 10.33 H Lymph # (Auto) 1.24 Hughes # (Auto) 1.00 H Eos # (Auto) 0.18 Baso # (Auto) 0.04 Immature Gran # (Auto) 0.21 H POC Sodium 136 Sodium 136 POC Potassium 5.2 H Potassium 5.2 H POC Chloride 105 Chloride 105 Carbon Dioxide 26 POC Total CO2 23 L Anion Gap 5 POC Anion Gap 15.0 L POC BUN 41 H BUN 43 H Creatinine 2.35 H POC Creatinine 2.5 H Est Cr Clr Drug Dosing 25.8 eGFR 29.22 BUN/Creatinine Ratio 18.3 Glucose 103 H POC Glucose (other) 100 H Fasting Glucose Lactate 0.8 Calcium 8.8 POC Ioniz Calcium Rhys 1.13 Total Bilirubin 0.4 AST 23 ALT 26 Alkaline Phosphatase 104 Total Protein 6.4 Albumin 3.7 Globulin 2.7 Albumin/Globulin Ratio 1.4 Urine Color Urine Appearance Urine pH Ur Specific Bondurant Urine Protein Urine Glucose (UA) Urine Ketones Urine Blood Urine Nitrite Urine Bilirubin Urine Urobilinogen Ur Leukocyte Esterase Urine WBC (Auto) Urine RBC (Auto) U Hyaline Cast (Auto) U Epithel Cells (Auto) Urine Bacteria (Auto) Urine Comment 01/14/25 01/15/25 22:30 03:48 WBC 12.15 H RBC 4.57 L Hgb 13.4 L POC Hgb Hct 40.1 L POC Hct MCV 87.7 MCH 29.3 MCHC 33.4 RDW Std Deviation 54.4 H RDW Coeff of Wes 17.0 H Plt Count 247 MPV 9.5 Immature Gran % (Auto) 1.2 Neut % (Auto) 75.9 Lymph % (Auto) 12.1 Hughes % (Auto) 7.9 Eos % (Auto) 2.6 Baso % (Auto) 0.3 Neut # (Auto) 9.22 H Lymph # (Auto) 1.47 Hughes # (Auto) 0.96 H Eos # (Auto) 0.32 Baso # (Auto) 0.04 Immature Gran # (Auto) 0.14 POC Sodium Sodium 135 L POC Potassium Potassium 5.2 H POC Chloride Chloride 108 H Carbon Dioxide 21 POC Total CO2 Anion Gap 6 POC Anion Gap POC BUN BUN 43 H Creatinine 2.23 H POC Creatinine Est Cr Clr Drug Dosing 27.1 eGFR 31.12 BUN/Creatinine Ratio Glucose POC Glucose (other) Fasting Glucose 84 Lactate Calcium 8.3 L POC Ioniz Calcium Rhys Total Bilirubin AST ALT Alkaline Phosphatase Total Protein Albumin Globulin Albumin/Globulin Ratio Urine Color Yellow Urine Appearance Clear Urine pH 6.0 Ur Specific Bondurant 1.014 Urine Protein 1+ H Urine Glucose (UA) Negative Urine Ketones Negative Urine Blood Negative Urine Nitrite Negative Urine Bilirubin Negative Urine Urobilinogen Negative Ur Leukocyte Esterase Negative Urine WBC (Auto) 0-5 Urine RBC (Auto) 0-2 U Hyaline Cast (Auto) 0-2 U Epithel Cells (Auto) 0-2 Urine Bacteria (Auto) None Seen Urine Comment Diagnostic Findings Echocardiogram 01/15/2025: Moderate reduced LV systolic function ejection fraction of 30 to 35%. Stage I diastolic dysfunction. Mild mitral regurgitation. Cardiac catheterization 07/2024: 70% mid LAD stenosis, 60% D1 stenosis, 99% mid LCx stenosis, 99% OM3 stenosis, 70% proximal OM1 stenosis, 40% distal RCA stenosis, 50% proximal RPL branch 07/2024 CABG x 5 vessels including Sequential THAO to D1 and LAD, Sequential GTZ to RI and OM, and a SVG to RPL branch. PG Care Time/CCT Total # of Minutes Spent Total Time Spent with Patient: Total time spent is greater than 50% in coordination of care (as documented) at patient's floor/unit and/or counseling patient: Coding Level of Care Code 21995 INT INP/OBS CARE 75MIN Diagnoses CAD (coronary artery disease) I25.10 Paroxysmal A-fib I48.0 Nonrheumatic mitral valve regurgitation I34.0 Cardiac valve disease etiology: nonrheumatic Ischemic cardiomyopathy I25.5 (3) Mitral regurgitation Cardiac valve disease etiology: nonrheumatic Qualified Code(s): I34.0 - Nonrheumatic mitral (valve) insufficiency
--- NOTE | 2025-01-15 11:04 | Electrocardiogram Report ---
Test Reason : Blood Pressure : */* mmHG Vent. Rate : 67 BPM Atrial Rate : 67 BPM P-R Int : 146 ms QRS Dur : 78 ms QT Int : 392 ms P-R-T Axes : 77 61 231 degrees QTcB Int : 414 ms Normal sinus rhythm Possible Inferior infarct (cited on or before 06-Mar-2023) Poor R wave progression, consider anterior OH vs. lead placement vs. LVH Abnormal ECG When compared with ECG of 14-Jan-2025 14:06, (unconfirmed) No significant change was found Confirmed by Hernán Smith ([id number]) on 01/15/2025 11:04:27 AM Referred By: Scarlett Aden Confirmed By: Hernán Smith
--- NOTE | 2025-01-15 11:35 | Discharge Summary ---
Date of Service January 15, 2025 Admission HPI Per Admitting Provider Pt is 69 y/o male presenting to the ED with abnormal lab values after an appointment with his primary care and feelings of fatigue and general unwellness. PMH is extensive including s/p CABG, HFrEF, Paroxysmal A. Fib., CKD Stage 3, HTN, Tobacco abuse, Dyslipidemia, COPD, Intermittent Claudication. At PCP, pt complained of hands being cold to touch and at times tingling, labs were ordered and showed Cr. of 2.39 and BUN 49. In response PCP, sent pt to ED. At ED, pt reported SOB with exertion, but no chest pain or leg swelling. He has no history of blood clots. On admission, pt is AOx3, and stable, and states verbally he is doing okay. Labs show Cr of 2.39 and BUN 49, and a Potassium of 6 mmol/L. WBC count is also elevated at 13 K/ul, with no signs or symptoms of fever or infection (fever, chills or myalgia) In July of this year, pt had a CABG procedure performed, from which he indicated he recovered very well. Approximately 1 month later, in the month of August, patient was hospitalized for pneumonia. Approximately, 2 weeks ago, pt was hospitalized again for pneumonia at which point he was intubated. At last hospitalization for pneumonia, Pt Ejection fraction noted at 20%, cardiology consult added Entresto, in addition to regular medications of lisinopril, carvedilol, Triamterene Admission Exam Per Admitting Provider Physical Exam Physical Exam: On Respiratory Auscultation, light rhonchi heard bilaterally in lower lobes Constitutional: WD/WN, vitals as above Eyes: PERRL, conjunctivae normal, anicteric sclerae ENMT: external ear and nose normal, oropharynx normal Neck: trachea midline, no thyromegaly Respiratory: normal respiratory effort, lungs clear to auscultation Cardiovascular: RRR, no murmur, no edema Chest (Breasts): normal inspection/palpation of breasts Gastrointestinal (Abdomen): normal bowel sounds, soft, nontender, no hepatosplenomegaly Musculoskeletal: no cyanosis or clubbing, extremities motor strength 5/5 Skin: no rashes, warm and dry Psychiatric: A+Ox3, euthymic affect Lymphatic: no cervical or axillary lymphadenopathy Principal Diagnosis -Nam secondary to medication interactions Discharge Exam General: AOx3, mood stable Cardiac: S1 & S2 heard, no gallops, rubs and murmurs Respiratory: slight rhonchi heard on auscultation of lower lobes bilaterally GI: on palpation (light and heavy) no tenderness felt. Bowel sounds heard on auscultation Discharge Data Allergies Allergy/AdvReac Type Severity Reaction Status Date / Time ibuprofen [From Motrin] Allergy Intermediate GI Upset, Verified 01/14/25 08:50 diffuse rash Consultations 01/14/25 16:01 ED Decision to Admit Stat 01/14/25 20:56 Consult Cardiology Routine Hospital Course (1) Acute kidney injury superimposed on stage 3a chronic kidney disease: -Acute elevation in kidney readings with Cr of 2.39 and BUN 49, and a Potassium of 6 mmol/ in the setting CKD type 3. Baseline Cr ranging between 1.3-1.6 -During last hospital stay 2 weeks ago for pneumonia, cardiology findings of decreased ejection fraction to 20%, pushed forward medication adjustments with overlapping function - On arrival to ED, Pt taking Lisinopril 10 mg, Carvedilol 12.5 mg, Entresto 24- 26 mg, and Triamterene 37.5-25 mg 1 cap. - At this time we will hold the Lisinopril and Triamterene due to medication overlap likely causing NAM -In addition, we will reduce Eliquis dosing to 2.5 mg to further adjust for renal function - pt follows with nephrology at [facility], has been CKD stage 3 since 2021 - lisinopril and Triamterene discontinued while on hospital stay, check labs 2 days from discharge. Upon visit to pcp, reconcile medications at next PCP visit within 1 week -Hold lisinopril, and consider adding the Triamterene if stable and labs improve on follow up PCP visit (2) HFrEF (heart failure with reduced ejection fraction): -Status post CABG x 5 in Continued garbing with LifeVest Defibrillator - TTE study done today indicates an ejection fraction of 30 to 35%, with moderate reduction in systolic function. Future cardiology evaluation during period of non hospitalization. Improvement noted on ejection fraction since last hospitalization for pneumonia at 20% -Continue Entresto and Carvedilol, hold Lisinopril, and consider adding Triamterene as mentioned above (3) Paroxysmal A-fib: -Chronic -prior Amiodarone -- discontinued -Continue Eliquis at reduced dose (2.5 mg) to adjust for renal function (4) Hyperkalemia: -labs in ER 6.0, on admission 5.2 mmol/L; today also at 5.2 -encourage PO hydration and repeat labs in 2-3 days -Potassium elevated due to NAM -EKG reviewed no evidence peak T waves -Hyperkalemia finding as a result of NAM, next day after admit lab values from 6.0 to 5.2. Near resolution. As noted above, review labs post discharge in 2 days and with PCP (5) Hypertension: -On arrival pt's bp is 181/89, now 123/66 -Hydralazine medication continued at 25 mg po tab, Lisinopril discontinued due to NAM -Hydralzine medication to be ordered prn upon recheck if BP elevation persists -other med adjustments as detailed above -Continue with discontinuation of lisinopril, as BP controlled with Hydralazine. Lisinopril, in addition to the added Entresto for HFrEF, likely suspected cause of NAM. As above, labs to be taken in 2 days to see if continued resolution of NAM with Lisinopril as culprit. PCP and Cardio follow up to determine appropriate course therafter (6) Prostate cancer: -recently diagnosed -Not taking any medications -Continued follow up outpt -Post discharge, PCP to follow up in outpt setting. (7) CAD (coronary artery disease): -hx of ischemic cardiomyopathy -Remains stable on Statin & Aspirin -On discharge, pt to remain stable on Statin and Asprin Total Time Total Time Spent Total Time Spent (In Minutes): As per attending attestation Discharge Plan Discharge Items Patient Disposition: Home - Self-Care Reason For Visit: NAM ON CKD Discharge Diagnosis: NAM secondary to medication interaction Condition on Discharge: Fair Activity: Per Instructions section Non-emergency contact: Primary Care Provider, [employer] Call non-emergency contact if: your symptoms worsen and your temperature is above 101.5 Follow-up/Referrals: Leonard Nicloas CRNP [Primary Care Provider] - 01/22/25 10:30 am (Primary Care hospital follow up scheduled on 01/22/25 at 10:30 with Scarlett Keiko PA-C) Diet: Heart Healthy and Low Sodium (2gm) Ambulatory Orders: Basic Metabolic Panel (Routine) Timeframe: 3 Days Location: Determined by Patient Ordered By: Kelli Harper Attending Provider Instructions: You were admitted to the hospital after your primary care provider had noticed some changes in lab work that they had ordered from their office. Specifically, changes are consistent with an acute kidney injury (NAM) and an elevated potassium level. We believe that this NAM may have come as a consequence of recent initiation of a medication called Entresto, which when taken in combination/at the same time as your lisinopril and triamterene, it can lead to kidney injury. For this reason, we stopped your lisinopril and triamterene and continue your Entresto. Given that you are clinically stable, we will be discharging you home today. We advise you continue to hold (do not take) your lisinopril and triamterene until you are able to discuss this with your primary care provider. Given your current renal function, we have also changed your Eliquis dose to 2.5 mg two times a day. We will be ordering blood work that we recommend you have done in 2-3 days to see how your kidneys are progressing. We also advised that you follow-up with your primary care provider approximately 1 week after discharge to discuss your medications and for post-discharge evaluation. A discharge summary will be sent to your primary care physician to ensure continuity of care. Please bring this discharge summary with you to your next office appointment so that your provider can review it at that time. CONTACT YOUR PRIMARY CARE PROVIDER if you experience any of the following: Worsening of symptoms Fever, chills, or fatigue Difficulty following your treatment plan, or difficulty taking medications CALL 911 OR GO TO THE EMERGENCY DEPARTMENT if you experience any of the following: Sudden, severe abdominal pain or nausea/vomiting Severe chest pain, or chest pain that radiates (moves) to your jaw or arm Sudden, severe shortness of breath or difficulty breathing Thank you for allowing us to participate in your care. Pending Studies at Discharge: No Stand-Alone Forms: [facility] [employer], Smoking Cessation Medications and DC Order Prescriptions: New Eliquis 2.5 mg Tablet 2.5 mg PO BID Qty: 60 0RF Continued carvedilol 12.5 mg tablet 12.5 mg PO BID 90 Days Qty: 180 3RF Rx Instructions: must administer with a meal/food hydralazine 25 mg tablet 25 mg PO TID 90 Days Qty: 270 3RF magnesium oxide 400 mg magnesium capsule 400 mg PO DAILY Qty: 90 3RF multivitamin with minerals Capsule 1 cap PO DAILY Qty: 90 3RF Repatha SureClick 140 mg/mL pen injector 140 mg subcut .Every 2 weeks Qty: 2 5RF albuterol sulfate [Ventolin HFA] 90 mcg/actuation HFA aerosol inhaler 2 puff INH Q6H PRN (Reason: shortness of breath or wheezing) Qty: 6.7 2RF arformoterol 15 mcg/2 mL solution for nebulization 2 ml inhalation BID Yupelri 175 mcg/3 mL solution for nebulization 175 mcg inhalation DAILY atorvastatin 80 mg tablet 80 mg PO DAILY Qty: 30 2RF Entresto 24-26 mg tablet 1 tab PO BID aspirin [Adult Low Dose Aspirin] 81 mg tablet,delayed release (DR/EC) 81 mg PO DAILY budesonide 0.25 mg/2 mL suspension for nebulization 0.25 mg inhalation BID Discontinued lisinopril 10 mg tablet 10 mg PO DAILY Qty: 90 3RF No Action Eliquis 5 mg tablet 5 mg PO BID triamterene-hydrochlorothiazid 37.5-25 mg capsule 1 cap PO DAILY Qty: 30 2RF Discharge Orders: Discharge Order (Routine); Ordered 01/15/25 Ordered By: Divina Larson/Other Patient Handouts: How Your Kidneys Work Admission Data Admit Date/Time: 01/14/25 18:11 Attending Provider: Philomena Ascencio Admit Provider: Kelli Garvin Primary Care Provider: Leonard Nicolas Other Providers: Philomena Ascencio; Kevin Hill Other Interventions: Discharge Summary Assessment (RN) Last Done: 01/15/25 14:04 Supervising Physician Co-Signing Physician Notes I personally examined the patient and verified pierre points of history and exam, discussed case, and agree with decision making and plan documented by Dr. Garvin. Patient is a 69-year-old male with complicated cardiac history including CAD with CABG x 5 (07/2024), HFrEF (EF 15-20% 01/02/25), ischemic/dilated cardiomyopathy on LifeVest, CKDIII, hypertension, hyperlipidemia, COPD, tobacco abuse, prostate cancer, OA with infected prosthesis, and anxiety/depression on admission for fatigue and shortness of breath and found to have abnormal renal function on labs ordered by PCP. Patient evaluated by cardiology. Lisinopril and triamterene-hydrochlorothiazide have been discontinued at present with recommendation to consider spironolactone in the future. Consideration of SGLT2 inhibitor recommended once kidney function improves. Eliquis dose reduced on admission, patient remains on this for paroxysmal A-fib. Patient remains on a LifeVest, echocardiogram performed in the hospital shows LVEF 30 to 35% with moderately reduced LV systolic function, grade 1 diastolic function, severely hypokinetic inferior wall and moderately hypokinetic remaining dale. Patient recommended to continue monitoring blood pressure closely, should schedule follow-up with PCP within a week as well as close follow-up with cardiology and nephrology. Total attending time 36 minutes. Resident Activity Tracking Resident Involvement: Resident Care Provided Care Provided: Adult Hospital Medicine
[2025-01-15 11:56] VITALS: BP 115/62; PULSE 70; RESP 20; TEMP 97.9; O2SAT 96
--- NOTE | 2025-01-17 08:25 | Electrocardiogram Report ---
Test Reason : Blood Pressure : */* mmHG Vent. Rate : 83 BPM Atrial Rate : 83 BPM P-R Int : 136 ms QRS Dur : 78 ms QT Int : 338 ms P-R-T Axes : 80 70 236 degrees QTcB Int : 397 ms Normal sinus rhythm Possible Left atrial enlargement Abnormal ECG When compared with ECG of 16-Nov-2023 18:57, Borderline criteria for Anterolateral infarct are no longer Present T wave inversion now evident in Inferior leads Confirmed by Hernán Smith ([id number]) on 01/17/2025 8:24:41 AM Referred By: Scarlett Aden Confirmed By: Hernán Smith
== END 2025-01-15 14:40 | disposition home or self-care (01) | DRG 683 ==
LOC: ED 13:45 → 2N 18:11